=== PATIENT | male | born 1970 | race Caucasian/White ===

== ENCOUNTER → 2020-06-04 08:42 | Outpatient (BNVA) | payer OTHER, SELFPAY | PROVIDERS: PCP Internal Medicine; Referring Provider Internal Medicine; Visit Provider Physician Assistant | DX: Z98.84 Bariatric surgery status (principal); F10.20 Alcohol dependence, uncomplicated | CPT/HCPCS: 99214 ==

== ENCOUNTER → 2020-08-12 09:23 | Outpatient (BNVA) | payer OTHER, SELFPAY | PROVIDERS: PCP Internal Medicine; Visit Provider Physician Assistant | DX: E66.3 Overweight (principal); K91.2 Postsurgical malabsorption, not elsewhere classified; Z90.3 Acquired absence of stomach [part of]; Z98.84 Bariatric surgery status | CPT/HCPCS: Q3014 ==

== ENCOUNTER → 2020-08-17 08:12 | Outpatient (BNVA) | payer OTHER, SELFPAY | PROVIDERS: Visit Provider Dietitian, Registered | DX: Z76.89 Persons encountering health services in other specified circumstances (principal) ==

== ENCOUNTER 2020-11-23 06:09 | Outpatient (REF) | payer OTHER, SELFPAY ==
[2020-11-23 06:35] LABS: MANUAL DIFF FLAG NO
[2020-11-23 06:59] LABS: Basophils Percent Auto 0.3 % (0-2); Eosinophils Absolute Auto 0.2 X10*3/uL (0.0-0.4); Eosinophils Percent Auto 1.9 % (0-4); Hematocrit 46.1 % (42-52); Hemoglobin 15.3 g/dl (14.0-18.0); Imm Gran Abs Auto 0.08 X10*3/uL (0.00-0.03); Imm Gran Pct Auto 0.7 % (0.0-0.4); Lymphocytes Percent Auto 32.8 % (20-40); Mean Corpuscular HGB Conc 33.2 g/dl (31.0-36.0); Mean Corpuscular Hemoglobin 31.2 pg (27.0-33.0); Mean Corpuscular Volume 93.9 fL (80-98); Mean Platelet Volume 10.3 fL (9.4-12.4); Monocytes Absolute Auto 0.9 X10*3/uL (0.1-1.2); Monocytes Percent Auto 7.8 % (2-11); Neutrophils Absolute Auto 6.8 X10*3/uL (2.0-8.3); Neutrophils Percent Auto 56.5 % (45-73); Platelet Count 296 X10*3/uL (160-400); Red Blood Count 4.91 X10*6/uL (4.60-5.80); Red Cell Distribution Width 12.7 % (11.0-16.0); White Blood Count 12.1 X10*3/uL (4.8-10.8)
[2020-11-23 07:12] LABS: Alanine Aminotransferase 15 U/L (0-40); Albumin Level 4.2 g/dL (3.5-5.0); Alkaline Phosphatase 65 U/L (39-117); Anion Gap 13 (12-20); Aspartate Amino Transferase 16 U/L (5-37); Bilirubin Total 0.8 mg/dL (0.0-1.0); Blood Urea Nitrogen 15 mg/dL (9-16); Calcium 9.8 mg/dL (8.4-10.2); Carbon Dioxide 24 mmol/L (22-29); Chloride 107 mmol/L (96-108); Cholesterol 217 mg/dL; Estimated Glomerular Filt Rate > 60; Glucose Fasting 104 mg/dL (60-99); HDL Cholesterol 65 mg/dL; Iron 158 mcg/dL (45-160); LDL Cholesterol Calculated 129 mg/dl; Percent Iron Saturation 41 % (15-50); Potassium 4.2 mmol/L (3.3-5.1); Sodium 140 mmol/L (135-145); Total Iron Binding Capacity 390 mcg/dL (228-428); Total Protein 7.3 g/dL (6.5-8.0); Triglycerides 115 mg/dL; Unsaturated Iron Binding 232 ug/dL
[2020-11-23 07:15] LABS: Estimated Average Glucose 103 mg/dL; Hemoglobin A1c % 5.2 %
[2020-11-23 07:33] LABS: Ferritin 284 ng/mL (20-250); TSH reflex Free T4 0.95 uIU/mL (0.32-4.0); Vitamin D 25-OH Total 24.4 ng/mL (>30)
[2020-11-23 09:24] LABS: Folate > 20.0 ng/mL (> or = 4.0); Vitamin B12 496 pg/mL (200-900)
[2020-11-24 04:41] LABS: Insulin Level Total 4.3 uIU/mL
[2020-11-24 17:52] LABS: Calcium (PTHI) 9.8 mg/dL (8.6-10.3); PTHI 17 pg/mL (14-64)
[2020-11-26 01:52] LABS: Zinc 80 mcg/dL (60-130)
[2020-11-27 12:42] LABS: Vitamin B1 28 nmol/L (8-30)
[2020-11-27 15:26] LABS: Vitamin A 79 mcg/dL (38-98)
[2020-11-27 17:02] LABS: Parathyroid Hormone Related Pr 12 pg/mL (14-27)
== END 2020-11-23 06:10 | disposition home or self-care (01) ==
LOC: HO.LAB 06:09
PROVIDERS: Absent Provider Physician Assistant; PCP Nurse Practitioner Family; Visit Provider Physician Assistant
DX: K91.2 Postsurgical malabsorption, not elsewhere classified (principal); E66.01 Morbid (severe) obesity due to excess calories; F10.20 Alcohol dependence, uncomplicated; Z98.84 Bariatric surgery status; Z90.3 Acquired absence of stomach [part of]
CPT/HCPCS: 36415; 80053; 80061; 82306; 82607; 82728; 82746; 83036; 83519; 83525; 83540; 83970; 84425; 84443; 84590; 84630; 85025; 86140

== ENCOUNTER → 2020-12-15 08:22 | Outpatient (BNVA) | payer OTHER, SELFPAY | PROVIDERS: PCP Nurse Practitioner Family; Visit Provider Physician Assistant | DX: F10.20 Alcohol dependence, uncomplicated (principal); F19.20 Other psychoactive substance dependence, uncomplicated; F31.9 Bipolar disorder, unspecified; Z98.84 Bariatric surgery status | CPT/HCPCS: 99212 ==

== ENCOUNTER → 2021-01-25 13:50 | Outpatient (BNVA) | payer OTHER, SELFPAY | PROVIDERS: PCP Nurse Practitioner Family; Visit Provider Internal Medicine | DX: F10.20 Alcohol dependence, uncomplicated (principal) | CPT/HCPCS: 96372; 99212; J2315 ==

== ENCOUNTER → 2021-02-22 09:42 | Outpatient (BNVA) | payer OTHER, SELFPAY | PROVIDERS: PCP Nurse Practitioner Family; Visit Provider Internal Medicine | DX: F10.20 Alcohol dependence, uncomplicated (principal) | CPT/HCPCS: 80305; 96372; 99212; J2315 ==

== ENCOUNTER → 2021-04-01 13:59 | Outpatient (BNVA) | payer OTHER, SELFPAY | PROVIDERS: PCP Nurse Practitioner Family; Referring Provider Nurse Practitioner Family; Visit Provider Physician Assistant | DX: F10.20 Alcohol dependence, uncomplicated (principal); E66.3 Overweight; Z98.84 Bariatric surgery status; Z68.29 Body mass index [BMI] 29.0-29.9, adult | CPT/HCPCS: 99212 ==

== ENCOUNTER 2021-05-12 08:38 | Emergency (ER) | payer OTHER, SELFPAY ==
--- NOTE | ~2021-05-12 | XR_ITS ---
EXAMINATION: XR CHEST CLINICAL INFORMATION: Chest pain COMPARISON: Chest radiographs 11/15/2018, 07/25/2018 TECHNIQUE: Portable upright AP view of the chest was obtained. FINDINGS: There is no pneumothorax or pleural reaction. No airspace consolidation or definite groundglass opacity. Costophrenic sulci are clear. Fine linear density left base likely bronchovascular markings rather than disc atelectasis. The heart is normal in size. The hilar and mediastinal contours and visualized bony structures are unremarkable. XR/XR chest 1V IMPRESSION: Unremarkable examination.
--- NOTE | 2021-05-12 08:46 | ECG_ITS ---
Test Reason : CHEST PAIN Blood Pressure : / mmHG Vent. Rate : 094 BPM Atrial Rate : 094 BPM P-R Int : 160 ms QRS Dur : 094 ms QT Int : 368 ms P-R-T Axes : 069 030 031 degrees QTc Int : 460 ms Normal sinus rhythm Normal ECG When compared with ECG of 15-AUG-2016 14:55, T wave inversion no longer evident in Inferior leads Referred By: Generic ED Physician Electronically Signed By:MARCOS ASHER
--- NOTE | 2021-05-12 08:47 | ED.CHESTPAIN ---
HPI - Chest Pain General Chief Complaint: Chest Pain Stated Complaint: chest pain Time Seen by Provider: 05/12/21 08:46 Source: patient Mode of arrival: ambulatory Limitations: no limitations History of Present Illness MD complaint: chest pain Onset (ago): week(s) (1) Timing of current episode: constant Prior episodes: No Onset: associated with drug use (smoking crack) Pain location: left chest Pain radiation: none Severity: mild Quality: dull Relieving factors: nothing Exacerbating factors: nothing Treatment prior to arrival: none Related Data Home Medications Medication Instructions Recorded Confirmed bupropion HCl 200 mg tablet,12 hr 200 mg PO DAILY 06/04/20 02/23/21 sustained-release iron,carbonyl 65 mg-vitamin C 125 1 tab PO DAILY 06/04/20 02/23/21 mg tablet,delayed release (Vitron-C) topiramate 100 mg tablet 100 mg PO BID 06/04/20 02/23/21 ziprasidone HCl 60 mg capsule 60 mg PO BID 06/04/20 02/23/21 (Geodon) zolpidem 10 mg tablet 10 mg PO BEDTIME PRN 12/14/20 02/23/21 gabapentin 300 mg capsule 300 mg PO BID 04/01/21 Previous Rx's Medication Instructions Recorded calcium citrate 250 mg 2 tab PO BID #120 tab 08/17/20 calcium-vitamin D3 5 mcg (200 unit) tablet mecobalamin (vitamin B12) 1,000 1,000 mcg PO DAILY #30 tab 11/30/20 mcg chewable tablet docusate sodium 100 mg capsule 100 mg PO BID 30 Days #60 cap 01/23/21 (Stool Softener) nicotine (polacrilex) 4 mg gum 4 mg BUCCAL Q2H 30 Days #100 ea 01/23/21 naltrexone microspheres 380 mg 380 mg IM Q4W #1 ea 01/25/21 intramuscular suspension,extended release (Vivitrol) buspirone 7.5 mg tablet 7.5 mg PO BID #60 tab 03/13/21 multivitamin (Daily-Nella) 1 tab PO DAILY #30 tab 04/01/21 Allergies Allergy/AdvReac Type Severity Reaction Status Date / Time dextromethorphan Allergy Severe Anaphylaxis Verified 04/01/21 14:16 [From [facility] Cold [facility]] guaifenesin Allergy Severe Anaphylaxis Verified 04/01/21 14:16 [From [facility] Cold Relief] lisinopril Allergy Severe Anaphylaxis Verified 04/01/21 14:16 pseudoephedrine Allergy Severe Anaphylaxis Verified 04/01/21 14:16 [From [facility]] clindamycin Allergy Mild Itching Verified 04/01/21 14:16 doxycycline Allergy Mild Shortness Verified 04/01/21 14:16 of Breath Review of Systems Review of Systems: Constitutional : No Weight loss, No Fever, No Chills ENT/Mouth : No sore throat, No Rhinorrhea Eyes: No Eye Pain, No Swelling Cardiovascular : pos Chest Pain, no SOB, no Dyspnea on Exertion, No Orthopnea, No Edema, No Palpitations Respiratory : No Cough, No Sputum Gastrointestinal : no Nausea, No Vomiting, No Diarrhea, No abdominal Pain, No Hematochezia, No Melena Genitourinary : No Dysuria, No Urinary Frequency Musculoskeletal : No joint pain, No Myalgias, No Joint Swelling Skin : No Skin Lesions, No rash Neuro : No Weakness, No Numbness, No Dizziness, No Headache Psych : No Anxiety/Panic, No Depression Heme/Lymph: No Bruising, No Lymphadenopathy Endocrine : No Polyuria, No Polydipsia All other systems reviewed and are negative [facility] Past Medical History Attestation statement: The following information was validated with the patient. Medical History Alcohol dependence Alcohol dependence Bipolar 1 disorder Diabetes Gout Heroin abuse Hyperlipidemia Hypertension Intestinal malabsorption following gastrectomy Kidney disease Obstructive sleep apnea Overweight (BMI 25.0-29.9) Varicose veins of left lower extremity Surgical History S/P laparoscopic sleeve gastrectomy Family History Family History Father No problems noted. Mother No problems noted. Brother No problems noted. Sister No problems noted. Social History Social History (Updated 05/12/21 @ 09:06 by Shanthi Underwood DO) Alcohol intake: current Alcohol intake frequency: a few times a month Patient Tobacco Use Status: Current everyday Tobacco user Tobacco use type: Cigarette Cigarettes Per Day: 20 Years Smoked: 30 Substance Use Type: Crack/Cocaine Advance Directives: No Physical Exam Vital Signs: Vital Signs: Last Vital Signs Pulse 94 05/12/21 09:01 Resp 19 09/16/21 09:01 BP 148/81 H 05/12/21 09:01 Pulse Ox 95 05/12/21 09:01 Body Mass Index 30.1 Appearance: Alert. Oriented X3. No acute distress. Eyes: Pupils equal, round and reactive to light. ENT: Pharynx normal. Neck: Normal inspection. Neck supple. CVS: Normal heart rate and rhythm. Pulses normal. Respiratory: No respiratory distress. Breath sounds normal. Abdomen: Soft and non-tender. Skin: Skin warm and dry. Normal skin color. Normal skin turgor. Extremities: No lower extremity edema. No calf ttp Neuro: Oriented X 3. No motor deficit. No sensory deficit. Course Course Course Narrative: negative workup stable for DC, recovery coaches offered now refusing to wait for recovery coaches MDM - Chest Pain MDM Narrative Medical decision making narrative: 50 yo male with bipolar, DM, HTN, HLD here with 1 week of dull ache in chest no associated symptoms with it started after he was using crack/cocaine. He denies IVDA. He thought it would get better. At this time he is not tachycardic the pain is not pleuritic no cough no fevers no IVDA - at this time will need CXR, EKG, troponin. Atypical for ACS, doubt PE. wants to talk to recovery coaches once medically cleared Lab Data Result diagrams: 05/12/21 09:13 05/12/21 09:13 Labs: Lab Results 05/12/21 05/12/21 05/12/21 Range/Units 09:13 09:13 09:13 WBC 9.8 (4.8-10.8) X10*3/uL RBC 4.88 (4.60-5.80) X10*6/uL Hgb 15.1 (14.0-18.0) g/dl Hct 44.6 (42-52) % MCV 91.4 (80-98) fL MCH 30.9 (27.0-33.0) pg MCHC 33.9 (31.0-36.0) g/dl RDW 14.6 (11.0-16.0) % Plt Count 228 (160-400) X10*3/uL MPV 10.5 (9.4-12.4) fL Immature Gran % (Auto) 0.3 (0.0-0.4) % Neut % (Auto) 59.6 (45-73) % Lymph % (Auto) 27.3 (20-40) % [place] % (Auto) 10.0 (2-11) % Eos % (Auto) 2.3 (0-4) % Baso % (Auto) 0.5 (0-2) % Lymph # (Auto) 2.7 (1.2-4.9) X10*3/uL [place] # (Auto) 1.0 (0.1-1.2) X10*3/uL Eos # (Auto) 0.2 (0.0-0.4) X10*3/uL Baso # (Auto) 0.1 (0.0-0.2) X10*3/uL Abs Immat Gran (auto) 0.03 (0.00-0.03) X10*3/uL Absolute Neuts (auto) 5.8 (2.0-8.3) X10*3/uL Absolute Nucleated RBC 0.000 (0.0-0.012) X10*3/uL Nucleated RBC % (auto) 0.0 (0.0-0.2) /100WBC PT (9.9-13.0) SEC INR (0.9-1.1) APTT (24.1-38.0) SEC Sodium 140 (135-145) mmol/L Potassium 3.9 (3.3-5.1) mmol/L Chloride 108 (96-108) mmol/L Carbon Dioxide 23 (22-29) mmol/L Anion Gap 13 (12-20) BUN 12 (9-16) mg/dL Creatinine 0.83 (0.5-1.4) mg/dL Estim Creat Clear Calc 113.3 Estimated GFR > 60 Random Glucose 125 H (60-115) mg/dL Calcium 9.1 D (8.4-10.2) mg/dL Magnesium (1.6-2.6) mg/dL Total Bilirubin (0.0-1.0) mg/dL Direct Bilirubin (0.0-0.5) mg/dL AST (5-37) U/L ALT (0-40) U/L Alkaline Phosphatase (39-117) U/L Troponin I High Sens (<3.5-35.0) ng/L B-Natriuretic Peptide 15 (<100) pg/mL Total Protein (6.5-8.0) g/dL Albumin (3.5-5.0) g/dL Lipase (8-78) U/L COVID-19 (FAREED) (Negative) COVID-19 Clin Com 05/12/21 05/12/21 05/12/21 Range/Units 09:13 09:13 09:13 WBC (4.8-10.8) X10*3/uL RBC (4.60-5.80) X10*6/uL Hgb (14.0-18.0) g/dl Hct (42-52) % MCV (80-98) fL MCH (27.0-33.0) pg MCHC (31.0-36.0) g/dl RDW (11.0-16.0) % Plt Count (160-400) X10*3/uL MPV (9.4-12.4) fL Immature Gran % (Auto) (0.0-0.4) % Neut % (Auto) (45-73) % Lymph % (Auto) (20-40) % [place] % (Auto) (2-11) % Eos % (Auto) (0-4) % Baso % (Auto) (0-2) % Lymph # (Auto) (1.2-4.9) X10*3/uL [place] # (Auto) (0.1-1.2) X10*3/uL Eos # (Auto) (0.0-0.4) X10*3/uL Baso # (Auto) (0.0-0.2) X10*3/uL Abs Immat Gran (auto) (0.00-0.03) X10*3/uL Absolute Neuts (auto) (2.0-8.3) X10*3/uL Absolute Nucleated RBC (0.0-0.012) X10*3/uL Nucleated RBC % (auto) (0.0-0.2) /100WBC PT 11.1 (9.9-13.0) SEC INR 1.0 (0.9-1.1) APTT 33.4 (24.1-38.0) SEC Sodium (135-145) mmol/L Potassium (3.3-5.1) mmol/L Chloride (96-108) mmol/L Carbon Dioxide (22-29) mmol/L Anion Gap (12-20) BUN (9-16) mg/dL Creatinine (0.5-1.4) mg/dL Estim Creat Clear Calc Estimated GFR Random Glucose (60-115) mg/dL Calcium (8.4-10.2) mg/dL Magnesium 1.9 (1.6-2.6) mg/dL Total Bilirubin 0.5 (0.0-1.0) mg/dL Direct Bilirubin < 0.2 (0.0-0.5) mg/dL AST 14 (5-37) U/L ALT 14 (0-40) U/L Alkaline Phosphatase 59 (39-117) U/L Troponin I High Sens (<3.5-35.0) ng/L B-Natriuretic Peptide (<100) pg/mL Total Protein 6.9 (6.5-8.0) g/dL Albumin 4.1 (3.5-5.0) g/dL Lipase 10 (8-78) U/L COVID-19 (FAREED) Negative (Negative) COVID-19 Clin Com See Note 05/12/21 Range/Units 09:13 WBC (4.8-10.8) X10*3/uL RBC (4.60-5.80) X10*6/uL Hgb (14.0-18.0) g/dl Hct (42-52) % MCV (80-98) fL MCH (27.0-33.0) pg MCHC (31.0-36.0) g/dl RDW (11.0-16.0) % Plt Count (160-400) X10*3/uL MPV (9.4-12.4) fL Immature Gran % (Auto) (0.0-0.4) % Neut % (Auto) (45-73) % Lymph % (Auto) (20-40) % [place] % (Auto) (2-11) % Eos % (Auto) (0-4) % Baso % (Auto) (0-2) % Lymph # (Auto) (1.2-4.9) X10*3/uL [place] # (Auto) (0.1-1.2) X10*3/uL Eos # (Auto) (0.0-0.4) X10*3/uL Baso # (Auto) (0.0-0.2) X10*3/uL Abs Immat Gran (auto) (0.00-0.03) X10*3/uL Absolute Neuts (auto) (2.0-8.3) X10*3/uL Absolute Nucleated RBC (0.0-0.012) X10*3/uL Nucleated RBC % (auto) (0.0-0.2) /100WBC PT (9.9-13.0) SEC INR (0.9-1.1) APTT (24.1-38.0) SEC Sodium (135-145) mmol/L Potassium (3.3-5.1) mmol/L Chloride (96-108) mmol/L Carbon Dioxide (22-29) mmol/L Anion Gap (12-20) BUN (9-16) mg/dL Creatinine (0.5-1.4) mg/dL Estim Creat Clear Calc Estimated GFR Random Glucose (60-115) mg/dL Calcium (8.4-10.2) mg/dL Magnesium (1.6-2.6) mg/dL Total Bilirubin (0.0-1.0) mg/dL Direct Bilirubin (0.0-0.5) mg/dL AST (5-37) U/L ALT (0-40) U/L Alkaline Phosphatase (39-117) U/L Troponin I High Sens 4.3 (<3.5-35.0) ng/L B-Natriuretic Peptide (<100) pg/mL Total Protein (6.5-8.0) g/dL Albumin (3.5-5.0) g/dL Lipase (8-78) U/L COVID-19 (FAREED) (Negative) COVID-19 Clin Com ECG Data ECG #1: Attestation: I personally reviewed and interpreted this ECG as follows: ECG interpretation date: 05/12/21 ECG interpretation time: 09:04 Interpretation: Rate: 94 Rhythm: NSR [place]: normal Normal P waves. Normal [place]. Normal QRS complex. ST T wave : normal no DEMETRICE qTC: normal prior studies: no acute ischemia The study has been interpreted contemporaneously by me. . Discharge Plan Discharge Clinical Impression: Atypical chest pain, Crack cocaine use Patient Disposition: Home, Self-Care Instructions: Chest Pain (ED), Cocaine Abuse (ED) Additional Instructions: return to ED for any worsening symptoms or concerns Prescriptions: No Action mecobalamin (vitamin B12) 1,000 mcg tablet,chewable 1,000 mcg PO DAILY Qty: 30 RF: 5 nicotine (polacrilex) 4 mg gum 4 mg buccal Q2H 30 Days Qty: 100 RF: 0 docusate sodium [Stool Softener] 100 mg capsule 100 mg PO BID 30 Days Qty: 60 RF: 2 buspirone 7.5 mg tablet 7.5 mg PO BID Qty: 60 RF: 5 zolpidem 10 mg tablet 10 mg PO BEDTIME PRNRF: 0 topiramate 100 mg tablet 100 mg PO BID RF: 0 ziprasidone HCl [Geodon] 60 mg capsule 60 mg PO BID RF: 0 bupropion HCl 200 mg tablet sustained-release 12 hr 200 mg PO DAILY RF: 0 Vitron-C 65 mg iron- 125 mg tablet,delayed release (DR/EC) 1 tab PO DAILY RF: 0 calcium citrate-vitamin D3 250 mg-5 mcg (200 unit) tablet 2 tab PO BID Qty: 120 RF: 11 Vivitrol 380 mg suspension,extended rel recon 380 mg IM Q4W Qty: 1 RF: 5 gabapentin 300 mg capsule 300 mg PO BID RF: 0 multivitamin [Daily-Nella] Tablet 1 tab PO DAILY Qty: 30 RF: 11 Referrals: Elio Tolentino, [facility] ESTIMATOR-[facility] [Primary Care Provider] - 2 days (if not better)
[2021-05-12 09:01] VITALS: BP 148/81; PULSE 94; RESP 19; O2SAT 95; BMI 30.1
--- NOTE | 2021-05-12 09:13 | PC.NURSE ---
Pt alert and oriented, vss. Pt reports he has been having chest pain for about one week but he thought it would go away. Pt reports the pain has not gone away therefore he came to the ed to be evaluated out of concern that it might be something serious. He denies sob/headache/dizziness. No apparent distress noted.
[2021-05-12 09:19] LABS: MANUAL DIFF FLAG NO
[2021-05-12 09:22] LABS: Basophils Absolute Auto 0.1 X10*3/uL (0.0-0.2); Basophils Percent Auto 0.5 % (0-2); Eosinophils Absolute Auto 0.2 X10*3/uL (0.0-0.4); Eosinophils Percent Auto 2.3 % (0-4); Hematocrit 44.6 % (42-52); Hemoglobin 15.1 g/dl (14.0-18.0); Imm Gran Abs Auto 0.03 X10*3/uL (0.00-0.03); Imm Gran Pct Auto 0.3 % (0.0-0.4); Lymphocytes Absolute Auto 2.7 X10*3/uL (1.2-4.9); Lymphocytes Percent Auto 27.3 % (20-40); Mean Corpuscular HGB Conc 33.9 g/dl (31.0-36.0); Mean Corpuscular Hemoglobin 30.9 pg (27.0-33.0); Mean Corpuscular Volume 91.4 fL (80-98); Mean Platelet Volume 10.5 fL (9.4-12.4); Neutrophils Absolute Auto 5.8 X10*3/uL (2.0-8.3); Neutrophils Percent Auto 59.6 % (45-73); Platelet Count 228 X10*3/uL (160-400); Red Blood Count 4.88 X10*6/uL (4.60-5.80); Red Cell Distribution Width 14.6 % (11.0-16.0); White Blood Count 9.8 X10*3/uL (4.8-10.8)
[2021-05-12 09:29] LABS: Prothrombin Time 11.1 SEC (9.9-13.0)
[2021-05-12 09:32] LABS: Partial Thromboplastin Time 33.4 SEC (24.1-38.0)
[2021-05-12 09:39] LABS: Anion Gap 13 (12-20); Blood Urea Nitrogen 12 mg/dL (9-16); Calcium 9.1 mg/dL (8.4-10.2); Chloride 108 mmol/L (96-108); Creatinine Clr Calc Pharmacy 113.3; Estimated Glomerular Filt Rate > 60; Glucose Random 125 mg/dL (60-115); Potassium 3.9 mmol/L (3.3-5.1); Sodium 140 mmol/L (135-145)
[2021-05-12 09:40] LABS: Alanine Aminotransferase 14 U/L (0-40); Albumin Level 4.1 g/dL (3.5-5.0); Alkaline Phosphatase 59 U/L (39-117); Aspartate Amino Transferase 14 U/L (5-37); Bilirubin Direct < 0.2 mg/dL (0.0-0.5); Bilirubin Total 0.5 mg/dL (0.0-1.0); Lipase 10 U/L (8-78); Magnesium 1.9 mg/dL (1.6-2.6); Total Protein 6.9 g/dL (6.5-8.0)
[2021-05-12 09:44] LABS: Carbon Dioxide 23 mmol/L (22-29); Troponin-I High Sensitivity 4.3 ng/L (<3.5-35.0)
[2021-05-12 09:45] LABS: B Type Natriuretic Peptide 15 pg/mL (<100)
[2021-05-12 09:47] LABS: COVID-19 Test Negative (Negative); IDNOW Serial# 08D9AD1C
--- NOTE | 2021-05-12 10:09 | MHC.RECOVSUP ---
? Reason for consult:Continuity of care o Current location: Bed 12 o Identified substance use concern:Crack/ETOH - Withdrawal - Seeking ATS (detox) - Support ? Intervention: o ATS bed search started/completed/in process o MAT started or to be started o Community resources provided o Harm reduction discussion ? Plan: o Referral to [facility] o Patient to follow up with [facility] after discharge ? Additional information: Pt. seeking detox, but wants to go home first. Gave patient community resources and my card. Patient on MAT for ETOH at the [facility]. Referred him back there.
== END 2021-05-12 10:45 | disposition home or self-care (01) ==
PROVIDERS: Emergency Provider Emergency Medicine; PCP Nurse Practitioner Family
DX: R07.9 Chest pain, unspecified (principal); F14.10 Cocaine abuse, uncomplicated; R06.02 Shortness of breath; Z20.822 Contact with and (suspected) exposure to COVID-19; F17.210 Nicotine dependence, cigarettes, uncomplicated; Z71.6 Tobacco abuse counseling; Z79.899 Other long term (current) drug therapy
CPT/HCPCS: 36415; 71045; 80048; 80076; 83690; 83735; 83880; 84484; 85025; 85610; 85730; 87635; 93005; 99283

== ENCOUNTER 2021-07-25 06:42 | Outpatient (REF) | payer OTHER, SELFPAY ==
[2021-07-25 07:37] LABS: Alanine Aminotransferase 15 U/L (0-40); Albumin Level 4.2 g/dL (3.5-5.0); Alkaline Phosphatase 55 U/L (39-117); Anion Gap 12 (12-20); Aspartate Amino Transferase 15 U/L (5-37); Bilirubin Total 0.6 mg/dL (0.0-1.0); Blood Urea Nitrogen 13 mg/dL (9-16); Calcium 9.7 mg/dL (8.4-10.2); Carbon Dioxide 28 mmol/L (22-29); Chloride 105 mmol/L (96-108); Cholesterol 248 mg/dL; Estimated Glomerular Filt Rate > 60; Glucose Fasting 97 mg/dL (60-99); HDL Cholesterol 53 mg/dL; LDL Cholesterol Calculated 153 mg/dl; Potassium 4.5 mmol/L (3.3-5.1); Sodium 140 mmol/L (135-145); Total Protein 7.2 g/dL (6.5-8.0); Triglycerides 213 mg/dL
[2021-07-25 07:58] LABS: TSH reflex Free T4 0.79 uIU/mL (0.32-4.0)
[2021-07-25 08:04] LABS: Estimated Average Glucose 117 mg/dL; Hemoglobin A1c % 5.7 %
== END 2021-07-25 06:43 | disposition home or self-care (01) ==
LOC: HO.LAB 06:42
PROVIDERS: PCP Nurse Practitioner Family; Visit Provider Nurse Practitioner Family
DX: E11.9 Type 2 diabetes mellitus without complications (principal)
CPT/HCPCS: 36415; 80053; 80061; 83036; 84443

== ENCOUNTER 2021-07-31 11:41 | Emergency (ER) | payer OTHER, SELFPAY ==
--- NOTE | 2021-07-31 | ECG_ITS ---
Test Reason : MEDICAL CLEARANCE Blood Pressure : / mmHG Vent. Rate : 101 BPM Atrial Rate : 101 BPM P-R Int : 126 ms QRS Dur : 086 ms QT Int : 354 ms P-R-T Axes : 017 021 019 degrees QTc Int : 459 ms Sinus tachycardia Otherwise normal ECG When compared with ECG of 12-MAY-2021 08:47, No significant change was found Referred By: Generic ED Physician Electronically Signed By:Bahman Madison
[2021-07-31 11:47] VITALS: BP 123/96; PULSE 100; RESP 18; TEMP 36.8; O2SAT 95
[2021-07-31 12:20] LABS: MANUAL DIFF FLAG NO
[2021-07-31 12:21] LABS: Basophils Percent Auto 0.4 % (0-2); Eosinophils Absolute Auto 0.1 X10*3/uL (0.0-0.4); Eosinophils Percent Auto 1.1 % (0-4); Hematocrit 45.3 % (42.0-52.0); Hemoglobin 15.4 g/dl (14.0-18.0); Imm Gran Abs Auto 0.05 X10*3/uL (0.00-0.03); Imm Gran Pct Auto 0.5 % (0.0-0.4); Lymphocytes Absolute Auto 3.2 X10*3/uL (1.2-4.9); Lymphocytes Percent Auto 28.9 % (20-40); Mean Corpuscular Volume 91.3 fL (80.0-98.0); Mean Platelet Volume 10.5 fL (9.4-12.4); Monocytes Absolute Auto 0.9 X10*3/uL (0.1-1.2); Monocytes Percent Auto 7.9 % (2-11); Neutrophils Absolute Auto 6.8 x10*3/uL (2.0-8.3); Neutrophils Percent Auto 61.2 % (45-73); Platelet Count 230 X10*3/uL (160-400); Red Blood Count 4.96 X10*6/uL (4.60-5.80); Red Cell Distribution Width 12.9 % (11.0-16.0); White Blood Count 11.1 X10*3/uL (4.8-10.8)
[2021-07-31 12:43] LABS: Alanine Aminotransferase 15 U/L (0-40); Albumin Level 4.1 g/dL (3.5-5.0); Alkaline Phosphatase 58 U/L (39-117); Anion Gap 13 (12-20); Aspartate Amino Transferase 15 U/L (5-37); Bilirubin Total 0.6 mg/dL (0.0-1.0); Blood Urea Nitrogen 17 mg/dL (9-16); Calcium 9.4 mg/dL (8.4-10.2); Carbon Dioxide 23 mmol/L (22-29); Chloride 107 mmol/L (96-108); Creatinine Clr Calc Pharmacy 130.4; Estimated Glomerular Filt Rate > 60; Glucose Random 108 mg/dL (60-115); Potassium 3.8 mmol/L (3.3-5.1); Sodium 139 mmol/L (135-145); Total Protein 7.2 g/dL (6.5-8.0)
[2021-07-31 13:00] LABS: Influenza A PCR NEGATIVE (Negative); Influenza B PCR NEGATIVE (Negative); Resp Syncy Virus RNA Qual PCR NEGATIVE (Negative); SARS COV2 PCR INHOUSE NEGATIVE (Negative)
--- NOTE | 2021-07-31 13:42 | ED_ITS ---
HPI - Medical Clearance General Chief complaint: Medical Clearance Stated complaint: tests? Time Seen by Provider: 07/31/21 12:24 Source: patient and family Mode of arrival: ambulatory Limitations: no limitations History of Present Illness MD complaint: medical clearance requested Onset (ago): day(s) ( Today) Reason for Medical Clearance: other ( for [facility] for detox) Alleged Intoxication: No Compliant with Home Medications: Yes Traumatic Symptoms: denies traumatic injury Associated Symptoms: denies other symptoms Treatments Prior to Arrival: none Related Information Home Medications Medication Instructions Recorded Confirmed bupropion HCl 200 mg tablet,12 hr 200 mg PO DAILY 06/04/20 02/23/21 sustained-release iron,carbonyl 65 mg-vitamin C 125 1 tab PO DAILY 06/04/20 02/23/21 mg tablet,delayed release (Vitron-C) topiramate 100 mg tablet 100 mg PO DAILY 06/04/20 02/23/21 ziprasidone HCl 60 mg capsule 120 mg PO BEDTIME 06/04/20 02/23/21 (Geodon) gabapentin 300 mg capsule 300 mg PO TID 04/01/21 hydroxyzine HCl 25 mg tablet 1 - 2 tab PO BID PRN 05/12/21 topiramate 100 mg tablet 200 mg PO BEDTIME 05/12/21 Previous Rx's Medication Instructions Recorded calcium citrate 250 mg 2 tab PO BID #120 tab 08/17/20 calcium-vitamin D3 5 mcg (200 unit) tablet mecobalamin (vitamin B12) 1,000 1,000 mcg PO DAILY #30 tab 11/30/20 mcg chewable tablet docusate sodium 100 mg capsule 100 mg PO BID 30 Days #60 cap 01/23/21 (Stool Softener) nicotine (polacrilex) 4 mg gum 4 mg BUCCAL Q2H 30 Days #100 ea 01/23/21 naltrexone microspheres 380 mg 380 mg IM Q4W #1 ea 01/25/21 intramuscular suspension,extended release (Vivitrol) multivitamin (Daily-Nella) 1 tab PO DAILY #30 tab 04/01/21 atorvastatin 20 mg tablet 20 mg PO BEDTIME 90 Days #90 tab 07/25/21 Allergies Allergy/AdvReac Type Severity Reaction Status Date / Time dextromethorphan Allergy Severe Anaphylaxis Verified 04/01/21 14:16 [From [facility]] guaifenesin Allergy Severe Anaphylaxis Verified 04/01/21 14:16 [From [facility] Relief] lisinopril Allergy Severe Anaphylaxis Verified 04/01/21 14:16 pseudoephedrine Allergy Severe Anaphylaxis Verified 04/01/21 14:16 [From [facility] Cold Relief] clindamycin Allergy Mild Itching Verified 04/01/21 14:16 doxycycline Allergy Mild Shortness Verified 04/01/21 14:16 of Breath Review of Systems Review of Systems: Constitutional : No Fever, No Chills ENT/Mouth : No Ear Pain, No Nasal Congestion, No sore throat Eyes: No Eye Pain, No Swelling, No Redness Cardiovascular : No Chest Pain, No SOB Respiratory : No Cough, No Sputum, No Dyspnea Gastrointestinal : No ingestions, No Nausea, No Vomiting, No Diarrhea, No Hematochezia, No Melena Genitourinary : No Dysuria, No Urinary Frequency, No Hematuria Musculoskeletal : No Myalgias Skin : No Skin Lesions, No rash Neuro : No Weakness, No Numbness, No Paresthesias, No Dizziness, No Headache Psych : No Anxiety, No Depression, No SI/HI, No AVH, No thoughts of self injury Heme/Lymph: No Lymphadenopathy Endocrine : No Polyuria, No Polydipsia Yes all other systems are reviewed and are negative [facility] Past Medical History Attestation statement: The following information was validated with the patient. Medical History Alcohol dependence Alcohol dependence Bipolar 1 disorder Diabetes Gout Heroin abuse Hyperlipidemia Hypertension Intestinal malabsorption following gastrectomy Kidney disease Obstructive sleep apnea Overweight (BMI 25.0-29.9) Varicose veins of left lower extremity Surgical History S/P laparoscopic sleeve gastrectomy Family History Family History Father No problems noted. Mother No problems noted. Brother No problems noted. Sister No problems noted. Social History Social History Alcohol intake: current Alcohol intake frequency: a few times a month Patient Tobacco Use Status: Current everyday Tobacco user Tobacco use type: Cigarette Cigarettes Per Day: 20 Years Smoked: 30 Substance Use Type: Crack/Cocaine Advance Directives: No Advance Directives Information Provided: Yes Physical Exam Vital Signs: Vital Signs: Last Vital Signs Temp 98.3 F 07/31/21 11:47 Pulse 100 07/31/21 11:47 Resp 18 07/31/21 11:47 BP 123/96 H 07/31/21 11:47 Pulse Ox 95 07/31/21 11:47 BMI result Body Mass Index 0.3 vital signs have been reviewed as normal and appeared to be correct. Blood pressure normal. Heart rate normal. Respiration rate normal. Temperature normal. Oxygen saturation normal. Appearance: Alert. Oriented X3. No acute distress. Head: Normal external exam. Normocephalic. Atraumatic. No Theodore signs noted. No raccoon eyes noted Eyes: PERRLA. EOMI. Conjunctiva and sclera normal. Eyelids normal. ENT: EAC normal. TM's Normal. Pharynx normal. Uvula midline. Moist mucous membranes. No trismus noted. No drooling noted. No muffled voice noted. Neck: Normal inspection. Neck supple. FROM. No adenopathy. Thyroid Normal. No meningeal signs. No neck mass noted. CVS: Normal heart rate and rhythm. Heart sound normal. Pulses normal throughout. No murmurs/rales/gallops. Respiratory: No respiratory distress. Painless inspiration. Breath sounds normal. No wheezes/rales/rhonchi noted. Chest nontender. No accessory muscle usage noted or decreased air movement noted. Abdomen: Soft and nontender. Bowel sounds normal in all 4 quadrants. No distention noted. No organomegaly noted. No visible injury noted. Back: No CVA tenderness. Full range of motion noted. No rashes/lesion/indur ation/fluctuance or signs of infection noted. Skin: Skin warm and dry. Normal skin color. Normal skin turgor. No rashes/lesions/lacerations noted. Extremities: No lower extremity edema. Extremities exhibit normal range of motion. Extremities nontender. Neuro: Oriented X 3. No motor deficit. No sensory deficit. Reflexes normal. Normal steady gait. No focal neuro deficits noted. Vascular: + radial pulses/+ 2 distal pedal pulses/+2 dorsalis pedis b/l. Normal cap refill. No cyanosis noted to upper extremity nails and lower extremity toes nails. Course Course Course Narrative: 50-year-old male presenting to the ED with request for medical clearance to [facility] for [facility]. He denies any symptoms at this time. Labs are reviewed and patient with an elevated white blood cell count [id number]. Otherwise all other labs are within normal limits. Patient negative for COVID/RSV/ flu. Therefore at this time patient medically cleared we will fax the information over to [facility] at [phone]. Patient will go directly there at this time. He is instructed to return if any new or worsening symptoms and to follow up with primary care provider as well. Patient understands agrees with this plan. MDM - Medical Clearance Medical Records Attestation: I reviewed the patient's medical records. Lab Data Attestation: I reviewed the patient's lab results. Result diagrams: 07/31/21 12:15 07/31/21 12:15 Labs: Lab Results 07/31/21 07/31/21 07/31/21 Range/Units 12:15 12:15 12:15 WBC 11.1 H (4.8-10.8) X10*3/uL RBC 4.96 (4.60-5.80) X10*6/uL Hgb 15.4 (14.0-18.0) g/dl Hct 45.3 (42.0-52.0) % MCV 91.3 (80.0-98.0) fL MCH 31.0 (27.0-33.0) pg MCHC 34.0 (31.0-36.0) g/dl RDW 12.9 (11.0-16.0) % Plt Count 230 (160-400) X10*3/uL MPV 10.5 (9.4-12.4) fL Immature Gran % (Auto) 0.5 H (0.0-0.4) % Neut % (Auto) 61.2 (45-73) % Lymph % (Auto) 28.9 (20-40) % [place] % (Auto) 7.9 (2-11) % Eos % (Auto) 1.1 (0-4) % Baso % (Auto) 0.4 (0-2) % Lymph # (Auto) 3.2 (1.2-4.9) X10*3/uL [place] # (Auto) 0.9 (0.1-1.2) X10*3/uL Eos # (Auto) 0.1 (0.0-0.4) X10*3/uL Baso # (Auto) 0.0 (0.0-0.2) X10*3/uL Abs Immat Gran (auto) 0.05 H (0.00-0.03) X10*3/uL Absolute Neuts (auto) 6.8 (2.0-8.3) x10*3/uL Absolute Nucleated RBC 0.000 (0.0-0.012) X10*3/uL Nucleated RBC % (auto) 0.0 (0.0-0.2) /100WBC Sodium 139 (135-145) mmol/L Potassium 3.8 (3.3-5.1) mmol/L Chloride 107 (96-108) mmol/L Carbon Dioxide 23 (22-29) mmol/L Anion Gap 13 (12-20) BUN 17 H (9-16) mg/dL Creatinine 0.85 (0.5-1.4) mg/dL Estim Creat Clear Calc 130.4 Estimated GFR > 60 Random Glucose 108 (60-115) mg/dL Calcium 9.4 (8.4-10.2) mg/dL Total Bilirubin 0.6 (0.0-1.0) mg/dL AST 15 (5-37) U/L ALT 15 (0-40) U/L Alkaline Phosphatase 58 (39-117) U/L Total Protein 7.2 (6.5-8.0) g/dL Albumin 4.1 (3.5-5.0) g/dL Influenza Type A (PCR) NEGATIVE (Negative) Influenza Type B (PCR) NEGATIVE (Negative) RSV RNA Qual (PCR) NEGATIVE (Negative) SARS-CoV-2 RNA (RT-PCR) NEGATIVE (Negative) ECG Data Attestation: I personally reviewed and interpreted this ECG as follows: ECG interpretation date: 07/31/21 ECG interpretation time: 12:05 Interpretation: Sinus Tachycardia with ventricular rate of 1 along with a normal NE interval normal QRS duration with QT/QTC interval. No acute ischemic change are noted. Similar compared to prior EKG 05/12/2021. Discharge Plan Discharge Clinical Impression: Admitted to substance misuse detoxification center Patient Disposition: Home, Self-Care Instructions: Medical Clearance for Substance Abuse Treatment (ED) Prescriptions: No Action mecobalamin (vitamin B12) 1,000 mcg tablet,chewable 1,000 mcg PO DAILY Qty: 30 RF: 5 nicotine (polacrilex) 4 mg gum 4 mg buccal Q2H 30 Days Qty: 100 RF: 0 docusate sodium [Stool Softener] 100 mg capsule 100 mg PO BID 30 Days Qty: 60 RF: 2 atorvastatin 20 mg tablet 20 mg PO BEDTIME 90 Days Qty: 90 RF: 0 hydroxyzine HCl 25 mg tablet 1 - 2 tab PO BID PRN (Reason: anxiety) RF: 0 topiramate 100 mg tablet 200 mg PO BEDTIME RF: 0 topiramate 100 mg tablet 100 mg PO DAILY RF: 0 ziprasidone HCl [Geodon] 60 mg capsule 120 mg PO BEDTIME RF: 0 bupropion HCl 200 mg tablet sustained-release 12 hr 200 mg PO DAILY RF: 0 Vitron-C 65 mg iron- 125 mg tablet,delayed release (DR/EC) 1 tab PO DAILY RF: 0 calcium citrate-vitamin D3 250 mg-5 mcg (200 unit) tablet 2 tab PO BID Qty: 120 RF: 11 Vivitrol 380 mg suspension,extended rel recon 380 mg IM Q4W Qty: 1 RF: 5 gabapentin 300 mg capsule 300 mg PO TID RF: 0 multivitamin [Daily-Nella] Tablet 1 tab PO DAILY Qty: 30 RF: 11 Referrals: Elio Tolentino, [employer] [Primary Care Provider] - 2 days Print Language: Kyrgyz
--- NOTE | 2021-07-31 13:50 | MHC.RECOVSUP ---
Recovery Support note: Patient is a 50 year old Mohawk speaking male who presented to [facility] ED for medical clearance. This senior mortgage underwriter faxed patient information to [facility] and spoke with Mai. Mai reports patient is approved for admission. This senior mortgage underwriter met with patient to inform him that he has been approved. Patient expressed frustration that he had to come to [facility] and wait to get medical clearance. Reassured patient that he has the bed and that he will be discharging shortly. Discussed case with scrap charger.
== END 2021-07-31 13:55 | disposition home or self-care (01) ==
PROVIDERS: Emergency Provider Emergency Medicine; PCP Nurse Practitioner Family
DX: Z02.2 Encounter for examination for admission to residential institution (principal); F10.20 Alcohol dependence, uncomplicated; F11.10 Opioid abuse, uncomplicated; E11.9 Type 2 diabetes mellitus without complications; I10 Essential (primary) hypertension; Z20.822 Contact with and (suspected) exposure to COVID-19
CPT/HCPCS: 0241U; 36415; 80053; 85025; 93005; 99283; 99284

== ENCOUNTER 2021-08-24 11:39 | Emergency (ER) | payer OTHER, SELFPAY | END 2021-08-24 19:01 | disposition left against medical advice (07) | PROVIDERS: Emergency Provider Emergency Medicine; PCP Nurse Practitioner Family | DX: Z02.2 Encounter for examination for admission to residential institution (principal); Z20.822 Contact with and (suspected) exposure to COVID-19 ==

== ENCOUNTER 2021-08-25 08:04 | Emergency (ER) | payer OTHER, SELFPAY ==
--- NOTE | 2021-08-25 08:16 | ECG_ITS ---
Test Reason : med clear Blood Pressure : / mmHG Vent. Rate : 090 BPM Atrial Rate : 090 BPM P-R Int : 136 ms QRS Dur : 096 ms QT Int : 360 ms P-R-T Axes : 054 020 030 degrees QTc Int : 440 ms Normal sinus rhythm Normal ECG When compared with ECG of 31-JUL-2021 12:05, No significant change was found Referred By: Shanthi Underwood Electronically Signed By:Bahman Madison
--- NOTE | 2021-08-25 08:16 | ED.ALCOHOL ---
HPI - Alcohol General Chief Complaint: ETOH/Substance Use Stated Complaint: detox Time Seen by Provider: 08/25/21 08:16 Source: patient Mode of arrival: ambulatory Limitations: no limitations History of Present Illness HPI narrative: has bed at local detox needs clearance MD complaint: alcohol dependence and desires rehab Last drink: Days (ago) (1) Chronic alcohol use: Yes Previous visits for alcohol intoxication: Yes Recent trauma: No Associated symptoms: denies other symptoms Treatments prior to arrival: none Related Data Home Medications Medication Instructions Recorded Confirmed bupropion HCl 200 mg tablet,12 hr 200 mg PO DAILY 06/04/20 02/23/21 sustained-release iron,carbonyl 65 mg-vitamin C 125 1 tab PO DAILY 06/04/20 02/23/21 mg tablet,delayed release (Vitron-C) topiramate 100 mg tablet 100 mg PO DAILY 06/04/20 02/23/21 ziprasidone HCl 60 mg capsule 120 mg PO BEDTIME 06/04/20 02/23/21 (Geodon) gabapentin 300 mg capsule 300 mg PO TID 04/01/21 hydroxyzine HCl 25 mg tablet 1 - 2 tab PO BID PRN 05/12/21 topiramate 100 mg tablet 200 mg PO BEDTIME 05/12/21 Previous Rx's Medication Instructions Recorded calcium citrate 250 mg 2 tab PO BID #120 tab 08/17/20 calcium-vitamin D3 5 mcg (200 unit) tablet mecobalamin (vitamin B12) 1,000 1,000 mcg PO DAILY #30 tab 11/30/20 mcg chewable tablet docusate sodium 100 mg capsule 100 mg PO BID 30 Days #60 cap 01/23/21 (Stool Softener) nicotine (polacrilex) 4 mg gum 4 mg BUCCAL Q2H 30 Days #100 ea 01/23/21 naltrexone microspheres 380 mg 380 mg IM Q4W #1 ea 01/25/21 intramuscular suspension,extended release (Vivitrol) multivitamin (Daily-Nella) 1 tab PO DAILY #30 tab 04/01/21 atorvastatin 20 mg tablet 20 mg PO BEDTIME 90 Days #90 tab 07/25/21 Allergies Allergy/AdvReac Type Severity Reaction Status Date / Time dextromethorphan Allergy Severe Anaphylaxis Verified 04/01/21 14:16 [facility] guaifenesin Allergy Severe Anaphylaxis Verified 04/01/21 14:16 [From [facility]] lisinopril Allergy Severe Anaphylaxis Verified 04/01/21 14:16 pseudoephedrine Allergy Severe Anaphylaxis Verified 04/01/21 14:16 [From [facility]] clindamycin Allergy Mild Itching Verified 04/01/21 14:16 doxycycline Allergy Mild Shortness Verified 04/01/21 14:16 of Breath Review of Systems Review of Systems: Constitutional : No Fever, No Chills ENT/Mouth : No Ear Pain, No Nasal Congestion, No sore throat Eyes: No Eye Pain, No Swelling, No Redness Cardiovascular : No Chest Pain, No SOB Respiratory : No Cough, No Sputum, No Dyspnea Gastrointestinal : No Nausea, No Vomiting, No Diarrhea, No Hematochezia, No Melena Genitourinary : No Dysuria, No Urinary Frequency, No Hematuria Musculoskeletal : No Myalgias Skin : No Skin Lesions, No rash Neuro : No Weakness, No Numbness, No Paresthesias, No Dizziness, No Headache Psych : positive Anxiety, positive Depression, no SI/HI Heme/Lymph: No Lymphadenopathy Endocrine : No Polyuria, No Polydipsia All other systems reviewed and are negative [facility] Past Medical History Medical History Alcohol dependence Alcohol dependence Bipolar 1 disorder Diabetes Gout Heroin abuse Hyperlipidemia Hypertension Intestinal malabsorption following gastrectomy Kidney disease Obstructive sleep apnea Overweight (BMI 25.0-29.9) Varicose veins of left lower extremity Surgical History S/P laparoscopic sleeve gastrectomy Family History Family History Father No problems noted. Mother No problems noted. Brother No problems noted. Sister No problems noted. Social History Social History Alcohol intake: current Alcohol intake frequency: 3 or more drinks per day Alcohol type: beer Patient Tobacco Use Status: Current everyday Tobacco user Tobacco use type: Cigarette Cigarettes Per Day: 20 Years Smoked: 30 Use of substances other than those prescribed or required for medical reasons: Yes Substance Use Type: Crack/Cocaine Advance Directives: No Advance Directives Information Provided: Yes Physical Exam Vital Signs: Vital Signs: Last Vital Signs Temp 97.9 F 08/25/21 08:18 Pulse 85 08/25/21 09:19 Resp 16 08/25/21 09:19 BP 134/86 08/25/21 09:19 Pulse Ox 95 08/25/21 09:19 BMI result Body Mass Index 31.9 Appearance: Alert. Oriented X3. No acute distress. Eyes: Pupils equal, round and reactive to light. ENT: Pharynx normal. Neck: Normal inspection. Neck supple. CVS: Normal heart rate and rhythm. Pulses normal. Respiratory: No respiratory distress. Breath sounds normal. Abdomen: Soft and non-tender. Skin: Skin warm and dry. Normal skin color. Normal skin turgor. Extremities: No lower extremity edema. No calf ttp Neuro: Oriented X 3. No motor deficit. No sensory deficit. MDM - Alcohol MDM Narrative Medical decision making narrative: 50 yo male with alcoholism and HLD here with med clearance for detox requesting labs and EKG/COVID swab, no signs of active withdrawal at this time. Labs and EKG ordered. Plan is place from outpatient Lab Data Result diagrams: 08/25/21 08:52 08/25/21 08:52 Labs: Lab Results 08/25/21 08/25/21 08/25/21 Range/Units 08:52 08:52 08:52 WBC 9.8 (4.8-10.8) X10*3/uL RBC 4.86 (4.60-5.80) X10*6/uL Hgb 14.8 (14.0-18.0) g/dl Hct 44.5 (42.0-52.0) % MCV 91.6 (80.0-98.0) fL MCH 30.5 (27.0-33.0) pg MCHC 33.3 (31.0-36.0) g/dl RDW 13.2 (11.0-16.0) % Plt Count 218 (160-400) X10*3/uL MPV 10.1 (9.4-12.4) fL Immature Gran % (Auto) 0.3 (0.0-0.4) % Neut % (Auto) 56.7 (45-73) % Lymph % (Auto) 29.6 (20-40) % Metcalfe % (Auto) 10.8 (2-11) % Eos % (Auto) 2.3 (0-4) % Baso % (Auto) 0.3 (0-2) % Lymph # (Auto) 2.9 (1.2-4.9) X10*3/uL Metcalfe # (Auto) 1.1 (0.1-1.2) X10*3/uL Eos # (Auto) 0.2 (0.0-0.4) X10*3/uL Baso # (Auto) 0.0 (0.0-0.2) X10*3/uL Abs Immat Gran (auto) 0.03 (0.00-0.03) X10*3/uL Absolute Neuts (auto) 5.5 (2.0-8.3) x10*3/uL Absolute Nucleated RBC 0.000 (0.0-0.012) X10*3/uL Nucleated RBC % (auto) 0.0 (0.0-0.2) /100WBC Sodium 138 (135-145) mmol/L Potassium 3.9 (3.3-5.1) mmol/L Chloride 109 H (96-108) mmol/L Carbon Dioxide 25 (22-29) mmol/L Anion Gap 8 L (12-20) BUN 13 (9-16) mg/dL Creatinine 0.79 (0.5-1.4) mg/dL Estim Creat Clear Calc 122.4 Estimated GFR > 60 Random Glucose 115 (60-115) mg/dL Calcium 8.9 (8.4-10.2) mg/dL Magnesium 1.9 (1.6-2.6) mg/dL Total Bilirubin 0.6 (0.0-1.0) mg/dL Direct Bilirubin 0.2 (0.0-0.5) mg/dL AST 15 (5-37) U/L ALT 17 (0-40) U/L Alkaline Phosphatase 59 (39-117) U/L Total Protein 7.0 (6.5-8.0) g/dL Albumin 4.0 (3.5-5.0) g/dL COVID-19 (FAREED) Negative (Negative) COVID-19 Clin Com See Note ECG Data ECG #1: Attestation: I personally reviewed and interpreted this ECG as follows: ECG interpretation date: 08/25/21 ECG interpretation time: 08:28 Interpretation: Rate: 90 Rhythm: NSR [place]: normal Normal P waves. Normal ROSE. Normal QRS complex. ST T wave : normal no DEMETRICE qTC: normal prior studies: no acute ischemia The study has been interpreted contemporaneously by me. . Discharge Plan Discharge Clinical Impression: Alcohol dependence Patient Disposition: Home, Self-Care Instructions: Alcohol Dependence (ED) Additional Instructions: return to ED for any worsening symptoms or concerns MEDICALLY CLEARED FOR DETOX, COVID NEGATIVE Prescriptions: No Action mecobalamin (vitamin B12) 1,000 mcg tablet,chewable 1,000 mcg PO DAILY Qty: 30 RF: 5 nicotine (polacrilex) 4 mg gum 4 mg buccal Q2H 30 Days Qty: 100 RF: 0 docusate sodium [Stool Softener] 100 mg capsule 100 mg PO BID 30 Days Qty: 60 RF: 2 atorvastatin 20 mg tablet 20 mg PO BEDTIME 90 Days Qty: 90 RF: 0 hydroxyzine HCl 25 mg tablet 1 - 2 tab PO BID PRN (Reason: anxiety) RF: 0 topiramate 100 mg tablet 200 mg PO BEDTIME RF: 0 topiramate 100 mg tablet 100 mg PO DAILY RF: 0 ziprasidone HCl [Geodon] 60 mg capsule 120 mg PO BEDTIME RF: 0 bupropion HCl 200 mg tablet sustained-release 12 hr 200 mg PO DAILY RF: 0 Vitron-C 65 mg iron- 125 mg tablet,delayed release (DR/EC) 1 tab PO DAILY RF: 0 calcium citrate-vitamin D3 250 mg-5 mcg (200 unit) tablet 2 tab PO BID Qty: 120 RF: 11 Vivitrol 380 mg suspension,extended rel recon 380 mg IM Q4W Qty: 1 RF: 5 gabapentin 300 mg capsule 300 mg PO TID RF: 0 multivitamin [Daily-Nella] Tablet 1 tab PO DAILY Qty: 30 RF: 11
[2021-08-25 08:18] VITALS: BP 161/86; PULSE 96; RESP 20; TEMP 36.6; O2SAT 96; BMI 31.9
[2021-08-25 09:02] LABS: MANUAL DIFF FLAG NO
[2021-08-25 09:03] LABS: Basophils Percent Auto 0.3 % (0-2); Eosinophils Absolute Auto 0.2 X10*3/uL (0.0-0.4); Eosinophils Percent Auto 2.3 % (0-4); Hematocrit 44.5 % (42.0-52.0); Hemoglobin 14.8 g/dl (14.0-18.0); Imm Gran Abs Auto 0.03 X10*3/uL (0.00-0.03); Imm Gran Pct Auto 0.3 % (0.0-0.4); Lymphocytes Absolute Auto 2.9 X10*3/uL (1.2-4.9); Lymphocytes Percent Auto 29.6 % (20-40); Mean Corpuscular HGB Conc 33.3 g/dl (31.0-36.0); Mean Corpuscular Hemoglobin 30.5 pg (27.0-33.0); Mean Corpuscular Volume 91.6 fL (80.0-98.0); Mean Platelet Volume 10.1 fL (9.4-12.4); Monocytes Absolute Auto 1.1 X10*3/uL (0.1-1.2); Monocytes Percent Auto 10.8 % (2-11); Neutrophils Absolute Auto 5.5 x10*3/uL (2.0-8.3); Neutrophils Percent Auto 56.7 % (45-73); Platelet Count 218 X10*3/uL (160-400); Red Blood Count 4.86 X10*6/uL (4.60-5.80); Red Cell Distribution Width 13.2 % (11.0-16.0); White Blood Count 9.8 X10*3/uL (4.8-10.8)
[2021-08-25 09:16] LABS: COVID-19 Test Negative (Negative)
[2021-08-25 09:19] VITALS: BP 134/86; PULSE 85; RESP 16; O2SAT 95
[2021-08-25 09:27] LABS: Alanine Aminotransferase 17 U/L (0-40); Alkaline Phosphatase 59 U/L (39-117); Anion Gap 8 (12-20); Aspartate Amino Transferase 15 U/L (5-37); Bilirubin Direct 0.2 mg/dL (0.0-0.5); Bilirubin Total 0.6 mg/dL (0.0-1.0); Blood Urea Nitrogen 13 mg/dL (9-16); Calcium 8.9 mg/dL (8.4-10.2); Carbon Dioxide 25 mmol/L (22-29); Chloride 109 mmol/L (96-108); Creatinine Clr Calc Pharmacy 122.4; Estimated Glomerular Filt Rate > 60; Glucose Random 115 mg/dL (60-115); Magnesium 1.9 mg/dL (1.6-2.6); Potassium 3.9 mmol/L (3.3-5.1); Sodium 138 mmol/L (135-145)
== END 2021-08-25 09:48 | disposition home or self-care (01) ==
PROVIDERS: Emergency Provider Emergency Medicine; PCP Nurse Practitioner Family
DX: F10.20 Alcohol dependence, uncomplicated (principal); F17.210 Nicotine dependence, cigarettes, uncomplicated; Z71.6 Tobacco abuse counseling; F14.10 Cocaine abuse, uncomplicated; Z79.899 Other long term (current) drug therapy; Z20.822 Contact with and (suspected) exposure to COVID-19
CPT/HCPCS: 36415; 80048; 80076; 83735; 85025; 87635; 93005; 99283; 99285

== ENCOUNTER 2021-09-09 14:45 | Outpatient (REF) | payer OTHER, SELFPAY ==
--- NOTE | ~2021-09-09 | XR_ITS ---
EXAMINATION: XR SHOULDER, RIGHT CLINICAL INFORMATION: Right shoulder pain. COMPARISON: None TECHNIQUE: 3 views of the right shoulder. FINDINGS: The bones and soft tissues are normal. No fracture. Glenohumeral and acromioclavicular alignment is anatomic with normal joint space. No abnormal soft tissue calcifications. XR/XR shoulder RT min 2V IMPRESSION: Unremarkable right shoulder.
== END 2021-09-09 14:46 | disposition home or self-care (01) ==
LOC: HO.HMGCX 14:45
PROVIDERS: PCP Nurse Practitioner Family; Visit Provider Nurse Practitioner Family
DX: S46.911A Strain of unspecified muscle, fascia and tendon at shoulder and upper arm level, right arm, initial encounter (principal); M25.511 Pain in right shoulder
CPT/HCPCS: 73030

== ENCOUNTER 2021-09-15 06:04 | Outpatient (REF) | payer OTHER, SELFPAY ==
[2021-09-15 07:36] LABS: Cholesterol 150 mg/dL; Cholesterol 151 mg/dL; HDL Cholesterol 40 mg/dL; HDL Cholesterol 41 mg/dL; LDL Cholesterol Calculated 78 mg/dl; Triglycerides 161 mg/dL; Triglycerides 163 mg/dL
[2021-09-15 07:54] LABS: Estimated Average Glucose 108 mg/dL; Hemoglobin A1c % 5.4 %
[2021-09-15 07:57] LABS: TSH reflex Free T4 1.19 uIU/mL (0.32-4.0); Vitamin D 25-OH Total 24.9 ng/mL (>30)
[2021-09-15 08:05] LABS: Folate > 20.0 ng/mL (> or = 4.0); Vitamin B12 1750 pg/mL (200-900)
[2021-09-16 13:06] LABS: Calcium (PTHI) 9.8 mg/dL (8.6-10.3); PTHI 20 pg/mL (14-64)
[2021-09-20 03:36] LABS: Zinc 75 mcg/dL (60-130)
[2021-09-21 02:01] LABS: Vitamin A 84 mcg/dL (38-98)
[2021-09-21 17:42] LABS: Vitamin B1 32 nmol/L (8-30)
== END 2021-09-15 06:05 | disposition home or self-care (01) ==
LOC: HO.LAB 06:04
PROVIDERS: Absent Provider Nurse Practitioner Family; PCP Nurse Practitioner Family; Visit Provider Physician Assistant
DX: E78.5 Hyperlipidemia, unspecified (principal); F10.20 Alcohol dependence, uncomplicated; Z98.84 Bariatric surgery status
CPT/HCPCS: 36415; 80061; 82306; 82607; 82746; 83036; 83970; 84425; 84443; 84590; 84630

== ENCOUNTER 2021-09-22 07:44 | Outpatient (REF) | payer OTHER, SELFPAY ==
[2021-09-22 12:09] LABS: Creatinine Urine 103.28 mg/dL; Microalbum/Creatinine Ratio Ur 11.6 ug/mg cr
== END 2021-09-22 07:45 | disposition home or self-care (01) ==
LOC: HO.HMGCLDS 07:44
PROVIDERS: Visit Provider Nurse Practitioner Family
DX: E11.9 Type 2 diabetes mellitus without complications (principal)
CPT/HCPCS: 82043

== ENCOUNTER 2021-09-28 02:15 | Emergency (ER) | payer OTHER, SELFPAY ==
[2021-09-28 02:20] VITALS: BP 115/76; PULSE 87; RESP 16; TEMP 36.3; O2SAT 96; BMI 30.4
--- NOTE | 2021-09-28 02:35 | ED_ITS ---
HPI - Skin/Abscess/Foreign Bdy General Chief complaint: Skin/Abscess/Foreign Body Stated complaint: ?Cyst Time Seen by Provider: 09/28/21 02:18 Source: patient Mode of arrival: ambulatory Limitations: no limitations History of Present Illness HPI narrative: Patient comes to emergency room complaining right axillary cysts. Patient states that he has had multiple abscesses in the same area in the past which required draining. Patient denies fever chills. Patient states the cysts are very painful, red, hot. Related Data Home Medications Medication Instructions Recorded Confirmed bupropion HCl 200 mg tablet,12 hr 200 mg PO DAILY 06/04/20 09/22/21 sustained-release topiramate 100 mg tablet 100 mg PO DAILY 06/04/20 09/22/21 ziprasidone HCl 60 mg capsule 120 mg PO BEDTIME 06/04/20 09/22/21 (Geodon) topiramate 100 mg tablet 200 mg PO BEDTIME 05/12/21 09/22/21 gabapentin 100 mg capsule 200 mg PO TID cap 09/22/21 09/22/21 Previous Rx's Medication Instructions Recorded calcium citrate 250 mg 2 tab PO BID #120 tab 08/17/20 calcium-vitamin D3 5 mcg (200 unit) tablet mecobalamin (vitamin B12) 1,000 1,000 mcg PO DAILY #30 tab 11/30/20 mcg chewable tablet docusate sodium 100 mg capsule 100 mg PO BID 30 Days #60 cap 01/23/21 (Stool Softener) multivitamin (Daily-Nella) 1 tab PO DAILY #30 tab 04/01/21 atorvastatin 20 mg tablet 20 mg PO BEDTIME 90 Days #90 tab 09/22/21 cholecalciferol (vitamin D3) 25 25 mcg PO DAILY #30 cap 09/22/21 mcg (1,000 unit) capsule ibuprofen 800 mg tablet 800 mg PO Q8H #30 tab 09/22/21 ibuprofen 600 mg tablet 600 mg PO TID PRN #20 tab 09/28/21 oxycodone 5 mg tablet 5 mg PO BID PRN #10 tab 09/28/21 sulfamethoxazole 800 1 tab PO BID #19 tab 09/28/21 mg-trimethoprim 160 mg tablet (Bactrim DS) Allergies Allergy/AdvReac Type Severity Reaction Status Date / Time lisinopril Allergy Severe Anaphylaxis Verified 09/28/21 02:20 clindamycin Allergy Mild Itching Verified 09/28/21 02:20 doxycycline Allergy Mild Shortness Verified 09/28/21 02:20 of Breath Review of Systems Verdana 4l Review of Systems: Verdana 4d Verdana 4d Constitutional : No Weight loss, No Fever, No Chills, No Night Sweats, No Fatigue, No Malaise ENT/Mouth : No Hearing loss, No Ear Pain, No Nasal Congestion, No Sinus Pain, No Hoarseness, No sore throat, No Rhinorrhea, No Swallowing DifficultyDifficulty Eyes: No Eye Pain, No Swelling, No Redness, No Foreign Body, No Discharge, No Vision Changes Cardiovascular : No Chest Pain, No SOB, No Dyspnea on Exertion, No Orthopnea, No Edema, No Palpitations Respiratory : No Cough, No Sputum, No Wheezing, No Smoke Exposure, No Dyspnea Gastrointestinal : No Nausea, No Vomiting, No Diarrhea, No Constipation, No abdominal Pain, No Hematochezia, No Melena Genitourinary : no irregular bleeding, No Dysuria, No Urinary Frequency, No Hematuria, No Urinary Incontinence, No Urgency, No Flank Pain, No Urinary Flow Changes, No Hesitancy Musculoskeletal : No joint pain, No Myalgias, No Joint Swelling Skin : Complaining of abscesses in the right axilla Neuro : No Weakness, No Numbness, No Paresthesias, No Loss of Consciousness, No Dizziness, No Headache Psych : No Anxiety/Panic, No Depression, No SI/HI/AH/VH, No Social Issues, Heme/Lymph: No Bruising, No Bleeding,No Lymphadenopathy Endocrine : No Polyuria, No Polydipsia, No Temperature Intolerance [facility] Past Medical History Medical History Alcohol dependence Alcohol dependence Bipolar 1 disorder Diabetes Gout Heroin abuse Hyperlipidemia Hypertension Intestinal malabsorption following gastrectomy Kidney disease Obstructive sleep apnea Overweight (BMI 25.0-29.9) Varicose veins of left lower extremity Surgical History S/P laparoscopic sleeve gastrectomy Family History Family History Father No problems noted. Mother No problems noted. Brother No problems noted. Sister No problems noted. Social History Social History Housing: Apartment Alcohol intake: current Alcohol intake frequency: 3 or more drinks per day Alcohol type: beer Patient Tobacco Use Status: Current everyday Tobacco user Tobacco use type: Cigarette Cigarettes Per Day: 20 Years Smoked: 30 e-Cigarette/Vaping Use: Never Used Substance Use Type: Crack/Cocaine Advance Directives: No Current occupational status: disabled Cognitive needs: No Hearing needs: No Vision needs: No Physical Exam Verdana 4l Vital Signs: Verdana 4d Verdana 4d Vital Signs: Verdana 4d Verdana 4Bd Last Vital Signs Verdana 4d Illusionist New 4d Illusionist New 4d Temp 97.4 F 09/28/21 02:20 Illusionist New 4d Pulse 87 09/28/21 02:20 Illusionist New 4d Resp 16 09/28/21 02:20 BP 115/76 09/28/21 02:20 Pulse Ox 96 09/28/21 02:20 BMI result Body Mass Index 30.4 Const: Other: Appearance: Alert. Oriented X3. No acute distress. Eyes: Pupils equal, round and reactive to light. ENT: Pharynx normal. Neck: Normal inspection. Neck supple. No lymph nodes noted. No crepitus CVS: Normal heart rate and rhythm. Pulses normal. Normal S1 and S2 Respiratory: No respiratory distress. Breath sounds normal. No Wheezing. No rales Abdomen: Soft and nontender. No rigidity. No distention. good BS x4 Skin: Skin warm and dry. Bedside ultrasound shows 2 cysts in the right axilla, skin erythematous, warm, very tender to touch Extremities: No lower extremity edema. No lower extremity edema. No Lacerations. No Rash Neuro: Oriented X 3. No motor deficit. No sensory deficit. Moving all extermities. No slurred speech. Course Course Course Narrative: The 2 abscesses were actually communicated, once the larger abscess was drained, the 2nd smaller 1 started draining the 1st incision as well. A large amount of pus obtained. Patient given the 1st dose of antibiotic, Bactrim. Procedures Abscess I/D Site: upper extremity (Right axilla) Side (if applicable): right Local Anesthetic: lidocaine 2% Amount of anesthesia used (mL): 15 Technique: incised with blade and ultrasound guided Amount of fluid expressed (mL): 30 Sent for culture/gram staining?: No Irrigation: No Packing used?: iodoform Discharge Plan Discharge Clinical Impression: Abscess Patient Disposition: Home, Self-Care Instructions: Abscess (ED) Additional Instructions: The packing needs to be removed in 24-48 hours. You can return to the emergency room or go to urgent care or your primary care physician. Please follow-up with your primary care physician tomorrow. If you have any worsening or new symptoms, please return to the emergency room or call 911 Prescriptions: New sulfamethoxazole-trimethoprim [Bactrim DS] 800-160 mg tablet 1 tab PO BID Qty: 19 0RF oxycodone 5 mg tablet 5 mg PO BID PRN (Reason: pain) Qty: 10 0RF ibuprofen 600 mg tablet 600 mg PO TID PRN (Reason: pain) Qty: 20 0RF No Action mecobalamin (vitamin B12) 1,000 mcg tablet,chewable 1,000 mcg PO DAILY Qty: 30 5RF docusate sodium [Stool Softener] 100 mg capsule 100 mg PO BID 30 Days Qty: 60 2RF cholecalciferol (vitamin D3) 25 mcg (1,000 unit) capsule 25 mcg PO DAILY Qty: 30 11RF topiramate 100 mg tablet 200 mg PO BEDTIME 0RF gabapentin 100 mg capsule 200 mg PO TID 0RF atorvastatin 20 mg tablet 20 mg PO BEDTIME 90 Days Qty: 90 0RF ibuprofen 800 mg tablet 800 mg PO Q8H Qty: 30 0RF ketorolac 60 mg/2 mL solution 60 mg IM ONCE Qty: 2 0RF topiramate 100 mg tablet 100 mg PO DAILY 0RF ziprasidone HCl [Geodon] 60 mg capsule 120 mg PO BEDTIME 0RF Rx Instructions: give with food (meal/snack) bupropion HCl 200 mg tablet sustained-release 12 hr 200 mg PO DAILY 0RF calcium citrate-vitamin D3 250 mg-5 mcg (200 unit) tablet 2 tab PO BID Qty: 120 11RF multivitamin [Daily-Nella] Tablet 1 tab PO DAILY Qty: 30 11RF
[2021-09-28] MEDS: oxyCODONE HCl Immed Release 5 MG TABLET PO ×2 (02:42→03:32)
[2021-09-28] MEDS: Lidocaine HCl 2 % MPF 5 ML VIAL 20 ML INFILTRATI (03:10)
[2021-09-28] MEDS: Sulfamethox/Trimeth 800/160 TABLET 1 TAB PO (03:32)
== END 2021-09-28 03:38 | disposition home or self-care (01) ==
LOC: HO.ED 03:29
PROVIDERS: Emergency Provider Emergency Medicine; PCP Nurse Practitioner Family
DX: L02.411 Cutaneous abscess of right axilla (principal); F17.210 Nicotine dependence, cigarettes, uncomplicated; Z71.6 Tobacco abuse counseling; Z79.899 Other long term (current) drug therapy
CPT/HCPCS: 10060; 99283; 99284

== ENCOUNTER → 2021-10-03 13:19 | Outpatient (BNVA) | payer OTHER, SELFPAY | PROVIDERS: PCP Nurse Practitioner Family; Referring Provider Nurse Practitioner Family; Visit Provider Physician Assistant | DX: E66.9 Obesity, unspecified (principal); F10.20 Alcohol dependence, uncomplicated; Z98.84 Bariatric surgery status; Z68.30 Body mass index [BMI] 30.0-30.9, adult | CPT/HCPCS: 99212 ==

== ENCOUNTER 2021-11-11 06:02 | Outpatient (REF) | payer OTHER, SELFPAY ==
[2021-11-11 07:16] LABS: Appearance Urine CLEAR; Color Urine YELLOW; Glucose Urine UA NEG (NEG); Leukocyte Esterase Urine NEG (NEG); Nitrite Urine NEG (NEG); Specific Gravity - Urine 1.015 (1.005-1.025); Urine Blood NEG (NEG); Urine Ketones NEG (NEG); Urine Protein NEG (NEG-TRACE)
[2021-11-11 07:41] LABS: Alanine Aminotransferase 21 U/L (0-40); Albumin Level 4.2 g/dL (3.5-5.0); Alkaline Phosphatase 52 U/L (39-117); Anion Gap 13 (12-20); Aspartate Amino Transferase 15 U/L (5-37); Bilirubin Total 0.5 mg/dL (0.0-1.0); Blood Urea Nitrogen 16 mg/dL (9-16); Calcium 9.3 mg/dL (8.4-10.2); Carbon Dioxide 25 mmol/L (22-29); Chloride 103 mmol/L (96-108); Cholesterol 173 mg/dL; Estimated Glomerular Filt Rate > 60; Glucose Fasting 88 mg/dL (60-99); HDL Cholesterol 35 mg/dL; LDL Cholesterol Calculated 106 mg/dl; Potassium 4.3 mmol/L (3.3-5.1); Sodium 137 mmol/L (135-145); Triglycerides 160 mg/dL
[2021-11-11 08:04] LABS: Prostate Specific Antigen Scr 0.58 ng/mL (<0.05-4.0); TSH reflex Free T4 1.18 uIU/mL (0.32-4.0)
== END 2021-11-11 06:03 | disposition home or self-care (01) ==
LOC: HO.LAB 06:02
PROVIDERS: PCP Nurse Practitioner Family; Visit Provider Nurse Practitioner Family
DX: Z00.00 Encounter for general adult medical examination without abnormal findings (principal); Z12.5 Encounter for screening for malignant neoplasm of prostate
CPT/HCPCS: 36415; 80053; 80061; 81003; 84153; 84443

== ENCOUNTER 2021-11-11 08:36 | Outpatient (REF) | payer OTHER, SELFPAY ==
--- NOTE | ~2021-11-11 | XR_ITS ---
EXAMINATION: XR SHOULDER, LEFT CLINICAL INFORMATION: Pain COMPARISON: None TECHNIQUE: 3 views of the left shoulder. FINDINGS: Bone alignment is normal. No fracture or dislocation is seen. There are mild degenerative changes at the glenohumeral and acromioclavicular joints. There is a small soft tissue calcification adjacent to the greater tuberosity suggestive of calcific tendinitis. XR/XR shoulder LT min 2V IMPRESSION: Degenerative changes.
== END 2021-11-11 08:37 | disposition home or self-care (01) ==
LOC: HO.HMGCX 08:36
PROVIDERS: PCP Nurse Practitioner Family; Visit Provider Physician Assistant Medical
DX: M25.512 Pain in left shoulder (principal)
CPT/HCPCS: 73030

== ENCOUNTER 2021-11-23 14:00 | Outpatient (RCR) | payer OTHER, SELFPAY ==
--- NOTE | 2021-10-19 13:56 | MHC.PT.EP ---
[facility] [place] Office [place] Office [place] Office [address] Betty Kelly [address] [phone] F: [phone] F: [phone] F: [phone] F: [phone] Physical Therapy Plan of Care Date of Evaluation: Date of Surgery: Diagnosis: This is a 50 yo male presenting to skilled PT with a script for strain of R shoulder. Assessment: This is a 50 yo male presenting to skilled PT with a script for strain of R shoulder. Patient reporting B shoulder pain after recently starting to work out at the gym (he started last week and goes every day except for the weekends, 20 min sessions). Pain increases on the R at rest but improves with putting his hand behind his head (described as constant achy). Pain increases on the L when he attempts to use the arm or when he tries to move him arm behind him (described as sharp with movements). He is RHD. He reports that he recently had a cyst removed at the R axillary region (and has had multiple ones removed in the pas). Reports that he also helped his girlfriend move after cyst was removed and feels like it is returning. Assessment reveals pain that ranges up to an 8/10. He demos B decreased shoulder ROM (worse on L), decreased B shoulder and scapular strength (worse on L again), impaired posture at rest and with movements, impaired B GHJ joint mobility as well as gross functional decline with reaching, lifting, pushing and pulling. He is a good candidate for skilled PT 2x/wk for 5wks. Frequency and Duration: The patient will be seen 2x/wk for 5wks Short Term Goals: I in HEP Demo good scap/retract/stab with HEP without need from cues from PT Patient will return to upper body I work at the gym Quality Control Assessor Goals: Demos functional ROM and strength Improve SPADI by at least 10 points Improve pain at the worst to no more than 2/10 Demo proper lifting, squatting and carrying techniques without increase in pain or radiating symptoms Treatment Plan: Modalities to reduce pain, spasms and effusion. Manual therapy to restore motion and function. Therapeutic exercise to improve strength and flexibility. Neuromuscular re-education for posture and balance. Therapeutic activities to return to functional activities of daily living. Electronically signed by: Melinda Nunez PT Please sign and return to therapist. Thank you for your referral.
--- NOTE | 2021-11-23 14:56 | MHC.PT.DC ---
[facility] [place] Office [place] Office [place] Office [address] Betty Kelly [address] [facility] [phone] F: [phone] F: [phone] F: [phone] F: [phone] Physical Therapy Discharge Report Diagnosis: This is a 50 yo male presenting to skilled PT with a script for strain of R shoulder. Date of Surgery: Date of Evaluation: 10/19/21 Date of Discharge: 11/23/21 Treatments to Date: 8 Cancellations to Date: 0 No Shows to Date: 0 Discharge Status: Achieved Goals Improved Function Independent with HEP Discharge Summary: Harlan has improved ROM, strength and pain of the R shoulder. He tolerates weighted ther-ex without more than muscle soreness or exercise induced soreness. He has a new script for his L shoulder and per insurance we are DCing and moving onto his L shoulder at this time. He has a very thorough HEP to continue on his own and at the gym for his R shoulder. DC to HEP Electronically signed by: Melinda Nunez PT Please sign and return to therapist. Thank you for your referral.
== END 2021-11-23 14:57 | disposition home or self-care (01) ==
LOC: HO.PTCHIC 14:00
PROVIDERS: PCP Nurse Practitioner Family; Visit Provider Nurse Practitioner Family
DX: S46.911A Strain of unspecified muscle, fascia and tendon at shoulder and upper arm level, right arm, initial encounter (principal)
CPT/HCPCS: 97110; 97162

== ENCOUNTER 2021-12-21 05:58 | Outpatient (REF) | payer OTHER, SELFPAY ==
[2021-12-21 06:15] LABS: MANUAL DIFF FLAG NO
[2021-12-21 07:22] LABS: Basophils Percent Auto 0.2 % (0-2); Eosinophils Absolute Auto 0.3 X10*3/uL (0.0-0.4); Eosinophils Percent Auto 2.3 % (0-4); Hematocrit 41.9 % (42.0-52.0); Hemoglobin 13.9 g/dl (14.0-18.0); Imm Gran Abs Auto 0.09 X10*3/uL (0.00-0.03); Imm Gran Pct Auto 0.7 % (0.0-0.4); Lymphocytes Absolute Auto 2.8 X10*3/uL (1.2-4.9); Lymphocytes Percent Auto 20.4 % (20-40); Mean Corpuscular HGB Conc 33.2 g/dl (31.0-36.0); Mean Corpuscular Hemoglobin 29.9 pg (27.0-33.0); Mean Corpuscular Volume 90.1 fL (80.0-98.0); Mean Platelet Volume 10.7 fL (9.4-12.4); Monocytes Absolute Auto 1.1 X10*3/uL (0.1-1.2); Neutrophils Absolute Auto 9.3 x10*3/uL (2.0-8.3); Neutrophils Percent Auto 68.4 % (45-73); Platelet Count 305 X10*3/uL (160-400); Red Blood Count 4.65 X10*6/uL (4.60-5.80); Red Cell Distribution Width 12.9 % (11.0-16.0); White Blood Count 13.6 X10*3/uL (4.8-10.8)
[2021-12-21 07:46] LABS: Anion Gap 10 (12-20); Blood Urea Nitrogen 21 mg/dL (9-16); Calcium 9.4 mg/dL (8.4-10.2); Carbon Dioxide 24 mmol/L (22-29); Chloride 108 mmol/L (96-108); Estimated Glomerular Filt Rate > 60; Iron 37 mcg/dL (45-160); Percent Iron Saturation 12 % (15-50); Potassium 4.4 mmol/L (3.3-5.1); Sodium 138 mmol/L (135-145); Total Iron Binding Capacity 304 mcg/dL (228-428); Unsaturated Iron Binding 267 ug/dL
[2021-12-21 08:22] LABS: Estimated Average Glucose 108 mg/dL; Hemoglobin A1c % 5.4 %
== END 2021-12-21 05:59 | disposition home or self-care (01) ==
LOC: HO.LAB 05:58
PROVIDERS: PCP Nurse Practitioner Family; Visit Provider Internal Medicine Nephrology
DX: E78.5 Hyperlipidemia, unspecified (principal); I10 Essential (primary) hypertension
CPT/HCPCS: 36415; 80051; 82310; 82565; 83036; 83540; 84520; 85025

== ENCOUNTER 2021-12-28 14:00 | Outpatient (RCR) | payer OTHER, SELFPAY ==
--- NOTE | 2021-12-05 15:06 | MHC.PT.EP ---
[facility] [place] Office [place] Office [place] Office [address] Betty Kelly [address] [phone] F: [phone] F: [phone] F: [phone] F: [phone] Physical Therapy Plan of Care Date of Evaluation: Date of Surgery: Diagnosis: This is a 50 yo male presenting to skilled PT with a script for pain in the L shoulder Assessment: This is a 50 yo male presenting to skilled PT with a script for pain in the L shoulder. Patient has been here in the past for his R shoulder pain and did well, improving pain and ROM. His L shoulder started to bother him shortly after his L did. This occurred insidiously about 4 months ago. Overall, pain improved on the R with therapy and now he is ready to work on his L (due to insurance, we were obligated to work on shoulders separately). Pain is located deep inside , pain is described as sharp. He has no pain at rest. Pain increases with laying on the L side, reaching forward, out to the side and behind him. Pain also increases with pushing and pulling as well. Pain improves with rest. He returns to his PCP on 12/12. Assessment reveals pain that ranges up to a 6/10. He demos decreased cervical, thoracic and B shoulder ROM, decreased B shoulder and scapular strength, impaired resting posture with elevated L shoulder, forward head and compensatory movements, impaired shoulder and thoracic joint mobility as well as gross functional decline with ADLs, lifting, pushing and pulling. He is a good candidate for skilled PT 2x/wk for 5wks. Frequency and Duration: The patient will be seen 2x/wk for 5wks Short Term Goals: I in HEP Demo proper cervical and equal shoulder alignment and posture with ther-ex, no PT cuing Kitchen Utility Associate Goals: Demo functional AROM without pain Improve pain to no more than 2/10 at the worst Improve SPADI by 10 points Tolerate sleeping through the night without waking from pain, tolerate laying on the L side Demo at least 4+/5 scapular and shoulder strength Treatment Plan: Modalities to reduce pain, spasms and effusion. Manual therapy to restore motion and function. Therapeutic exercise to improve strength and flexibility. Neuromuscular re-education for posture and balance. Therapeutic activities to return to functional activities of daily living. Electronically signed by: Melinda Nunez PT Please sign and return to therapist. Thank you for your referral.
--- NOTE | 2022-01-02 14:47 | MHC.PT.PR ---
[facility] [place] [facility] [place] [facility] [place] Office [address] Betty Kelly [address] [phone] F: [phone] F: [phone] F: [phone] F: [phone] Physical Therapy Progress Note Diagnosis: This is a 50 yo male presenting to skilled PT with a script for pain in the L shoulder Date of Surgery: Date of Evaluation: 12/05/21 Treatments to Date: 6 Cancellations to Date: 0 No Shows to Date: 0 Subjective: Patient comes in reporting pain has not relieved at all. Pain Score and Location: 8 L shoulder Objective Measures: Patient has been coming for shoulder pain. He was originally here for the R shoulder which improved but the L is not improving. He demos 8/10 pain with all movements whether functional or not. We have trialed STM, ionto, stim, mobs and PROM (which made pain worse), postural ed and exercise. He may benefit from further imaging of MRI and/or referral to ortho for cortisone injection? We are holding PT at this time due to lack of improvements with our care. He is actively going to the gym and modifying activities to tolerance. Educated on use, safety and avoiding frozen shoulder. Assessment: 12/28: Performed light massage and ther-ex due to soreness from last session. Demos good flexion tolerance today, utilized stim for pain. Enjoyed soft tissue. No adverse reactions noted 12/26: Held ionto today and focused more on mobs and PROM. Pain is appearing to stay consistent. Usually occurs with movement. Ended with ice for pain management. 12/21: Shoulder soreness is about the same as eval. I did ionto #4 but will probably hold this next session due to limited change in pain. Trial stim instead. Educated on the need to slow movements and demo proper posture. States that he does 25# bicep curls, I educated him that he needs to work post delt and prevent anterior translation of HH with this exercise 12/19: Shoulder is still sore, he saw his PCP who prescribed meloxicam which has not been helping yet. Continues to demo LUT elevation with ther-ex and posture. Cues used throughout the session verbally and tactile. Performed stat patch #3. Continued modalities for pain management. States that he has not really been doing anything due to no feeling well and has not been to the gym. 12/07: Harlan was gaurded with passive movements but with tendon massage he loosed but and relaxed. Exercised to tolerance. He demos very little ability to scap retract in prone. Needs cues in standing for posture and avoiding UT compensation. Updated HEP. Educated him to avoid bench press at gym. Performed stat patch ionto #2 with ed on care for home. This is a 50 yo male presenting to skilled PT with a script for pain in the L shoulder. Patient has been here in the past for his R shoulder pain and did well, improving pain and ROM. His L shoulder started to bother him shortly after his L did. This occurred insidiously about 4 months ago. Overall, pain improved on the R with therapy and now he is ready to work on his L (due to insurance, we were obligated to work on shoulders separately). Pain is located deep inside , pain is described as sharp. He has no pain at rest. Pain increases with laying on the L side, reaching forward, out to the side and behind him. Pain also increases with pushing and pulling as well. Pain improves with rest. He returns to his PCP on 12/12. Assessment reveals pain that ranges up to a 6/10. He demos decreased cervical, thoracic and B shoulder ROM, decreased B shoulder and scapular strength, impaired resting posture with elevated L shoulder, forward head and compensatory movements, impaired shoulder and thoracic joint mobility as well as gross functional decline with ADLs, lifting, pushing and pulling. He is a good candidate for skilled PT 2x/wk for 5wks. PT Plan: Hold PT Frequency and Duration: The patient will be seen 2x/wk for 5wks Treatment Plan: Therapeutic Exercise Dynamic Therapeutic Activities Neuromuscular Re-ed Manual Therapies Joint Mobilization Taping Home Exercise Program Patient Education Electrical Stimulation Iontophoresis Hot or Cold Pack KT (denies to allergies tape or adhesives) Reviewed/ Agreed with Student Documentation: Therapist: Thank you once again for your referral.
--- NOTE | 2022-01-27 12:55 | MHC.PT.DC ---
[facility] [place] Office [place] Office [place] Office [address] Betty Kelly [address] [phone] F: [phone] F: [phone] F: [phone] F: [phone] Physical Therapy Discharge Report Diagnosis: This is a 50 yo male presenting to skilled PT with a script for pain in the L shoulder Date of Surgery: Date of Evaluation: 12/05/21 Date of Discharge: 01/27/22 Treatments to Date: 6 Cancellations to Date: 0 No Shows to Date: 0 Discharge Status: Patient Elected to Stop Recommend MD Follow-up Discharge Summary: Patient was not improving with pain/symptoms and elected to hold PT and follow up with PCP. He has an HEP to continue on his own in the mean time. His chart was kept open for 30 days prior to DC in case patient wanted or was instructed to return. DC to HEP at this time. Electronically signed by: Melinda Nunez PT Please sign and return to therapist. Thank you for your referral.
== END 2022-01-27 12:56 | disposition home or self-care (01) ==
LOC: HO.PTCHIC 14:00
PROVIDERS: PCP Nurse Practitioner Family; Visit Provider Physician Assistant Medical
DX: M25.512 Pain in left shoulder (principal)
CPT/HCPCS: 97014; 97033; 97110; 97140; 97162

== ENCOUNTER 2022-01-10 07:16 | Outpatient (REF) | payer OTHER, SELFPAY ==
--- NOTE | ~2022-01-10 | MR_ITS ---
EXAMINATION: MRI LEFT SHOULDER WITHOUT CONTRAST CLINICAL INFORMATION: Left shoulder pain. COMPARISON: Radiographs 11/11/2021. TECHNIQUE: MRI of the shoulder without contrast is performed on a 1.5 Danita high-field scanner. FINDINGS: ROTATOR CUFF: Subscapularis tendinopathy/tendinitis with mild ill-defined undersurface partial tearing. The rotator cuff is otherwise intact. Subtle focus of calcific tendinitis of the distal supraspinatus tendon demonstrated on the radiographs as well. No muscle atrophy or fatty infiltration. BICEPS: Normal. CORACOACROMIAL ARCH: The undersurface of the acromion is flat with no subacromial spur. Mild acromioclavicular osteoarthritis. LABRUM/CAPSULE: No definite labral tear. There are areas of intermediate signal and edema along the joint capsule, particularly in the rotator cuff interval, which may represent adhesive capsulitis. GLENOHUMERAL JOINT/MARROW: No joint effusion. Minimal degenerative spurring of the greater and lesser tuberosities and glenoid rim. ADDITIONAL FINDINGS: None. MR/MR shoulder LT wo con IMPRESSION: Subscapularis tendinosis with mild undersurface fraying. Minimal supraspinatus calcific tendinitis. Mild acromioclavicular and glenohumeral osteoarthritis. Possible adhesive capsulitis.
== END 2022-01-10 07:17 | disposition home or self-care (01) ==
LOC: HO.MRI 07:16
PROVIDERS: Visit Provider Nurse Practitioner Family
DX: M25.512 Pain in left shoulder (principal)
CPT/HCPCS: 73221

== ENCOUNTER → 2022-01-17 07:50 | Outpatient (BNVA) | payer OTHER, SELFPAY | PROVIDERS: PCP Nurse Practitioner Family; Referring Provider Nurse Practitioner Family; Visit Provider Nurse Practitioner Family | DX: Z12.11 Encounter for screening for malignant neoplasm of colon (principal); K59.01 Slow transit constipation | CPT/HCPCS: 99202 ==

== ENCOUNTER → 2022-01-19 08:37 | Outpatient (BNVA) | payer OTHER, SELFPAY | PROVIDERS: PCP Nurse Practitioner Family; Visit Provider Orthopaedic Surgery | DX: M75.42 Impingement syndrome of left shoulder (principal); E11.9 Type 2 diabetes mellitus without complications | CPT/HCPCS: 20610; 99202; J1100 ==

== ENCOUNTER → 2022-04-06 14:52 | Outpatient (BNVA) | payer OTHER, SELFPAY | PROVIDERS: PCP Nurse Practitioner Family; Visit Provider Physician Assistant | DX: E66.3 Overweight (principal); E11.9 Type 2 diabetes mellitus without complications; F10.20 Alcohol dependence, uncomplicated; Z98.84 Bariatric surgery status; Z71.3 Dietary counseling and surveillance | CPT/HCPCS: 99212 ==

== ENCOUNTER 2022-04-27 10:15 | Day surgery (SDC) | payer OTHER, SELFPAY ==
[2022-04-21 13:19] VITALS: BMI 29.5
[2022-04-27] MEDS: Lactated Ringers 1,000 ML 100 ML IVCONT (10:43)
--- NOTE | 2022-04-27 10:48 | MHC.SHP ---
Pre-Procedural Eval Section A Date of Service: 04/27/22 Section B Chief Complaint: screening Relevant Family History (Specify if Yes): No Relevant Social History: Tobacco Use (ex alcoholic, ex cocaine user ) Present Medications: see Short Stay Collaborative assessment Medical History: Significant History (Alcohol dependence Alcohol dependence Bipolar 1 disorder Diabetes Gout Heroin abuse Hyperlipidemia Hypertension Intestinal malabsorption following gastrectomy Kidney disease Obstructive sleep apnea Overweight (BMI 25.0-29.9) Varicose veins of left lower extremity) History of Previous Operations: Relevant previous surgery/procedure and date(s) (sleeve gastrectomy ) Allergies: Allergies Allergy/AdvReac Type Severity Reaction Status Date / Time lisinopril Allergy Severe Anaphylaxis Verified 04/27/22 10:38 clindamycin Allergy Mild Itching Verified 04/27/22 10:38 doxycycline Allergy Mild Shortness Verified 04/27/22 10:38 of Breath Review of Systems Sugical H&P ROS: Negative: Constitution, Cardiovascular, Respiratory, Neurological, Psychiatric, Hem-Onc, Allergic/Immunologic, Gastrointestinal, Genitourinary, Musculoskeletal, Integumentary, Endocrine and Eyes/Ears/Nose/Throat Exam Surgical H&P Exam: Normal: HEENT, Normal: Heart, Normal: Lungs, Normal: Extremities, Normal: Abdomen, Normal: Skin and Normal: Neurological Plan Diagnosis/Plan: Unchanged I have reviewed the history and physical and performed a pertinent physical examination on my patient. No changes have occurred unless specified.
[2022-04-27 10:50] VITALS: BP 113/73; PULSE 81; RESP 18; TEMP 36.4; O2SAT 96
--- NOTE | 2022-04-27 10:50 | W.PM.OPN ---
Operative Note Operative Note Date of Service: 04/27/22 Narrative: Operative Information Procedure Description: Colonoscopy Indication: screening Anesthesia: MAC COLONOSCOPY Instrument: Olympus variable stiffness pediatric scope 190L Colonoscopy Monitoring: Vital signs and clinical assessment, continuous EKG monitoring, Pulse oximetry, Carbon Dioxide monitoring and blood pressure monitoring were done throughout the procedure. Colon withdrawal time was 16 minutes. Procedure: The patient was placed in the left lateral decubitis position and pre-procedure medications were administered. After a digital rectal examination of the ano-rectum, the video colonoscope was inserted into the rectum and advanced through the colon to the cecum/TI. The colonoscope was slowly withdrawn in a retrograde panoramic fashion and the colon mucosa was carefully examined including a retroflexed view of the rectum. Findings and interventions are described below. Procedure Difficulty: easy Findings: Terminal Ileum-normal Cecum:normal Ascending Colon: normal Transverse Colon -normal Descending Colon:normal Sigmoid Colon: normal Rectum: Retroflexion with moderate sized internal hemorrhoids, grade I x 2 sessile polyps noted 10-12 mm removed with cold snare with one clip applied to one area for hemostasis, x3 sessile polyps 5-7 mm removed with cold forceps Anorectum - normal Colon preparation: [place] Bowel Preparation Scale Right colon; 1-2 Transverse colon: 2 Left colon; 2 (0 = Unprepared colon segment with mucosa not seen due to solid stool that cannot be cleared. 1 = Portion of mucosa of the colon segment seen, but other areas of the colon segment not well seen due to staining, residual stool and/or opaque liquid. 2 = Minor amount of residual staining, small fragments of stool and/or opaque liquid, but mucosa of colon segment seen well. 3 = Entire mucosa of colon segment seen well with no residual staining, small fragments of stool or opaque liquid) Impression and Post Procedure Diagnosis: polyps internal hemorrhoids Plan: High fiber diet leaflet Avoid straining at stool, epsom salts and sitz bath, anusol supps or cream Repeat Colonoscopy in 3-5 years if adenomatous polyps. If hyperplastic would still do repeat colonoscopy in 5 yrs due to fair prep on the right side Above findings were reviewed with the patient and relevant handouts were provided if indicated.
--- NOTE | 2022-04-27 12:29 | ECG_ITS ---
Test Reason : PREOP Blood Pressure : / mmHG Vent. Rate : 065 BPM Atrial Rate : 065 BPM P-R Int : 170 ms QRS Dur : 094 ms QT Int : 376 ms P-R-T Axes : 054 003 049 degrees QTc Int : 391 ms Normal sinus rhythm Normal ECG When compared with ECG of 25-AUG-2021 08:18, No significant change was found Referred By: Tyler Calhoun Electronically Signed By:MARCOS ASHER
--- NOTE | 2022-04-27 12:51 | PC.NURSE ---
dr. marie and dr. buckley continually updated that pt unable to urinate for urine toxicology screen since arrival. dr. marie stated to started second bag of LR. pt still unable to urinate after a total of 1200 IV LR with many attempts. pt stated this is what happens to me when i need to give a urine sample. . dr. marie updated dr. quijano and dr. quijano stated that pt can have stat EKG and stat troponin at this time to be reviewed by anesthesia. both completed at this time.
--- NOTE | 2022-04-27 12:56 | PC.NURSE ---
pt no longer takes any medications for DM since having his gastric sleeve surgery. pt does not monitor BS at home.
[2022-04-27 13:12] LABS: Troponin-I High Sensitivity 4.2 ng/L (<3.5-35.0)
--- NOTE | 2022-04-27 13:16 | HO.ANESPROP2 ---
HPI - Anesthesia Eval Consult details Narrative: 51 M for colonoscopy [facility] Active Problems Active Problems: All Active Problems (Updated 04/21/22 @ 13:19 by Maggy Shell RN) Alcohol dependence (Acute) Hidradenitis axillaris (Acute) Abscess (Acute) Vitamin D deficiency (Acute) Drug abuse and dependence (Acute) Dyslipidemia (Acute) Right shoulder strain (Acute) Physical exam (Acute) Screening PSA (prostate specific antigen) (Acute) Screening for colon cancer (Acute) Mildly obese (Acute) Upper respiratory tract infection (Acute) Sebaceous cyst of scrotum (Acute) Smoker (Acute) Left shoulder pain (Acute) Impingement syndrome, shoulder, left (Acute) Hordeolum externum of upper eyelid (Acute) Alcohol dependence (Acute) S/P laparoscopic sleeve gastrectomy (Acute) Diabetes (Acute) Overweight (BMI 25.0-29.9) (Acute) Intestinal malabsorption following gastrectomy (Acute) Kidney disease (Acute) Bipolar 1 disorder (Acute) Past Medical History Medical History (Updated 04/21/22 @ 13:19 by Maggy Shell RN) Alcohol dependence Bipolar 1 disorder Diabetes Gout Heroin abuse Hyperlipidemia Hypertension Intestinal malabsorption following gastrectomy Kidney disease Obstructive sleep apnea Overweight (BMI 25.0-29.9) Varicose veins of left lower extremity Functional capacity: independent ambulation Family History Family History Father No problems noted. Mother HTN (hypertension) Brother No problems noted. Sister No problems noted. Family history of problems with anesthesia: No Surgical History Surgical History S/P laparoscopic sleeve gastrectomy History of Problems with Anesthesia: No Social History Social History Housing: Apartment Alcohol intake: former Patient Tobacco Use Status: Current everyday Tobacco user Tobacco use type: Cigarette Cigarettes Per Day: 25 Years Smoked: 38 e-Cigarette/Vaping Use: Never Used Substance Use Type: Crack/Cocaine Substance Use Type Other:: clean for 8 months as of 04/21/22 Are you DNR?: No Advance Directives: Yes Advance Directives Information Provided: Yes Advance Directives on File: Yes Advance Directives Date on File: 08/15/16 Recently lost weight without trying: No Eating poorly because of decreased appetite: No Nutrition Risks: No Nutritional Risk Current occupational status: disabled Cognitive needs: No Hearing needs: No Vision needs: No Meds Allergies Allergy/AdvReac Type Severity Reaction Status Date / Time lisinopril Allergy Severe Anaphylaxis Verified 04/27/22 10:38 clindamycin Allergy Mild Itching Verified 04/27/22 10:38 doxycycline Allergy Mild Shortness Verified 04/27/22 10:38 of Breath Active Medications: Current Medications Lactated Ringer's (Lr) 1,000 mls @ 100 mls/hr IVCONT .Q10H ARACELY Last Admin: 04/27/22 10:43 Dose: 100 mls/hr Ondansetron HCl (Ondansetron Hcl 4 Mg/2 Ml Vial) 4 mg IVPUSH ONCE PRN PRN Reason: Nausea and Vomiting Home Medications Medication Instructions Recorded Confirmed Last Taken Type bupropion HCl 200 mg tablet,12 hr 200 mg PO DAILY 06/04/20 04/21/22 Unknown History sustained-release topiramate 100 mg tablet 100 mg PO DAILY 12/12/21 04/21/22 Unknown History ziprasidone HCl 60 mg capsule 120 mg PO BEDTIME 12/12/21 04/21/22 Unknown History (Ashlyn) melatonin 10 mg capsule 10 mg PO BEDTIME PRN Insomnia 01/17/22 04/21/22 Unknown History Exam Exam Date and Time: April 27, 2022 1316 Height,Weight and Vital Signs: Height 5 ft 8 in Weight 87.997 kg Last Vital Signs Temp 97.6 F 04/27/22 10:50 Pulse 81 04/27/22 10:50 Resp 18 04/27/22 10:50 BP 113/73 04/27/22 10:50 Pulse Ox 96 04/27/22 10:50 O2 Del Method 04/27/22 10:50 Pertinent Lab Results Pertinent Lab Results: Laboratory Tests 04/27/22 12:44 Troponin I High Sens 4.2 Airway Mallampati Class: III TM Dist: >3cm Neck ROM: Full Loose/Missing/Broken Teeth: Yes (Chipped ) Assessment and Plan Assessment Anesthesia Assessment: Anesthesia Plan Discussed Final Anesthetic Review Family History of Problems with Anesthesia: No History of Problems with Anesthesia: No ASA Class: III and Emergency Final Preanesthetic Review: Meds/Allgs Chart Reviewed and Anes Risks/Benef Reviewed Patient Risk: Intermediate Procedure Risk: Intermediate Anesthetic Plan Anesthetic Plan: MAC: Disposition: Standard PACU
[2022-04-27] MEDS: Sodium Phosphate,Mono-Dibasic 133 ML ENEMA PR (13:26)
--- NOTE | 2022-04-27 13:42 | PC.NURSE ---
dr. buckley had ordered enemas for patient due to prema colored liquid results after drinking prep. then dr. buckley discussed with pt because patient was very upset of timeframe that he has been here. dr. buckley assessed and stated enema not needed now.
[2022-04-27 14:07] VITALS: BP 109/56; PULSE 78; RESP 16; TEMP 36.4; O2SAT 98
[2022-04-27 14:22] VITALS: BP 140/84; PULSE 69; RESP 16; TEMP 36.4; O2SAT 97
--- NOTE | 2022-04-27 15:12 | PC.NURSE ---
PATIENT GIVEN DISCHARGE INSTRUCTIONS, BUT DIDN'T WANT TO WAIT FOR HIS RIDE TO COME TO THE MAIN ENTRANCE. PT GOT UP AND LEFT ON HIS OWN.
== END 2022-04-27 15:13 | disposition home or self-care (01) ==
PROVIDERS: Anesthesiology; PCP Nurse Practitioner Family; Visit Provider Internal Medicine Gastroenterology
PROC: 0DJD8ZZ Inspection of Lower Intestinal Tract, Via Natural or Artificial Opening Endoscopic (ICD-10-PCS; CPT 45378; principal; 2022-04-27 11:50)
DX: Z12.11 Encounter for screening for malignant neoplasm of colon (principal); K62.1 Rectal polyp; K64.0 First degree hemorrhoids; G47.33 Obstructive sleep apnea (adult) (pediatric); F10.20 Alcohol dependence, uncomplicated; F11.10 Opioid abuse, uncomplicated; F14.90 Cocaine use, unspecified, uncomplicated; F31.9 Bipolar disorder, unspecified; M10.9 Gout, unspecified; I10 Essential (primary) hypertension; N28.9 Disorder of kidney and ureter, unspecified; I83.92 Asymptomatic varicose veins of left lower extremity; E78.5 Hyperlipidemia, unspecified; E11.9 Type 2 diabetes mellitus without complications; Z79.899 Other long term (current) drug therapy; Z98.84 Bariatric surgery status; F17.210 Nicotine dependence, cigarettes, uncomplicated; Z88.1 Allergy status to other antibiotic agents; Z88.8 Allergy status to other drugs, medicaments and biological substances
CPT/HCPCS: 45385; 45380; 36415; 84484; 88305; 93005

== ENCOUNTER → 2022-05-10 08:12 | Outpatient (BNVA) | payer OTHER, SELFPAY | PROVIDERS: PCP Nurse Practitioner Family; Visit Provider Nurse Practitioner Family | DX: K64.8 Other hemorrhoids (principal); K62.1 Rectal polyp; K59.04 Chronic idiopathic constipation; Z98.890 Other specified postprocedural states | CPT/HCPCS: 99212 ==

== ENCOUNTER 2022-08-12 09:34 | Outpatient (REF) | payer OTHER, SELFPAY ==
--- NOTE | ~2022-08-12 | XR_ITS ---
EXAMINATION: XR CHEST CLINICAL INFORMATION: Cough COMPARISON: None TECHNIQUE: 2 views of the chest were obtained. FINDINGS: Minor peribronchial thickening. Elevation left hemidiaphragm. Clips left upper quadrant. No significant abnormality is noted otherwise involving the heart, lungs, mediastinum, bony thorax or soft tissues. XR/XR chest 2V IMPRESSION: No focal infiltrate. Changes of mild bronchitis.
[2022-08-12 10:03] LABS: Binax Now Covid-19 Ag Negative (Negative)
[2022-08-12 10:04] LABS: Binax Internal Control QC Valid
[2022-08-12 11:42] LABS: Influenza A PCR NEGATIVE (Negative); Influenza B PCR NEGATIVE (Negative); Resp Syncy Virus RNA Qual PCR NEGATIVE (Negative); SARS COV2 PCR INHOUSE NEGATIVE (Negative)
== END 2022-08-12 09:35 | disposition home or self-care (01) ==
LOC: HO.HMGCX 09:34
PROVIDERS: PCP Nurse Practitioner Family; Visit Provider Physician Assistant Medical
DX: R05.9 Cough, unspecified (principal); Z20.822 Contact with and (suspected) exposure to COVID-19
CPT/HCPCS: 0241U; 71046; 87811; C9803

== ENCOUNTER → 2022-10-26 13:26 | Outpatient (BNVA) | payer OTHER, SELFPAY | PROVIDERS: PCP Nurse Practitioner Family; Visit Provider Physician Assistant | DX: E66.9 Obesity, unspecified (principal); F10.20 Alcohol dependence, uncomplicated; F31.9 Bipolar disorder, unspecified; Z98.84 Bariatric surgery status; Z68.30 Body mass index [BMI] 30.0-30.9, adult | CPT/HCPCS: 99212 ==

== ENCOUNTER → 2022-12-08 08:26 | Outpatient (BNVA) | payer OTHER, SELFPAY | PROVIDERS: PCP Nurse Practitioner Family; Referring Provider Nurse Practitioner Family; Visit Provider Dietitian, Registered | DX: E66.3 Overweight (principal); K90.49 Malabsorption due to intolerance, not elsewhere classified; F10.20 Alcohol dependence, uncomplicated; F11.20 Opioid dependence, uncomplicated; F17.210 Nicotine dependence, cigarettes, uncomplicated; Z68.29 Body mass index [BMI] 29.0-29.9, adult; Z90.3 Acquired absence of stomach [part of]; Z71.3 Dietary counseling and surveillance | CPT/HCPCS: 97803 ==

== ENCOUNTER 2023-06-02 07:06 | Outpatient (REF) | payer OTHER, SELFPAY | END 2023-06-02 07:07 | disposition home or self-care (01) | LOC: HO.LAB 07:06 | PROVIDERS: PCP Nurse Practitioner Family; Referring Provider Physician Assistant; Visit Provider Nurse Practitioner Family | DX: Z00.00 Encounter for general adult medical examination without abnormal findings (principal); E11.9 Type 2 diabetes mellitus without complications; E53.8 Deficiency of other specified B group vitamins; Z12.5 Encounter for screening for malignant neoplasm of prostate | CPT/HCPCS: 36415; 80053; 80061; 81001; 82043; 82570; 82607; 82746; 83036; 84153; 84443; 85025 ==

== ENCOUNTER 2023-06-04 08:34 | Outpatient (AMB) | payer OTHER, SELFPAY ==
[2023-06-04 08:57] VITALS: BP 132/70; PULSE 75; O2SAT 96; BMI 31.7
--- NOTE | 2023-06-04 08:57 | MHC.PC.OV ---
Vital Signs 06/04/23 08:57 Height 5 ft 8 in Weight 208 lb 6 oz BMI 31.7 BP 132/70 Blood Pressure Location Lt brachial Position Sitting Pulse 75 Pulse Source Pulse Oximeter Pulse Oximetry (%) 96 Oxygen Delivery Method Room Air Intake Visit Reasons: 6 Month follow up Allergies lisinopril Allergy (Severe, Verified 06/04/23 08:59) Anaphylaxis clindamycin Allergy (Mild, Verified 06/04/23 08:59) Itching doxycycline Allergy (Mild, Verified 06/04/23 08:59) Shortness of Breath Medication List - Last Reconciled 06/04/23 by JULIO Anderson bupropion HCl 200 mg PO DAILY cholecalciferol (vitamin D3) 25 mcg PO DAILY 90 days cyanocobalamin (vitamin B-12) 500 mcg PO DAILY multivitamin (Daily-Nella tablet) 1 tab PO DAILY topiramate 100 mg PO DAILY ziprasidone HCl (Geodon) 120 mg PO BEDTIME zolpidem 5 mg PO BEDTIME PRN Tobacco use date assessed: 06/04/23 Dental Screening Dental Screen Date: 06/04/23 Did you have a dental visit in the last 12 months?: Yes Did you have a dental problem in the last 6 months where you did not have access to dental care?: No Was dental information given to patient?: Patient has dentist HPI 6 Month follow up HPI Details Pt is a diabetic, last A1C was 5.5. Microalbumin is up to date. Denies polyuria, polydipsia, and neuropathy. Pt denies any signs and symptoms of hypoglycemia and does know how to correct it. Will start atorvastatin. Leukocytosis noted on recent labs. Will order chest XR and repeat CBC. Pt does smoke. Denies fever, chills, and excessive shortness of breath. Pt has a hx Of HS and has multiple cystic lesions to his bilat axillas. Will refer to general surgery. [facility] Medical History Diverticulosis Alcohol dependence Heroin abuse Overweight (BMI 25.0-29.9) Intestinal malabsorption following gastrectomy Varicose veins of left lower extremity Kidney disease Gout Obstructive sleep apnea Bipolar 1 disorder Hyperlipidemia Hypertension Diabetes Surgical History S/P laparoscopic sleeve gastrectomy Family History Father No problems noted. Mother HTN (hypertension) Brother No problems noted. Sister No problems noted. Social History Housing: Apartment Alcohol intake: former Patient Tobacco Use Status: Current everyday Tobacco user Tobacco use type: Cigarette Cigarette Packs Per Day: 1.5 Cigarettes Per Day: 25 Years Smoked: 38 e-Cigarette/Vaping Use: Never Used Second Hand Smoke Exposure: No Substance Use Type: Crack/Cocaine Advance Directives Date on File: 08/15/16 Current occupational status: disabled Cognitive needs: No Hearing needs: No Vision needs: No Questionnaire Thrive Questionnaire Date Thrive assessed: 11/30/22 FELIX-7 AMB Questionnaire FELIX-7 Date FELIX - 7 assessed: 11/30/22 Source: Developed by Drs. Herve Berg, Dina Segovia, Frederick Sandoval and colleagues, with an educational annelise from [employer] Review of Systems Const Reports as per HPI Physical exam (Primary Care) Vital Signs: Last Vital Signs Pulse 75 06/04/23 08:57 BP 132/70 06/04/23 08:57 Pulse Ox 96 06/04/23 08:57 Oxygen Delivery Method Room Air 06/04/23 08:57 BMI result Body Mass Index 31.7 Tobacco/Smoking Status: Tobacco use Status Tobacco use date assessed 06/04/23 06/04/23 09:02 Patient Tobacco Use Status Current everyday Tobacco 06/04/23 08:57 Tobacco use type Cigarette 06/04/23 08:57 e-Cigarette/Vaping Use Never Used 06/04/23 08:57 Thrive Assessment: Date of Thrive Assessment Date Thrive assessed 11/30/22 06/04/23 08:57 Const General: cooperative Nutritional Appearance: obese Orientation/consciousness: patient oriented x3 Resp Effort & Inspection: normal respiratory effort Auscultation: clear to auscultation bilaterally Cardio Rate: regular rate Rhythm: regular rhythm Heart sounds: S1 normal heart sound present and S2 normal heart sound present Skin Other: bandaids noted to bilat axillas, cystic lesions and scarring noted Neuro General: patient oriented x3 Extrem Right lower extremity: no edema Left lower extremity: no edema Psych Appearance: grossly normal Mental Status: mental status grossly normal Speech and movement: Normal speech and movement present Affect: normal affect Attitude: cooperative Thought process: Normal thought process present Thought content: Normal thought content present Insight: Good insight present (Psych) Judgement: Good judgement present (Psych) Assessment and Plan Assessment & Plan (1) Leukocytosis: Code(s): D72.829 - Elevated white blood cell count, unspecified Plan: Chest XR and CBC ordered (2) Hidradenitis suppurativa of multiple sites: Code(s): L73.2 - Hidradenitis suppurativa Plan: Referred to general surgery Plan The patient agreed to the use of a medical writer for this encounter. Scribed for JULIO Garland by Linda Orozco medical writer, on 06/04/2023 at 09:10 EST Orders: Orders XR chest 2V Today D72.829 - Elevated white blood cell count, unspecified Complete Blood Count Auto Diff Today D72.829 - Elevated white blood cell count, unspecified Referrals General Surgery Referral L73.2 - Hidradenitis suppurativa Medications: New nicotine 1 patch transdermal DAILY 28 ea 0RF 28 days amoxicillin-pot clavulanate 875-125 mg 1 tab PO BID 20 tabs 0RF 10 days atorvastatin 10 mg PO BEDTIME 90 tabs 0RF 90 days nicotine (polacrilex) cinnamon 4 mg buccal Q2H 100 ea 0RF Refilled cholecalciferol (vitamin D3) 25 mcg PO DAILY 90 caps 2RF 90 days cyanocobalamin (vitamin B-12) 500 mcg PO DAILY 30 tabs 11RF multivitamin (Daily-Nella tablet) 1 tab PO DAILY 30 tabs 11RF Coding Level of Care Code Est Pt Level 3 (25471) Diagnoses Leukocytosis D72.829 Hidradenitis suppurativa of multiple sites L73.2
== END 2023-06-04 09:24 | disposition home or self-care (01) ==
PROVIDERS: Visit Provider Nurse Practitioner Family
DX: D72.829 Elevated white blood cell count, unspecified (principal); L73.2 Hidradenitis suppurativa
CPT/HCPCS: 99213

== ENCOUNTER 2023-06-04 09:26 | Outpatient (REF) | payer OTHER, SELFPAY | END 2023-06-04 09:27 | disposition home or self-care (01) | LOC: HO.HMGCX 09:26 | PROVIDERS: PCP Nurse Practitioner Family; Visit Provider Nurse Practitioner Family | DX: D72.829 Elevated white blood cell count, unspecified (principal) | CPT/HCPCS: 36415; 71046; 85025 ==

== ENCOUNTER 2023-09-11 06:02 | Outpatient (REF) | payer MEDICARE, SELFPAY ==
[2023-09-11 06:20] LABS: MANUAL DIFF FLAG NO
[2023-09-11 07:30] LABS: Basophils Absolute Auto 0.1 X10*3/uL (0.0-0.2); Basophils Percent Auto 0.4 % (0-2); Eosinophils Absolute Auto 0.3 X10*3/uL (0.0-0.4); Eosinophils Percent Auto 2.3 % (0-4); Hematocrit 52.6 % (42.0-52.0); Hemoglobin 17.2 g/dl (14.0-18.0); Imm Gran Abs Auto 0.07 X10*3/uL (0.00-0.03); Imm Gran Pct Auto 0.6 % (0.0-0.4); Lymphocytes Absolute Auto 2.3 X10*3/uL (1.2-4.9); Lymphocytes Percent Auto 18.9 % (20-40); Mean Corpuscular HGB Conc 32.7 g/dl (31.0-36.0); Mean Corpuscular Hemoglobin 29.3 pg (27.0-33.0); Mean Corpuscular Volume 89.6 fL (80.0-98.0); Mean Platelet Volume 10.9 fL (9.4-12.4); Monocytes Absolute Auto 0.9 X10*3/uL (0.1-1.2); Monocytes Percent Auto 7.1 % (2-11); Neutrophils Absolute Auto 8.7 x10*3/uL (2.0-8.3); Neutrophils Percent Auto 70.7 % (45-73); Platelet Count 256 X10*3/uL (160-400); Red Blood Count 5.87 X10*6/uL (4.60-5.80); Red Cell Distribution Width 13.2 % (11.0-16.0); White Blood Count 12.4 X10*3/uL (4.8-10.8)
[2023-09-11 07:31] LABS: Appearance Urine Clear; Color Urine Yellow; Glucose Urine UA Negative (Negative); Leukocyte Esterase Urine Negative (Negative); Nitrite Urine Negative (Negative); Urine Blood Negative (Negative); Urine Ketones Negative (Negative); Urine Protein Negative (Neg-Trace)
[2023-09-11 08:00] LABS: Creatinine Urine 65.15 mg/dL; Microalbum/Creatinine Ratio Ur 13.8 ug/mg cr (<30)
[2023-09-11 08:09] LABS: Alanine Aminotransferase 12 U/L (0-40); Albumin Level 4.3 g/dL (3.5-5.0); Alkaline Phosphatase 52 U/L (39-117); Anion Gap 14 (12-20); Aspartate Amino Transferase 13 U/L (5-37); Bilirubin Total 0.4 mg/dL (0.0-1.0); Blood Urea Nitrogen 19 mg/dL (9-16); Calcium 9.5 mg/dL (8.4-10.2); Carbon Dioxide 27 mmol/L (22-29); Chloride 104 mmol/L (96-108); Cholesterol 162 mg/dL (<200); Estimated Glomerular Filt Rate > 60; Glucose Fasting 101 mg/dL (60-99); HDL Cholesterol 46 mg/dL (>40); LDL Cholesterol Calculated 82 mg/dL (<100); Potassium 4.1 mmol/L (3.3-5.1); Sodium 141 mmol/L (135-145); Total Protein 7.7 g/dL (6.5-8.0); Triglycerides 171 mg/dL (<150)
[2023-09-11 08:17] LABS: TSH reflex Free T4 1.77 uIU/mL (0.32-4.0)
[2023-09-11 08:33] LABS: Folate 6.9 ng/mL (> or = 4.0); Vitamin B12 731 pg/mL (200-900)
== END 2023-09-11 06:03 | disposition home or self-care (01) ==
LOC: HO.LAB 06:02
PROVIDERS: PCP Nurse Practitioner Family; Visit Provider Nurse Practitioner Family
DX: Z00.00 Encounter for general adult medical examination without abnormal findings (principal); E53.8 Deficiency of other specified B group vitamins; E78.5 Hyperlipidemia, unspecified; F17.200 Nicotine dependence, unspecified, uncomplicated; E11.9 Type 2 diabetes mellitus without complications; Z12.5 Encounter for screening for malignant neoplasm of prostate
CPT/HCPCS: 36415; 80053; 80061; 81003; 82043; 82570; 82607; 82746; 84153; 84443; 85025

== ENCOUNTER 2023-09-12 08:42 | Outpatient (AMB) | payer MEDICARE, SELFPAY ==
--- NOTE | 2023-09-12 08:45 | A.OFFPC_ITS ---
Vital Signs 09/12/23 08:49 09/12/23 09:19 Height 5 ft 8 in Weight 200 lb BMI 30.4 BP 126/90 H 112/70 Blood Pressure Location Lt brachial Lt brachial Position Sitting Sitting Pulse 88 Pulse Source Pulse Oximeter Pulse Oximetry (%) 98 Oxygen Delivery Method Room Air Intake Visit Reasons: 3 Month follow up Intake Note: Patient here for diabetes F/U. Allergies lisinopril Allergy (Severe, Verified 09/12/23 08:50) Anaphylaxis clindamycin Allergy (Mild, Verified 09/12/23 08:50) Itching doxycycline Allergy (Mild, Verified 09/12/23 08:50) Shortness of Breath Tobacco use date assessed: 09/12/23 Dental Screening Dental Screen Date: 09/12/23 Did you have a dental visit in the last 12 months?: Yes Did you have a dental problem in the last 6 months where you did not have access to dental care?: No Was dental information given to patient?: Patient has dentist HPI 3 Month follow up HPI Details Pt is a diabetic, on a statin. A1C in office today is 6.3. Microalbumin is up to date. Denies polyuria, polydipsia, and neuropathy. Pt denies any signs and symptoms of hypoglycemia and does know how to correct it. Pt has been a PPD smoker since age 13. Will refer for low-dose CTs. Pt's WBC count was elevated. He has a hx of HS and reports current lesions. Will send bactrim. Denies fevers, chills, dizziness, blurred vision. [facility] Medical History Diverticulosis Alcohol dependence Heroin abuse Overweight (BMI 25.0-29.9) Intestinal malabsorption following gastrectomy Varicose veins of left lower extremity Kidney disease Gout Obstructive sleep apnea Bipolar 1 disorder Hyperlipidemia Hypertension Diabetes Surgical History S/P laparoscopic sleeve gastrectomy Family History Father No problems noted. Mother HTN (hypertension) Brother No problems noted. Sister No problems noted. Social History Housing: Apartment Alcohol intake: former Patient Tobacco Use Status: Current everyday Tobacco user Tobacco use type: Cigarette Cigarette Packs Per Day: 1.5 Cigarettes Per Day: 25 Years Smoked: 38 e-Cigarette/Vaping Use: Never Used Second Hand Smoke Exposure: No Substance Use Type: Crack/Cocaine Advance Directives Date on File: 08/15/16 Current occupational status: disabled Cognitive needs: No Hearing needs: No Vision needs: No Questionnaire PHQ-9 Over the last 2 weeks, how often have you been bothered by any of the following problems? 35911 - PHQ-9 Billing: Patient declined-do not bill Source: Developed by Drs. Herve Berg, Dina Segovia, Frederick Sandoval and colleagues, with an educational annelise from [employer]. Thrive Questionnaire Date Thrive assessed: 09/12/23 What is your living situation today?: I choose not to answer this question Within the past 12 months, did the food you bought not last and you didn't have the money to get more?: I choose not to answer this question Within the past 12 months, did you worry whether your food would run out before you got money to buy more?: I choose not to answer this question Do you have trouble paying for medicines?: I choose not to answer this question Do you have trouble getting transportation to medical appointments?: I choose not to answer this question Do you have trouble paying your heating and electricity bill?: I choose not to answer this question Do you have trouble taking care of your child, family member or friend?: I choose not to answer this question Do you have trouble with day-to-day activities such as bathing, preparing meals, shopping, managing finances, etc.?: I choose not to answer this question Are you currently unemployed and looking for a job?: I choose not to answer this question Are you interested in more education?: I choose not to answer this question AUDIT C Alcohol Use Questionnaire (AUDIT-C) 1. How often do you have a drink containing alcohol?: Monthly or less 3. How often do you have six or more drinks on one occasion?: Never Total Score: 1 Score Reviewed/Action Taken: No FELIX-7 AMB Questionnaire FELIX-7 Date FELIX - 7 assessed: 09/12/23 Source: Developed by Drs. Herve Berg, Dina Segovia, Frederick Sandoval and colleagues, with an educational annelise from [employer]. FELIX-7 Assessment Billing FELIX-7 Assessment Tool: pt declined-do not bill Review of Systems Const Reports as per HPI Physical exam (Primary Care) Vital Signs: Last Vital Signs Pulse 88 09/12/23 08:49 BP 126/90 H 09/12/23 08:49 Pulse Ox 98 09/12/23 08:49 Oxygen Delivery Method Room Air 09/12/23 08:49 BMI result Body Mass Index 30.4 Tobacco/Smoking Status: Tobacco use Status Tobacco use date assessed 09/12/23 09/12/23 08:53 Patient Tobacco Use Status Current everyday Tobacco 09/12/23 08:45 Tobacco use type Cigarette 09/12/23 08:45 e-Cigarette/Vaping Use Never Used 09/12/23 08:45 Thrive Assessment: Date of Thrive Assessment Date Thrive assessed 09/12/23 09/12/23 09:00 Const General: cooperative Orientation/consciousness: patient oriented x3 Resp Effort & Inspection: normal respiratory effort Auscultation: clear to auscultation bilaterally Cardio Rate: regular rate Rhythm: regular rhythm Heart sounds: S1 normal heart sound present and S2 normal heart sound present Neuro General: patient oriented x3 Extrem Other: refused foot exam Psych Appearance: grossly normal Mental Status: mental status grossly normal Speech and movement: Normal speech and movement present Affect: normal affect Attitude: cooperative Thought process: Normal thought process present Thought content: Normal thought content present Insight: Good insight present (Psych) Judgement: Good judgement present (Psych) Results AMB Hemoglobin A1c AMB Hemoglobin A1c 6.3 % Last Edit by LIYAH Phillips on 09/12/23 09 :11 Results Reviewed Results Reviewed: Laboratory Last Values Hgb A1c (Clinic) 6.3 % (4.0-6.0) H 09/12/23 09:10 Assessment and Plan Assessment & Plan (1) Smoker: Code(s): F17.200 - Nicotine dependence, unspecified, uncomplicated Plan: referred to thoracics (2) Hidradenitis suppurativa of multiple sites: Code(s): L73.2 - Hidradenitis suppurativa Plan: starting bactrim, redrawing cbc (3) B12 deficiency: Code(s): E53.8 - Deficiency of other specified B group vitamins (4) Diabetes: Comment: off Rx since weight loss surgery Code(s): E11.9 - Type 2 diabetes mellitus without complications Plan The patient agreed to the use of a special forces medical sergeant for this encounter. Scribed for JULIO Garland by Linda Orozco special forces medical sergeant, on 09/12/2023 at 09:05 EST. Orders: Orders AMB Hemoglobin A1c Today E11.9 - Type 2 diabetes mellitus without complications Comprehensive Met. Panel Today L73.2 - Hidradenitis suppurativa Complete Blood Count Auto Diff Today L73.2 - Hidradenitis suppurativa Referrals Thoracic Surgery Referral F17.200 - Nicotine dependence, unspecified, uncomplicated Medications: New sulfamethoxazole-trimethoprim 800-160 mg (Bactrim DS) 1 tab PO BID 4 days 8 tabs 0RF Refilled cholecalciferol (vitamin D3) 25 mcg PO DAILY 90 days 90 caps 2RF cyanocobalamin (vitamin B-12) 500 mcg PO DAILY 90 tabs 2RF multivitamin (Daily-Nella tablet) 1 tab PO DAILY 90 tabs 2RF Coding Level of Care Code Est Pt Level 3 (69435) Diagnoses Smoker F17.200 Hidradenitis suppurativa of multiple sites L73.2 B12 deficiency E53.8 Diabetes E11.9
[2023-09-12 08:49] VITALS: BP 126/90; PULSE 88; O2SAT 98; BMI 30.4
[2023-09-12 09:19] VITALS: BP 112/70
== END 2023-09-12 09:38 | disposition home or self-care (01) ==
PROVIDERS: PCP Nurse Practitioner Family; Visit Provider Nurse Practitioner Family
DX: F17.200 Nicotine dependence, unspecified, uncomplicated (principal); L73.2 Hidradenitis suppurativa; E53.8 Deficiency of other specified B group vitamins; E11.9 Type 2 diabetes mellitus without complications
CPT/HCPCS: 83036; 99213

== ENCOUNTER 2023-11-02 08:27 | Outpatient (AMB) | payer OTHER, SELFPAY ==
--- NOTE | 2023-11-02 08:33 | A.OFFVIS_ITS ---
Intake VS Expanded 11/02/23 08:58 BP 129/82 Blood Pressure Location Rt brachial Blood Pressure Position Sitting Pulse 92 Pulse Source Pulse Oximeter Temp 96.1 F L Temperature Source Tympanic Pulse Oximetry 97 Oxygen Delivery Method Room Air Height 5 ft 8 in Weight 197 lb 12.8 oz BMI 30.1 Body Fat % 26.3 Body Fat Mass 52.0 Fat Free Mass 145.8 Visceral Fat Rating 13.0 Body Water % 52.1 Body Water Mass 103.0 Muscle Mass/Score 138.4 Basal Metabolic Rate/Score 1,930 Intake Visit Reasons: (OV) PO LSG 10/26/18 Allergies lisinopril Allergy (Severe, Verified 11/02/23 08:37) Anaphylaxis clindamycin Allergy (Mild, Verified 11/02/23 08:37) Itching doxycycline Allergy (Mild, Verified 11/02/23 08:37) Shortness of Breath Medication List - Last Reconciled 11/02/23 by Deepali Dutton PA-C atorvastatin 10 mg PO BEDTIME 90 days bupropion HCl 200 mg PO DAILY cholecalciferol (vitamin D3) 25 mcg PO DAILY 90 days clonidine HCl 0.1 mg PO TID 30 days cyanocobalamin (vitamin B-12) 500 mcg PO DAILY multivitamin (Daily-Nella tablet) 1 tab PO DAILY topiramate 100 mg PO DAILY ziprasidone HCl (Geodon) 120 mg PO BEDTIME zolpidem 5 mg PO BEDTIME PRN HPI HPI Comments History of Present Illness Details Pt is now 5+ years s/p LSG, [employer]ING [employer] weight of 307.6 lbs. Seen last year at 201.4 lbs with >1 year of sobriety from ETOH dependence. Weight is stable but still in obese category. Had relapse of ETOH and crack and now 2 months sober again. Post op labs done August 2023 except Vit D and B12 - which I have reordered today. Hgb A1C - 6.3 in August. Meal plan - needs to get 85-90 grams per day 7am - donut and coffee for breakfast 10:30 am - hot dog or sandwich with pota to chips - may have leftovers 5-7 pm - roast, potatoes and vegetable snacking on sweets during 3 AA meetings per day. Coffee - at least 10 cups per day - no sugar Smoking - 1.5 - 2 ppd. breakfast protein bar or 2 eggs Exercise - none, will start exercise at [facility] in November. Post op complications: =none KANDICE: resolved DM: resolved, but now A1C is elevated again HTN: resolved Hyperlipidemia: still on meds GERD: 0, Satisfaction with present condition - satisfied [facility] Medical History Diverticulosis Alcohol dependence Heroin abuse Overweight (BMI 25.0-29.9) Intestinal malabsorption following gastrectomy Varicose veins of left lower extremity Kidney disease Gout Obstructive sleep apnea Bipolar 1 disorder Hyperlipidemia Hypertension Diabetes Surgical History S/P laparoscopic sleeve gastrectomy Family History Father No problems noted. Mother HTN (hypertension) Brother No problems noted. Sister No problems noted. Social History Housing: Apartment Alcohol intake: former Patient Tobacco Use Status: Current everyday Tobacco user Tobacco use type: Cigarette Cigarette Packs Per Day: 1.5 Cigarettes Per Day: 25 Years Smoked: 38 e-Cigarette/Vaping Use: Never Used Second Hand Smoke Exposure: No Substance Use Type: Crack/Cocaine Advance Directives Date on File: 08/15/16 Current occupational status: disabled Cognitive needs: No Hearing needs: No Vision needs: No Physical Exam GI Inspection: Yes incision (all incisions completely healed) Palpation (GI): Soft to palpation, nontender, no guarding, no hernias and no masses Assessment & Plan Assessment & Plan (1) Mildly obese: Code(s): E66.9 - Obesity, unspecified Plan: Now 5 years post op with recent ETOH relapse and elevated A1C. Pt understands that to keep diabetes at bay he must not drink ETOH and stop donuts and sweets at AA meetings. He also knows that he needs to restart exercise and get enough protien per day. meal plan - Stop potato chips Have protein at breakfast - Premeir protein cereal - serving size and 1/2 c berries lunch - he wants a protein shake dinner - same - protien, veg, 1/2 c crabs will bring protein bars cuts into small pieces with him to AA meeting if he is tempted to eat. Exercise - MUST start walking 30 minutes per day - for mental relaxation as well as physical exercise. Will get Vit D and B12 drawn today Next appt 1 year. Patient is not considered stable at this time. I spent 30 minutes in total with patient reviewing/updating records, examining the patient and counseling the patient on weight management as detailed above. (2) S/P laparoscopic sleeve gastrectomy: Code(s): Z98.84 - Bariatric surgery status Plan: see above (3) Alcohol dependence: Comment: 04/21/22-currently going to [facility] He is getting monthly Vivitrol-has been doing well Code(s): F10.20 - Alcohol dependence, uncomplicated Qualifiers: Substance use status: uncomplicated Qualified Code(s): F10.20 - Alcohol dependence, uncomplicated (4) Nicotine dependence, cigarettes, uncomplicated: Code(s): F17.210 - Nicotine dependence, cigarettes, uncomplicated Plan: States will discuss again with PCP Plan see above Orders: Orders Vitamin D 25-OH Total Today E55.9 - Vitamin D deficiency, unspecified, Z98.84 - Bariatric surgery status Vitamin B12 and Folate Today Z98.84 - Bariatric surgery status Coding Level of Care Code Est Pt Level 4 (49907) Diagnoses Mildly obese E66.9 S/P laparoscopic sleeve gastrectomy Z98.84 Alcohol dependence F10.20 Substance use status: uncomplicated Nicotine dependence, cigarettes, uncomplicated F17.210
[2023-11-02 08:58] VITALS: BP 129/82; PULSE 92; TEMP 35.6; O2SAT 97; BMI 30.1
== END 2023-11-02 10:33 | disposition home or self-care (01) ==
PROVIDERS: Visit Provider Physician Assistant
DX: E66.9 Obesity, unspecified (principal); Z98.84 Bariatric surgery status; F10.20 Alcohol dependence, uncomplicated; F17.210 Nicotine dependence, cigarettes, uncomplicated
CPT/HCPCS: 99214

== ENCOUNTER 2023-11-02 08:27 | Outpatient (REF) | payer OTHER, SELFPAY ==
[2023-11-02 11:41] LABS: Vitamin D 25-OH Total 28.6 ng/mL (>30)
[2023-11-02 11:54] LABS: Folate 5.2 ng/mL (> or = 4.0); Vitamin B12 747 pg/mL (200-900)
== END 2023-11-02 08:28 | disposition home or self-care (01) ==
LOC: HO.LAB 08:27
PROVIDERS: PCP Nurse Practitioner Family; Visit Provider Physician Assistant
DX: E55.9 Vitamin D deficiency, unspecified (principal); E66.9 Obesity, unspecified; Z71.3 Dietary counseling and surveillance; Z98.84 Bariatric surgery status; Z79.899 Other long term (current) drug therapy
CPT/HCPCS: 36415; 82306; 82607; 82746; 99212

== ENCOUNTER 2023-12-14 09:39 | Outpatient (AMB) | payer OTHER, SELFPAY ==
--- NOTE | 2023-12-14 07:56 | A.OFFVIS_ITS ---
Intake Visit Reasons: Current Smoker Allergies lisinopril Allergy (Severe, Verified 11/02/23 08:37) Anaphylaxis clindamycin Allergy (Mild, Verified 11/02/23 08:37) Itching doxycycline Allergy (Mild, Verified 11/02/23 08:37) Shortness of Breath HPI HPI Current Smoker: Details: Initial visit for this 53yo smoker with a 40+PYH. Patient has been smoking since age 13 for 40 years at 1ppd. Max 2ppd. . Denies marijuana use. Reports social second hand smoke exposure. Denies exposure to chemicals or substances like asbestos. . Denies known family history of lung cancer. Denies personal history of cancers. Denies chest CT in last year. . Denies recent travel outside the [place]. Denies recent respiratory illness or recent hospitalization for respiratory issues. Denies testing positive for COVID. Admits receiving COVID Vaccine. x 2. . Reports chronic cough that is progressing a little. Wants to see environmental protection specialist about lung function. Denies fever, chills, new/worsening cough, hemoptysis, hoarseness or dysphagia. Denies significant chest pain, significant dyspnea or unintentional weight loss. Patient Lung Cancer Screening Questionnaire reviewed with patient by provider. . Shared Decision Making Completed. Patient meets criteria. Discussed in detail with patient, the risk vs benefit of LDCT screening. Patient consents to proceed with scan. Discussed smoking cessation. Plans to quit as will be getting new apartment. Wants to do on own. [facility] Medical History (Updated 12/11/23 @ 11:36 by Radha Vergara PA-C) Nicotine dependence, cigarettes, uncomplicated Diverticulosis Alcohol dependence Heroin abuse Overweight (BMI 25.0-29.9) Intestinal malabsorption following gastrectomy Varicose veins of left lower extremity Kidney disease Gout Obstructive sleep apnea Bipolar 1 disorder Hyperlipidemia Hypertension Diabetes Surgical History (Updated 12/11/23 @ 11:36 by Radha Vergara PA-C) History of sleeve gastrectomy History of colonoscopy Family History Father No problems noted. Mother HTN (hypertension) Brother No problems noted. Sister No problems noted. Social History Housing: Apartment Alcohol intake: former Patient Tobacco Use Status: Current everyday Tobacco user Tobacco use type: Cigarette Cigarette Packs Per Day: 1.5 Cigarettes Per Day: 25 Years Smoked: 38 e-Cigarette/Vaping Use: Never Used Second Hand Smoke Exposure: No Substance Use Type: Crack/Cocaine Advance Directives Date on File: 08/15/16 Current occupational status: disabled Cognitive needs: No Hearing needs: No Vision needs: No Assessment & Plan Assessment & Plan (1) Nicotine dependence, cigarettes, uncomplicated: Comment: (current smoker, onset 13yo, 1ppd x 40yrs, 40pyh) Code(s): F17.210 - Nicotine dependence, cigarettes, uncomplicated Category: Medical Plan: - SDM visit completed today in office. - Patient meets criteria for LDCT for lung cancer screening purposes and is asymptomatic. - Smoking cessation counseling offered. Patients can always call [phone]. - Will arrange for a LDCT scan of the chest for screening purposes at [facility]. - Risks, benefits, and alternatives were discussed in detail and the patient agrees to proceed. - Risks discussed include but are not limited to: radiation exposure, anxiety during testing and while awaiting results, false negatives, false positives and possibility of additional intervention such as further imaging or surgical procedures for benign disease. - Benefits are obviously detection of lung cancer at an early stage which can lead to improved outcomes. - Discussed the importance of screening program compliance with adherence to yearly LDCT scan as scheduled - or sooner interval scans for personalized screening regimen. - Discussed follow up plan. Our office will send a letter discussing results and if needed set up phone call and office visit based on CT findings. - Patient educated on results categorization and the management decisions for suspicious findings potentially found on the screening LDCT scan. Any patient with a Lung RADS score of 3 or 4 will be reviewed by a multidisciplinary team at [facility] to form a plan of action in regards to scan findings. - If further work up is warranted for a suspicious lung finding this will be followed by the Lung Cancer Screening program in conjunction with the Thoracic Surgery Department at [facility]. - A copy of the office note and LDCT will be sent to the patient's PCP - as well as documentation on any associated further plans of care. - Incidental findings on LDCT are the PCP's responsibility. These findings are indicated with an S finding on the LDCT Assessment. A note discussing the findings will be sent to the PCP who is then responsible for further management. - All questions answered.?
== END 2023-12-14 10:16 | disposition home or self-care (01) ==
PROVIDERS: PCP Nurse Practitioner Family; Referring Provider Nurse Practitioner Family; Visit Provider Physician Assistant Medical
DX: F17.210 Nicotine dependence, cigarettes, uncomplicated (principal)
CPT/HCPCS: G0296

== ENCOUNTER 2023-12-14 10:00 | Outpatient (REF) | payer OTHER, SELFPAY ==
--- NOTE | ~2023-12-14 | CT_ITS ---
EXAMINATION: CT CHEST SCREENING CLINICAL INFORMATION: Nicotine dependence, cigarettes, uncomplicated. The patient is a current smoker with a 38 pack-year history of smoking. COMPARISON: Chest x-ray 06/04/2023. TECHNIQUE: Multidetector volumetric CT imaging of the chest is performed on a Siemens SOMATOM Definition scanner without contrast using low dose technique. Additional 2D coronal and sagittal reformatted images and axial 3D maximum intensity projection (MIP) images are generated on the CT workstation. This CT examination was performed using dose optimization techniques as appropriate, variously including the following: *Automated exposure control *Adjustment of mA and/or kV according to patient size (this includes techniques or standardized protocols for targeted exams where dose is matched to indication/reason for exam; i.e. extremities or head) *Use of iterative reconstruction technique DLP: 60 mGy-cm FINDINGS: LUNGS: Mild emphysematous changes are seen. Bronchial wall thickening is present. There is some subpleural reticulation seen most prominent in the left upper lobe anteriorly and in both lower lobes. Some scattered tiny micronodules are seen most calcified (see andrade images). No suspicious lung mass is seen to suggest malignancy. MEDIASTINUM: 1.2 cm precarinal lymph node is seen. No gross mediastinal or hilar lymphadenopathy. Ascending aorta dilated at 4.1 cm in maximal dimension perpendicular to a center line. Heart size normal. CORONARY ARTERY CALCIFICATION: Mild. PLEURA: There is no pleural effusion. No pleural mass or thickening. AXILLA: No lymphadenopathy. UPPER ABDOMEN: Prior gastric sleeve. OSSEOUS STRUCTURES: Mild degenerative changes in the spine. No bony destructive lesions. CT/CT lung screening IMPRESSION: No concerning finding for malignancy. There is mild aneurysmal dilatation of the ascending thoracic aorta. For a patient of 53 years of age, maximal dimension should be 4.0 cm. ASSESSMENT: Lung-RADS category 1: Negative RECOMMENDATION: Routine annual low-dose CT screening in 12 months. Vascular surgery consultation for ascending aortic aneurysm. Normal aortic diameters (in millimeters) Ascending aorta: 31+0.16 x age. Descending aorta: 21+0.16 x age. Reference: [employer] Cardiovascular J 2005; 40 (3): 175-178
== END 2023-12-14 10:01 | disposition home or self-care (01) ==
LOC: HO.CT 10:00
PROVIDERS: PCP Nurse Practitioner Family; Visit Provider Nurse Practitioner Family
DX: Z12.2 Encounter for screening for malignant neoplasm of respiratory organs (principal); F17.210 Nicotine dependence, cigarettes, uncomplicated
CPT/HCPCS: 71271; G0296

== ENCOUNTER 2024-03-25 10:52 | Outpatient (AMB) | payer OTHER, SELFPAY ==
[2024-03-25 11:02] VITALS: BP 116/68; PULSE 90; BMI 31.2
--- NOTE | 2024-03-25 11:02 | MHC.OFFVIS ---
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/?Thoracic aortic ectasia Allergies lisinopril Allergy (Severe, Verified 11/02/23 08:37) Anaphylaxis clindamycin Allergy (Mild, Verified 11/02/23 08:37) Itching doxycycline Allergy (Mild, Verified 11/02/23 08:37) Shortness of Breath Medication List - Last Reconciled 03/25/24 by Isrrael Adkins MD atorvastatin 10 mg PO BEDTIME 90 days bupropion HCl SR 300 mg PO DAILY cholecalciferol (vitamin D3) 25 mcg PO DAILY 90 days clonidine HCl 0.1 mg PO TID cyanocobalamin (vitamin B-12) 500 mcg PO DAILY multivitamin (Daily-Nella tablet) 1 tab PO DAILY nicotine (polacrilex) 4 mg buccal Q2H topiramate 100 mg PO DAILY ziprasidone HCl (Geodon) 120 mg PO BEDTIME zolpidem 10 mg PO BEDTIME PRN HPI Comments Details: Harlan here for consultation regarding thoracic aortic aneurysm. Patient himself does not have any known cardiac issues like coronary disease myocardial infarction. History of alcohol as well as substance abuse. Last about 7 months ago. Also chronic smoker and smokes heavily. He states he is trying to quit. Within limits of his activity, he does not have any complaints like chest pain or shortness of breath or in fact anything cardiac sounding. [facility] Medical History (Updated 03/25/24 @ 11:19 by Isrrael Adkins MD) Retinopathy Nicotine dependence, cigarettes, uncomplicated Diverticulosis Alcohol dependence Heroin abuse Overweight (BMI 25.0-29.9) Intestinal malabsorption following gastrectomy Varicose veins of left lower extremity Kidney disease Gout Obstructive sleep apnea Bipolar 1 disorder Hyperlipidemia Hypertension Diabetes Surgical History (Updated 12/11/23 @ 11:36 by Radha Vergara PA-C) History of sleeve gastrectomy History of colonoscopy Family History Father No problems noted. Mother HTN (hypertension) Brother No problems noted. Sister No problems noted. Social History Housing: Apartment Alcohol intake: former Patient Tobacco Use Status: Current everyday Tobacco user Tobacco use type: Cigarette Cigarette Packs Per Day: 1.5 Cigarettes Per Day: 25 Years Smoked: 38 e-Cigarette/Vaping Use: Never Used Second Hand Smoke Exposure: No Substance Use Type: Crack/Cocaine Advance Directives Date on File: 08/15/16 Current occupational status: disabled Cognitive needs: No Hearing needs: No Vision needs: No Review of Systems Const Denies weakness ENT Denies dizziness Card Denies chest pain, Denies chest pain with activity, Denies syncope, Denies rapid heart rate, Denies pedal edema, Denies edema, Denies leg edema, Denies lightheadedness, Denies palpitations, Denies dyspnea, Denies dyspnea on exertion and Denies orthopnea Resp Denies cough, Denies dyspnea and Denies dyspnea on exertion GI Denies hematochezia and Denies change in stool character Musc Denies abnormal gait, Denies muscle cramps, Denies muscle weakness, Denies numbness, Denies radiating pain into limb and Denies tingling Neuro Denies abnormal gait, Denies dizziness, Denies syncope, Denies numbness, Denies tingling and Denies weakness Endo Denies palpitations Physical Exam Vital Signs: Last Vital Signs Pulse 90 03/25/24 11:02 BP 116/68 03/25/24 11:02 BMI result Body Mass Index 31.2 Const General: comfortable and no acute distress Orientation/consciousness: patient oriented x3 HEENT Other: Unremarkable Head: Yes normal to inspection Neck Neck: Yes normal visual inspection Chest Chest palpation & inspection: normal inspection of the chest Resp Auscultation: clear to auscultation bilaterally Cardio Palpation: normal PMI Heart sounds: S1 normal heart sound present, S2 normal heart sound present, no gallops, no murmurs and no rubs GI Palpation (GI): Soft to palpation Back/Spine/Pelvis Other: unremarkable Skin General skin exam: no rashes or lesions noted Neuro General: patient oriented x3 Extrem General: Yes normal to inspection Psych Mental Status: mental status grossly normal Office Procedures EKG Details: EKG with sinus rhythm at 90/Min; no significant ST-T changes and otherwise unremarkable. [place] [id number], Complete Assessment & Plan Assessment & Plan (1) Ascending aorta dilatation: Code(s): I77.810 - Thoracic aortic ectasia Category: Medical Plan: In the lung CT scan, ascending aortic size 4.1 cm. Findings discussed with patient. Probably related to his history of smoking. Will need to be followed periodically. Recheck echocardiogram in 6 months. Main recommendation will be to still stop smoking and keep blood pressure optimal. (2) Atherosclerotic cardiovascular disease: Code(s): I25.10 - Atherosclerotic heart disease of [place] coronary artery without angina pectoris Category: Medical Plan: CT scan also describes mild coronary calcification. Clinically, he has got absolutely no angina. He is already on some statins. Again main recommendation would be to stop smoking. (3) Nicotine dependence, cigarettes, uncomplicated: Comment: (current smoker, onset 13yo, 1ppd x 40yrs, 40pyh) Code(s): F17.210 - Nicotine dependence, cigarettes, uncomplicated Category: Medical Plan: Per patient, he is trying to quit. We discussed about benefits from quitting as well as risks from continued smoking. He states he is trying. Plan Discussed with significant other. Orders: Orders CA echo transthoracic complete 6 Months I77.810 - Thoracic aortic ectasia Coding Level of Care Code Est Pt Level 4 (14714) Diagnoses Ascending aorta dilatation I77.810 Atherosclerotic cardiovascular disease I25.10 Nicotine dependence, cigarettes, uncomplicated F17.210 CPT Codes EKG - CPT: 25225-[id number], Complete ([id number])
== END 2024-03-25 11:23 | disposition home or self-care (01) ==
PROVIDERS: PCP Nurse Practitioner Family; Visit Provider Internal Medicine
DX: I77.810 Thoracic aortic ectasia (principal); I25.10 Atherosclerotic heart disease of native coronary artery without angina pectoris; F17.210 Nicotine dependence, cigarettes, uncomplicated
CPT/HCPCS: 93010; 99214

== ENCOUNTER → 2024-03-25 10:52 | Outpatient (BNVA) | payer OTHER, SELFPAY | PROVIDERS: PCP Nurse Practitioner Family; Visit Provider Internal Medicine | DX: I77.810 Thoracic aortic ectasia (principal); I25.10 Atherosclerotic heart disease of native coronary artery without angina pectoris; F17.210 Nicotine dependence, cigarettes, uncomplicated | CPT/HCPCS: 93005; 99212 ==

== ENCOUNTER 2024-04-01 08:02 | Outpatient (AMB) | payer OTHER, SELFPAY ==
--- NOTE | 2024-04-01 08:03 | MHC.OFFWIV ---
Intake Vital Signs 04/01/24 08:04 Height 5 ft 8 in Weight 208 lb BMI 31.6 BP 108/80 Blood Pressure Location Rt brachial Position Sitting Pulse 99 Pulse Source Pulse Oximeter Temp 97.5 F Temp Source Temporal Artery Scan Pulse Oximetry (%) 97 Oxygen Delivery Method Room Air Intake Visit Reasons: EP Back Intake Note: pt c/o back pain. Ongoing Patient Tobacco Use Status: Current everyday Tobacco user Allergies lisinopril Allergy (Severe, Verified 04/01/24 08:03) Anaphylaxis clindamycin Allergy (Mild, Verified 04/01/24 08:03) Itching doxycycline Allergy (Mild, Verified 04/01/24 08:03) Shortness of Breath Do you need a note to return to daycare/school/sports/work: No HPI HPI Comments History of Present Illness Details 53 y/o male patient who presents to the walk in clinic with c/o low back pain for 1 week. Reports that pain is located midline, and no radiation. Denies urinary and bowel symptoms. 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 Denies injury or trauma to the back. [facility] Medical History (Updated 03/25/24 @ 11:19 by Isrrael Adkins MD) Retinopathy Nicotine dependence, cigarettes, uncomplicated Diverticulosis Alcohol dependence Heroin abuse Overweight (BMI 25.0-29.9) Intestinal malabsorption following gastrectomy Varicose veins of left lower extremity Kidney disease Gout Obstructive sleep apnea Bipolar 1 disorder Hyperlipidemia Hypertension Diabetes Surgical History (Updated 12/11/23 @ 11:36 by Radha Vergara PA-C) History of sleeve gastrectomy History of colonoscopy Family History Father No problems noted. Mother HTN (hypertension) Brother No problems noted. Sister No problems noted. Social History Housing: Apartment Alcohol intake: former Patient Tobacco Use Status: Current everyday Tobacco user Tobacco use type: Cigarette Cigarette Packs Per Day: 1.5 Cigarettes Per Day: 25 Years Smoked: 38 e-Cigarette/Vaping Use: Never Used Second Hand Smoke Exposure: No Substance Use Type: Crack/Cocaine Advance Directives Date on File: 08/15/16 Current occupational status: disabled Cognitive needs: No Hearing needs: No Vision needs: No Review of Systems Const All systems reviewed & are unremarkable except as noted in HPI and below Physical Exam Vital Signs: Last Vital Signs Temp 97.5 F 04/01/24 08:04 Pulse 99 04/01/24 08:04 BP 108/80 04/01/24 08:04 Pulse Ox 97 04/01/24 08:04 Oxygen Delivery Method Room Air 04/01/24 08:04 BMI result Body Mass Index 31.6 Const General: comfortable and no acute distress Nutritional Appearance: overweight Orientation/consciousness: patient oriented x3 General: Yes no CVA tenderness Back/Spine/Pelvis Back: no CVA tenderness and back tenderness Thoracic/Lumbar Spine: thoraco-lumbar ROM normal, thoraco-lumbar spasm, thoracic spinal tenderness and lumbar spinal tenderness Skin General skin exam: no rashes or lesions noted Neuro General: patient oriented x3, gait normal and moves all extremities Psych Speech and movement: Normal speech and movement present Assessment & Plan Assessment & Plan (1) Lumbago without sciatica: Code(s): M54.50 - Low back pain, unspecified Qualifiers: Back pain laterality: midline Chronicity: acute Qualified Code(s): M54.50 - Low back pain, unspecified Plan: Rest Acetaminophen and Ibuprofen for pain relief IceHot If pain worse RTC Medications: New prednisone 20 mg PO DAILY 7 tabs 0RF M54.50 - Low back pain, unspecified acetaminophen 1,000 mg (2 x 500 mg) PO Q6H PRN 30 caps 0RF pain M54.50 - Low back pain, unspecified ibuprofen 800 mg PO Q8H 30 tabs 0RF M54.50 - Low back pain, unspecified cyclobenzaprine 10 mg PO BEDTIME 10 tabs 0RF M54.50 - Low back pain, unspecified lidocaine 5% leave on most painful area for up to 12 hrs 1 patch topical DAILY 15 ea 0RF M54.50 - Low back pain, unspecified Coding Level of Care Code Est Pt Level 3 (17924) Diagnoses Acute midline low back pain without sciatica M54.50 Back pain laterality: midline Chronicity: acute Time Spent (min) 15
[2024-04-01 08:04] VITALS: BP 108/80; PULSE 99; TEMP 36.4; O2SAT 97; BMI 31.6
== END 2024-04-01 08:52 | disposition home or self-care (01) ==
PROVIDERS: PCP Nurse Practitioner Family; Visit Provider Nurse Practitioner Family
DX: M54.50 Low back pain, unspecified (principal)
CPT/HCPCS: 99213

== ENCOUNTER 2024-06-25 07:59 | Outpatient (AMB) | payer OTHER, SELFPAY ==
[2024-06-25 08:14] VITALS: BP 122/80; PULSE 88; TEMP 36.6; O2SAT 94; BMI 31.6
--- NOTE | 2024-06-25 08:14 | AM.OFFWIN_ITS ---
Intake Vital Signs 06/25/24 08:14 Height 5 ft 8 in Weight 208 lb BMI 31.6 BP 122/80 Blood Pressure Location Rt brachial Position Sitting Pulse 88 Pulse Source Pulse Oximeter Temp 97.8 F Temp Source Oral Pulse Oximetry (%) 94 Intake Visit Reasons: EP-lt underarm cyst Intake Note: pt is here for left underarm cyst, may need to be drained and treated per patient Patient Tobacco Use Status: Current everyday Tobacco user Allergies lisinopril Allergy (Severe, Verified 06/25/24 08:15) Anaphylaxis clindamycin Allergy (Mild, Verified 06/25/24 08:15) Itching doxycycline Allergy (Mild, Verified 06/25/24 08:15) Shortness of Breath Do you need a note to return to daycare/school/sports/work: No HPI HPI Comments History of Present Illness Details Patient is a 53-year-old male with a past medical history of hidradenitis suppurativa complaining of a cyst under his left armpit that has been there for the last 4-5 days. He states it is getting more and more painful and he believes it needs to be drained. He denies a history of MRSA [facility] Medical History (Updated 06/25/24 @ 08:52 by Calista Mcdowell PA-C) Retinopathy Nicotine dependence, cigarettes, uncomplicated Diverticulosis Alcohol dependence Heroin abuse Overweight (BMI 25.0-29.9) Intestinal malabsorption following gastrectomy Varicose veins of left lower extremity Kidney disease Gout Obstructive sleep apnea Bipolar 1 disorder Hyperlipidemia Hypertension Diabetes Surgical History (Updated 12/11/23 @ 11:36 by Radha Vergara PA-C) History of sleeve gastrectomy History of colonoscopy Family History Father No problems noted. Mother HTN (hypertension) Brother No problems noted. Sister No problems noted. Social History Housing: Apartment Alcohol intake: former Patient Tobacco Use Status: Current everyday Tobacco user Tobacco use type: Cigarette Cigarette Packs Per Day: 1.5 Cigarettes Per Day: 25 Years Smoked: 38 e-Cigarette/Vaping Use: Never Used Second Hand Smoke Exposure: No Substance Use Type: Crack/Cocaine Advance Directives Date on File: 08/15/16 Current occupational status: disabled Cognitive needs: No Hearing needs: No Vision needs: No Review of Systems Const All systems reviewed & are unremarkable except as noted in HPI and below Physical Exam Vital Signs: Last Vital Signs Temp 97.8 F 06/25/24 08:14 Pulse 88 06/25/24 08:14 BP 122/80 06/25/24 08:14 Pulse Ox 94 06/25/24 08:14 BMI result Body Mass Index 31.6 Const General: cooperative, healthy appearing, comfortable, no acute distress and well developed Orientation/consciousness: patient oriented x3 Limitations: no limitations HEENT Head: Yes normal to inspection Ears: hearing grossly normal bilaterally General nose exam: Normal external nose present Face and sinus: Yes normal facial exam Eyes General: appearance normal, both eyes and all related structures Neck Neck: Yes normal visual inspection and Yes full ROM Resp Effort & Inspection: normal respiratory effort and able to speak in complete sentences Skin General skin exam: no rashes or lesions noted Neuro General: patient oriented x3 Extrem Other: Left axilla has a 3 cm by 1.5 cm tender, erythematous abscess with induration and tunneling surrounding it. General: Yes normal to inspection Office Procedures Incision and Drainage Details: injected 3mL 1% lidocaine to numb, then made small incision with #11 blade, copious amounts of purulent fluid expressed, explored with Q-tip, expressed more purulent fluid, and blood. Fact with a small amount of iodoform and covered with gauze and Tegaderm Incision and drainage performed by: Calista Mcdowell Informed consent given: Yes Consent signed: No Time out staff in room: No Time out verified: No Location: left axilla Anesthesia: local Incision with: #11 blade Drainage quality: purulent and bloody Probed cavity: Yes Culture taken: Yes Lesion: erythema, drainage, fluctuance and induration Hemostasis: pressure Cavity management: irrigated Dressing: tegaderm Patient tolerated procedure: well Complications: No Assessment & Plan Assessment & Plan (1) Abscess: Code(s): L02.91 - Cutaneous abscess, unspecified Plan: Incision and drainage performed, we will send antibiotics as some of it was indurated and patient has a history of HS. Wound culture has been sent. Plan See above Orders: Orders Routine Culture w Gram Stain Today L02.91 - Cutaneous abscess, unspecified, L73.2 - Hidradenitis suppurativa Medications: New cephalexin 500 mg PO Q6H 14 caps 0RF Coding Level of Care Code Est Pt Level 4 (30284) Diagnoses Abscess L02.91
== END 2024-06-25 08:59 | disposition home or self-care (01) ==
PROVIDERS: PCP Nurse Practitioner Family; Visit Provider Physician Assistant
DX: L02.91 Cutaneous abscess, unspecified (principal)

== ENCOUNTER 2024-06-25 07:59 | Outpatient (REF) | payer OTHER, SELFPAY | END 2024-06-25 08:00 | disposition home or self-care (01) | LOC: HO.LAB 07:59 | PROVIDERS: PCP Nurse Practitioner Family; Visit Provider Physician Assistant | DX: L73.2 Hidradenitis suppurativa (principal); L02.91 Cutaneous abscess, unspecified | CPT/HCPCS: 10060; 87070; 87205; 99212 ==

== ENCOUNTER 2024-07-21 06:09 | Outpatient (REF) | payer OTHER, SELFPAY ==
[2024-07-21 06:22] LABS: MANUAL DIFF FLAG NO
[2024-07-21 07:22] LABS: Basophils Absolute Auto 0.1 X10*3/uL (0.0-0.2); Basophils Percent Auto 0.6 % (0-2); Eosinophils Absolute Auto 0.7 X10*3/uL (0.0-0.4); Eosinophils Percent Auto 5.3 % (0-4); Hematocrit 47.8 % (42.0-52.0); Hemoglobin 15.5 g/dl (14.0-18.0); Imm Gran Abs Auto 0.04 X10*3/uL (0.00-0.03); Imm Gran Pct Auto 0.3 % (0.0-0.4); Lymphocytes Absolute Auto 3.6 X10*3/uL (1.2-4.9); Lymphocytes Percent Auto 28.3 % (20-40); Mean Corpuscular HGB Conc 32.4 g/dl (31.0-36.0); Mean Corpuscular Hemoglobin 29.4 pg (27.0-33.0); Mean Corpuscular Volume 90.5 fL (80.0-98.0); Mean Platelet Volume 10.7 fL (9.4-12.4); Monocytes Percent Auto 8.2 % (2-11); Neutrophils Absolute Auto 7.3 x10*3/uL (2.0-8.3); Neutrophils Percent Auto 57.3 % (45-73); Platelet Count 288 X10*3/uL (160-400); Red Blood Count 5.28 X10*6/uL (4.60-5.80); White Blood Count 12.7 X10*3/uL (4.8-10.8)
[2024-07-21 07:28] LABS: Estimated Average Glucose 128 mg/dL; Hemoglobin A1C 172.4723 umol/L; Hemoglobin A1c % 6.1 % (<6.0); Total Hemoglobin (HGBA1C) 3986.6906 umol/L
[2024-07-21 08:07] LABS: Alanine Aminotransferase 25 U/L (0-40); Albumin Level 3.9 g/dL (3.5-5.0); Alkaline Phosphatase 56 U/L (39-117); Anion Gap 14 (12-20); Aspartate Amino Transferase 21 U/L (5-37); Bilirubin Total 0.2 mg/dL (0.0-1.0); Blood Urea Nitrogen 19 mg/dL (9-16); Calcium 9.4 mg/dL (8.4-10.2); Carbon Dioxide 24 mmol/L (22-29); Chloride 106 mmol/L (96-108); Cholesterol 171 mg/dL (<200); Estimated Glomerular Filt Rate > 60; Glucose Random 114 mg/dL (60-115); HDL Cholesterol 41 mg/dL (>40); LDL Cholesterol Calculated 95 mg/dL (<100); Potassium 4.1 mmol/L (3.3-5.1); Sodium 140 mmol/L (135-145); Total Protein 7.2 g/dL (6.5-8.0); Triglycerides 178 mg/dL (<150)
== END 2024-07-21 06:10 | disposition home or self-care (01) ==
LOC: HO.LAB 06:09
PROVIDERS: PCP Nurse Practitioner Family; Visit Provider Nurse Practitioner Psychiatric/Mental Health
DX: F31.32 Bipolar disorder, current episode depressed, moderate (principal); Z13.1 Encounter for screening for diabetes mellitus
CPT/HCPCS: 36415; 80053; 80061; 83036; 84443; 85025

== ENCOUNTER 2024-07-23 10:15 | Outpatient (REF) | payer OTHER, SELFPAY ==
--- NOTE | ~2024-07-23 | XR_ITS ---
EXAMINATION: XR LUMBOSACRAL SPINE CLINICAL INFORMATION: Low back pain, unspecified M54.50. COMPARISON: None available TECHNIQUE: Three views of the lumbosacral spine. FINDINGS: Mild right convex lumbar scoliosis. Grade 1 anterolisthesis of L4 on L5. Slight retrolisthesis of L1 on L2. No fractures. Vertebral body heights are normal. Moderate to severe degenerative disc disease at L1-L2 and more mild multifocal degenerative disc disease at the other levels characterized by loss of intervertebral disc height and endplate osteophytes. Severe facet arthropathy at L4-L5 and L5-S1. Chain reginaldo in the left upper quadrant. Atherosclerotic calcifications in the abdominal aorta and iliac arteries. No acute soft tissue findings. XR/XR lumbar spine 2-3V IMPRESSION: 1. Moderate to severe degenerative disc disease at L1-L2 and more mild degenerative disc disease at the other levels. 2. Severe facet arthropathy at L4-L5 and L5-S1 with grade 1 anterolisthesis of L4 on L5. Electronically signed by: Wei Dumont MD 08/16/2024 10:46 PM GIUSEPPE DO
== END 2024-07-23 10:16 | disposition home or self-care (01) ==
LOC: HO.HMGCX 10:15
PROVIDERS: PCP Nurse Practitioner Family; Visit Provider Nurse Practitioner Family
DX: M54.50 Low back pain, unspecified (principal); L73.2 Hidradenitis suppurativa; E11.9 Type 2 diabetes mellitus without complications; I77.819 Aortic ectasia, unspecified site; Z23 Encounter for immunization
CPT/HCPCS: 72100; 90471; 90677; 90715; 96127; 99212

== ENCOUNTER 2024-07-23 10:15 | Outpatient (AMB) | payer OTHER, SELFPAY ==
[2024-07-23 10:17] VITALS: BP 130/86; PULSE 86; O2SAT 98; BMI 32.4
--- NOTE | 2024-07-23 10:17 | A.OFFPC_ITS ---
Vital Signs 07/23/24 10:17 Height 5 ft 8 in Weight 213 lb 4 oz BMI 32.4 BP 130/86 Blood Pressure Location Lt brachial Position Sitting Pulse 86 Pulse Source Pulse Oximeter Pulse Oximetry (%) 98 Oxygen Delivery Method Room Air Intake Visit Reasons: diabetes f/u Allergies lisinopril Allergy (Severe, Verified 07/23/24 10:20) Anaphylaxis clindamycin Allergy (Mild, Verified 07/23/24 10:20) Itching doxycycline Allergy (Mild, Verified 07/23/24 10:20) Shortness of Breath Tobacco use date assessed: 07/23/24 Dental Screening Dental Screen Date: 07/23/24 Did you have a dental visit in the last 12 months?: Yes Did you have a dental problem in the last 6 months where you did not have access to dental care?: No Was dental information given to patient?: Patient has dentist HPI diabetes f/u HPI Details History of Present Illness The patient is a 53-year-old male presenting with lower back pain. The pain began approximately two weeks ago following an event where the patient was carrying heavy items at a [employer]. Since onset, the pain has been intermittent, with some days being more painful than others. The pain is not accompanied by bowel or bladder incontinence. The patient denies having any shooting pains down the lower extremities. He notes a sensation in his vertebrae. Past medical history includes a noted aortic dilatation, which is being monitored by another healthcare provider. He has an upcoming appointment in August to assess this condition further. Hx of HS, active drainage. c hronic leukocytosis related to this, derm referral recommended. Social History - Engages in physical activities that in volve lifting heavy objects. - History of cigarette smoking but repor ts not having smoked in a week. Review of Systems - Musculoskeletal: Reports intermittent lower back pain. - Neurological: Denies shooting pains in right lower extremity. - Genitourinary: Denies bowel or bladder incontinence. Physical Exam - Neurological- Gait assessment conducte d; specifics not noted. lower transverse back pain increased with RLE straight leg raises without radicular symptoms. s1 s2 lungs fairly clear bilat +sensation with monofilament to bilat fe et, intact A+0 scarring (extensive), pocketing to bilat axillas, groin (HS). draining foul smelling drainage to left axilla currently, Results labs in chart. chronic leukocytosis most likely related to HS (chronic) Plan - Lower back pain: Continue current sarabjit toring. Evaluate worsening symptoms or changes in symptomatology. XR ordered, tylenol prn - Aortic dilatation: Monitor with follow -up appointment set for August. - History of nicotine use: Continue cess ation support to prevent pulmonary complications. -referring to derm for HS, antibiotic se nt Patient was informed and verbally consented to the use of an ambient scribe for clinic note documentation during this visit. Discussion Notes During our discussion, the patient relayed the nature and onset of his back pain and resulting functional limitations. We reviewed his history of aortic dilatation, which is under current surveillance. I emphasized the importance of attending the scheduled follow-up to reassess the dilatation. We discussed the benefits of ongoing smoking cessation, particularly its impact on cardiovascular and pulmonary health. I encouraged the patient to maintain cessation and discussed potential risks and symptoms associated with worsening of both back pain and aortic dilatation. The patient was advised to return should symptoms of back pain worsen or become more consistent. Patient Instructions - Continue to monitor back pain symptoms ; avoid activities that exacerbate the condition. - Attend the follow-up appointment regar ding the aortic dilatation in August. - Maintain smoking cessation efforts; se ek support if needed. - Report any significant changes or new symptoms to the clinic immediately. [facility] Medical History Retinopathy Nicotine dependence, cigarettes, uncomplicated Diverticulosis Alcohol dependence Heroin abuse Overweight (BMI 25.0-29.9) Intestinal malabsorption following gastrectomy Varicose veins of left lower extremity Kidney disease Gout Obstructive sleep apnea Bipolar 1 disorder Hyperlipidemia Hypertension Diabetes Surgical History History of sleeve gastrectomy History of colonoscopy Family History Father No problems noted. Mother HTN (hypertension) Brother No problems noted. Sister No problems noted. Social History Housing: Apartment Alcohol intake: former Patient Tobacco Use Status: Current everyday Tobacco user Tobacco use type: Cigarette Cigarette Packs Per Day: 1.5 Cigarettes Per Day: 25 Years Smoked: 38 e-Cigarette/Vaping Use: Never Used Second Hand Smoke Exposure: No Substance Use Type: Crack/Cocaine Advance Directives Date on File: 08/15/16 Current occupational status: disabled Cognitive needs: No Hearing needs: No Vision needs: No Questionnaire PHQ-9 Over the last 2 weeks, how often have you been bothered by any of the following problems? 1. Little interest or pleasure in doing things: nearly every day 2. Feeling down, depressed, or hopeless: not at all 3. Trouble falling or staying asleep, or sleeping too much: more than half the days 4. Feeling tired or having little energy: more than half the days 5. Poor appetite or overeating: not at all 6. Feeling bad about yourself - or that you are a failure or have let yourself or your family down: not at all 7. Trouble concentrating on things, such as reading the newspaper or watching television: not at all 8. Moving or speaking so slowly that other people could have noticed. Or the opposite - being so fidgety or restless that you have been moving around a lot more than usual: not at all 9. Thoughts that you would be better off or of hurting yourself in some way: not at all Total score: 7 Depression Screening Interpretation: Negative Depression Screening Done: Yes 07407 - PHQ-9 Billing: Yes Source: Developed by Drs. Herve Berg, Dina Segovia, Frederick Sandoval and colleagues, with an educational annelise from [employer]. Thrive Questionnaire Date Thrive assessed: 07/23/24 I am a: Patient What is your living situation today?: I have a steady place to live Within the past 12 months, did the food you bought not last and you didn't have the money to get more?: Never true Within the past 12 months, did you worry whether your food would run out before you got money to buy more?: Never true Do you have trouble paying for medicines?: No Do you have trouble getting transportation to medical appointments?: No Do you have trouble paying your heating and electricity bill?: No Do you have trouble taking care of your child, family member or friend?: No Do you have trouble with day-to-day activities such as bathing, preparing meals, shopping, managing finances, etc.?: No Are you currently unemployed and looking for a job?: No Are you interested in more education?: No Please select the resources that you would like help with: None Currently or been in a relationship where the following occur: No concerns reported THRIVE Score: 0 AUDIT C Alcohol Use Questionnaire (AUDIT-C) 1. How often do you have a drink containing alcohol?: Never 3. How often do you have six or more drinks on one occasion?: Never Total Score: 0 FELIX-7 AMB Questionnaire FELIX-7 Date FELIX - 7 assessed: 07/23/24 Feeling nervous, anxious, or on edge: 0 = Not at all Not being able to stop or control worryin = Not at all Worrying too much about different things: 0 = Not at all Trouble relaxin = Not at all Being so restless that it is hard to sit still: 0 = Not at all Becoming easily annoyed or irritable: 0 = Not at all Feeling afraid as if something awful might happen: 0 = Not at all Total FELIX-7 score (0-4 normal; 5-9 mild; 10-14 moderate; 15-21 severe): 0 Source: Developed by Drs. Herve Berg, Dina Segovia, Frederick Sandoval and colleagues, with an educational annelise from [employer]. FELIX-7 Assessment Billing FELIX-7 Assessment Tool: FELIX-7 Assessment 99564 Physical exam (Primary Care) Vital Signs: Last Vital Signs Pulse 86 07/23/24 10:17 BP 130/86 07/23/24 10:17 Pulse Ox 98 07/23/24 10:17 Oxygen Delivery Method Room Air 07/23/24 10:17 BMI result Body Mass Index 32.4 Tobacco/Smoking Status: Tobacco use Status Tobacco use date assessed 07/23/24 07/23/24 10:22 Patient Tobacco Use Status Current everyday Tobacco 07/23/24 10:22 Tobacco use type Cigarette 07/23/24 10:22 e-Cigarette/Vaping Use Never Used 07/23/24 10:22 PHQ-9: PHQ-9 Score PHQ-9: Total score 7 07/23/24 10:41 Depression Screening Interpretation: Negative Thrive Assessment: Date of Thrive Assessment Date Thrive assessed 07/23/24 07/23/24 10:22 Currently or been in a relationship where the following occur: No concerns reported Immunizations pneumoc 20-norma conj-dip cr(PF) 0.5 mL IM syringe Performing Provider: JULIO Anderson Performing Location: [facility] Administered by: Stephanie Campoverde CMA on 07/23/24 11:01 Dose Route Admin Location Dispensed Lot Number Expiration Date NDC Residential Door Unit Installer 0.5 mL IM Left Tricep 0.5 mL [id number] 12/24/25 2789-2292-05 WYETH/PFIZER VIS Given Date VIS Provided VIS Publication Date 07/23/24 Single Vaccine 21 Eligibility Eligibility Date Funding Source Not VFC Eligible 07/23/24 Private Boostrix Tdap 2.5 Lf unit-8 mcg-5 Lf/0.5 mL intramuscular syringe Performing Provider: JULIO Anderson Performing Location: [facility] Administered by: Stephanie Campoverde CMA on 07/23/24 11:01 Dose Route Admin Location Dispensed Lot Number Expiration Date NDC Residential Door Unit Installer 0.5 mL IM Right Tricep 0.5 mL [id number] 05/24/25 54170-557-84 GLAXOSMITHKLINE 2 VIS Given Date VIS Provided VIS Publication Date 07/23/24 Single Vaccine 21 Eligibility Eligibility Date Funding Source Not VFC Eligible 07/23/24 Private Coding Level of Care Code Est Pt Level 3 (23042) Diagnoses Hidradenitis suppurativa L73.2 Lower back pain M54.50 Diabetes E11.9 Additional Codes FELIX-7 Assessment Billing - FELIX-7 Assessment Tool: FELIX-7 Assessment 60855 ([id number]) PHQ-9 - 91092 - PHQ-9 Billing: Yes ([id number]) Assessment & Plan Assessment & Plan (1) Hidradenitis suppurativa: Code(s): L73.2 - Hidradenitis suppurativa Category: Medical (2) Lower back pain: Code(s): M54.50 - Low back pain, unspecified Category: Medical (3) Diabetes: Comment: off Rx since weight loss surgery Code(s): E11.9 - Type 2 diabetes mellitus without complications Category: Medical Plan . Orders: Orders Complete Blood Count Auto Diff Today L73.2 - Hidradenitis suppurativa TDaP Immunization Today Z23 - Encounter for immunization Pneumococcal 20 Immunization Today Z23 - Encounter for immunization Comprehensive Met. Panel Today L73.2 - Hidradenitis suppurativa XR lumbar spine 2-3V Today M54.50 - Low back pain, unspecified Referrals Dermatology Referral L73.2 - Hidradenitis suppurativa Medications: New cephalexin 500 mg PO Q12H 7 days 14 caps 0RF pneumoc 20-norma conj-dip cr(PF) 0.5 mL IM ONCE 0.5 mL 0RF Z23 - Encounter for immunization Boostrix Tdap (diphth,pertus(acell),tetanus) 0.5 mL IM ONCE 0.5 mL 0RF NS Z23 - Encounter for immunization
== END 2024-07-23 11:07 | disposition home or self-care (01) ==
PROVIDERS: PCP Nurse Practitioner Family; Visit Provider Nurse Practitioner Family
DX: L73.2 Hidradenitis suppurativa (principal); M54.50 Low back pain, unspecified; E11.9 Type 2 diabetes mellitus without complications; Z23 Encounter for immunization

== ENCOUNTER → 2024-09-15 08:59 | Outpatient (REF) | payer OTHER, SELFPAY ==
--- NOTE | 2024-09-15 09:02 | CA_ITS ---
Transthoracic Echocardiogram Patient (Last, First, Middle): Harlan Barnett T Gender: Male Date of : 1970 Age: 53 Procedure Date: 09/15/2024 Procedure Type: Transthoracic Echocardiogram Location: OP Height: 172.72 cm Weight: 96.62 kg BSA: 2.10 m2 Heart Rate: 85 bpm BP: 100 / 65 mmHg Botany Professor: FLORI Referring MD: Isrrael Adkins MD Pre Assembly Wirer: Parker Baker MD Symptoms: I77.810 - Thoracic aortic ectasia Study Quality: Adequate ECG Rhythm: Sinus Conclusions: - 1. Low normal LV ejection fraction 50-55% with grade 1 diastolic dysfunction with regional wall motion abnormality 2. Calcified aortic valve changes noted with trivial aortic regurgitation 3. Mildly dilated ascending aorta at 4 cm 4. No gross pericardial effusion Findings Left Ventricle Normal left ventricular cavity size. There is mildly increased left ventricular wall thickness. The left ventricular systolic function is low normal. The visually estimated ejection fraction is between 50-55%. Spectral Doppler is indicative of an impaired relaxation filling pattern. E/E prime ratio is <8, consistent with normal filling pressures. Wall Motion Rest Echo Findings The basal inferolateral segment is hypokinetic. The basal inferior segment is akinetic. All other scored wall segments showed normal motion. Right Ventricle Normal right ventricular cavity size and systolic function. Atria The left atrium is normal in size. There is lipomatous hypertrophy of the interatrial septum. There is no evidence of interatrial shunt. The right atrium is normal in size. Aortic Valve There is mild calcification of the aortic valve. There is mild thickening of the aortic valve. There is no aortic valve stenosis. There is trace (trivial) aortic valve regurgitation. Mitral Valve There is mild anterior and posterior mitral leaflet thickening. There is trace mitral valve regurgitation. There is no mitral valve stenosis. Pulmonic Valve The pulmonic valve is likely normal. Tricuspid Valve Likely normal tricuspid valve structure and function. Tricuspid regurgitation envelope is inadequate for calculation of right ventricular systolic pressure. Normal right atrial pressure. There is no evidence of pulmonary hypertension. Great Vessels The aorta was not well visualized. The pulmonary artery was not well visualized. There is mild dilatation of the ascending aorta measuring 4.00 cm. Small plaque is seen in the sino tubular ridge. Venous The inferior vena cava is normal in size and collapses greater than 50% with inspiration. Pericardium/Pleural There is no evidence of pericardial effusion. Prior Study Comparison Changes noted compared to prior study dated: 10/11/2016. LV ejection fraction in his lower. Regional wall motion abnormalities noted. Ascending aorta is mildly dilated Measurements 2D Linear Measurements IVSd: 1.30 0.6-0.9/0.6-1.0 cm LVIDd: 4.68 3.9-5.3/4.2-5.9 cm LVIDd Index: 2.23 2.4-3.2/2.2-3.1 cm/m2 LVIDs: 3.38 2.0-3.6 cm LVPWd: 1.13 0.7-1.1 cm LA Diam: 3.00 2.7-3.8/3.0-4.0 cm LAIDs Index: 1.43 1.5-2.3 cm/m2 LV Mass: 267.20 67-162/88-224 g LV Mass Index: 127.24 43-95/49-115 g/m2 LVOT Diam: 2.30 3.0+(-)1.3 cm 2D Systolic Function EF 4C: 50.40 >55% EF 2C: 55.10 >55% EF BiP: 51.80 >55% Mitral Valve MV Pk E: 0.68 MV PK A: 0.92 MV Decel Time: 205.00 E/A: 0.70 E'Lateral: 9.90 E'Medial: 5.11 E/E' Med: 13.20 E/E' Lat: 6.80 PHT: 60.00 MVA PHT: 3.67 Decel [place]: 3.31 Aortic Valve AoV Pk [place]: 1.30 AoV Mn [place]: 0.93 AoV VTI: 0.24 AoV Pk Grad: 7.00 Aov Mn Grad: 4.00 WILLIAMS Cont.VTI: 3.02 LVOT LVOT Pk [place]: 0.78 LVOT Mn [place]: 0.55 LVOT VTI: 0.18 LVOT Pk Grad: 2.00 LVOT Mn Grad: 1.00 LVOT Diam: 2.30 LVOT Area: 4.15 Diastolic Function MV Pk E: 0.68 MV Pk A: 0.92 E/A: 0.70 E'Medial: 5.11 E/E' Med: 13.20 E' Laterial: 9.90 E/E' Lat: 6.80 Right Ventricle TAPSE (mm): 19.90 TVS' [place]: 10.20 Tricuspid Valve RA Press: 3.00 Great Vessels Aorta Sinus of Valsalva: 4.10 2.0-3.5 cm Ao Asc: 4.00 2.1-3.4 cm Pulmonary Valve PV Pk [place]: 0.60 Peak PV Grad: 1.00 Updated in Other Vendor System with Status of Final Parker Baker MD electronically signed on 09/16/2024 4:54:00 PM with status of Final
== END ==
LOC: HO.CARD 08:59
PROVIDERS: PCP Nurse Practitioner Family; Visit Provider Internal Medicine
DX: I77.810 Thoracic aortic ectasia (principal)
CPT/HCPCS: 93306

== ENCOUNTER → 2024-09-15 09:02 | Outpatient (BNV) | payer OTHER, SELFPAY | PROVIDERS: PCP Nurse Practitioner Family; Visit Provider Internal Medicine Cardiovascular Disease | DX: I51.89 Other ill-defined heart diseases (principal); I35.1 Nonrheumatic aortic (valve) insufficiency; I35.8 Other nonrheumatic aortic valve disorders | CPT/HCPCS: 93306 ==

== ENCOUNTER 2024-09-18 11:11 | Outpatient (AMB) | payer OTHER, SELFPAY ==
[2024-09-18 11:16] VITALS: BP 90/60; PULSE 90; BMI 32.2
--- NOTE | 2024-09-18 11:16 | MHC.OFFVIS ---
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 Mechanic Required: No Accompanied by: Spouse Allergies lisinopril Allergy (Severe, Verified 07/23/24 10:20) Anaphylaxis clindamycin Allergy (Mild, Verified 07/23/24 10:20) Itching doxycycline Allergy (Mild, Verified 07/23/24 10:20) Shortness of Breath Medication List - Last Reconciled 09/18/24 by Isrrael Adkins MD acetaminophen 1,000 mg (2 x 500 mg) PO Q6H PRN atorvastatin 10 mg PO BEDTIME 90 days bupropion HCl XL 300 mg PO QAM cholecalciferol (vitamin D3) 25 mcg PO DAILY 90 days clonidine HCl 0.1 mg PO TID cyanocobalamin (vitamin B-12) 500 mcg PO DAILY ibuprofen 800 mg PO Q8H multivitamin 1 tab PO DAILY topiramate 100 mg PO DAILY ziprasidone HCl (Geodon) 120 mg PO BEDTIME zolpidem 10 mg PO BEDTIME HPI Comments Details: Harlan returns for follow-up. Recently seen in consultation regarding thoracic aortic aneurysm. Patient himself does not have any known cardiac issues including coronary disease or myocardial infarction. History of alcohol as well as substance abuse. He has used cocaine within the last few months. Chronic smoker. Denies any cardiac symptoms like chest pain or shortness of breath. Recently completed an echocardiogram. [facility] Medical History Retinopathy Nicotine dependence, cigarettes, uncomplicated Diverticulosis Alcohol dependence Heroin abuse Overweight (BMI 25.0-29.9) Intestinal malabsorption following gastrectomy Varicose veins of left lower extremity Kidney disease Gout Obstructive sleep apnea Bipolar 1 disorder Hyperlipidemia Hypertension Diabetes Surgical History History of sleeve gastrectomy History of colonoscopy Family History Father No problems noted. Mother HTN (hypertension) Brother No problems noted. Sister No problems noted. Social History Housing: Apartment Alcohol intake: former Patient Tobacco Use Status: Current everyday Tobacco user Tobacco use type: Cigarette Cigarette Packs Per Day: 1.5 Cigarettes Per Day: 25 Years Smoked: 38 e-Cigarette/Vaping Use: Never Used Second Hand Smoke Exposure: No Substance Use Type: Crack/Cocaine Advance Directives Date on File: 08/15/16 Current occupational status: disabled Cognitive needs: No Hearing needs: No Vision needs: No Review of Systems Const Denies chills, Denies fatigue, Denies fever(s), Denies weight gain and Denies weight loss ENT Denies dizziness Card Denies chest pain, Denies leg edema, Denies lightheadedness, Denies palpitations, Denies dyspnea on exertion, Denies orthopnea and Denies other Resp Denies cough and Denies dyspnea on exertion GI Denies hematochezia and Denies change in stool character Musc Denies abnormal gait, Denies muscle weakness, Denies numbness, Denies radiating pain into limb and Denies tingling Neuro Denies abnormal gait, Denies dizziness, Denies numbness and Denies tingling Endo Denies fatigue and Denies palpitations Physical Exam Vital Signs: Last Vital Signs Pulse 90 09/18/24 11:16 BP 90/60 09/18/24 11:16 BMI result Body Mass Index 32.2 Const General: comfortable and no acute distress Orientation/consciousness: patient oriented x3 HEENT Other: Unremarkable Head: Yes normal to inspection Neck Neck: Yes normal visual inspection Chest Chest palpation & inspection: normal inspection of the chest Resp Auscultation: clear to auscultation bilaterally Cardio Palpation: normal PMI Heart sounds: S1 normal heart sound present, S2 normal heart sound present, no gallops, no murmurs and no rubs GI Palpation (GI): Soft to palpation Back/Spine/Pelvis Other: unremarkable Skin General skin exam: no rashes or lesions noted Neuro General: patient oriented x3 Extrem General: Yes normal to inspection Psych Mental Status: mental status grossly normal Assessment & Plan Assessment & Plan (1) Ascending aorta dilatation: Code(s): I77.810 - Thoracic aortic ectasia Category: Medical Plan: In the lung CT scan, ascending aortic size 4.1 cm. Probably related to his history of smoking. Will need to be followed periodically. Main recommendation will be to still stop smoking and keep blood pressure optimal. (2) Atherosclerotic cardiovascular disease: Code(s): I25.10 - Atherosclerotic heart disease of [place] coronary artery without angina pectoris Category: Medical Plan: CT scan also describes mild coronary calcification. In the echocardiogram, there is basal inferior akinesis and basal inferolateral hypokinesis. Images also reviewed. Low normal LVEF. 50-55%. Findings discussed with patient. Not clear if he had a prior infarct related to cocaine or if it is atherosclerotic disease. Start low-dose aspirin. Obtain coronary CTA. (3) Nicotine dependence, cigarettes, uncomplicated: Comment: (current smoker, onset 13yo, 1ppd x 40yrs, 40pyh) Code(s): F17.210 - Nicotine dependence, cigarettes, uncomplicated Category: Medical Plan: Must quit. (4) Substance abuse: Code(s): F19.10 - Other psychoactive substance abuse, uncomplicated Category: Medical Plan: History of cocaine use including recently. Advised to not do this anymore. Plan Discussed with significant other. Orders: Orders CT Cardiac Coronary Angio Today I25.10 - Atherosclerotic heart disease of [place] coronary artery without angina pectoris Basic Metabolic Panel Today I25.10 - Atherosclerotic heart disease of [place] coronary artery without angina pectoris Coding Level of Care Code Est Pt Level 4 (72364) Diagnoses Ascending aorta dilatation I77.810 Atherosclerotic cardiovascular disease I25.10 Nicotine dependence, cigarettes, uncomplicated F17.210 Substance abuse F19.10
== END 2024-09-18 11:40 | disposition home or self-care (01) ==
PROVIDERS: PCP Nurse Practitioner Family; Visit Provider Internal Medicine
DX: I77.810 Thoracic aortic ectasia (principal); I25.10 Atherosclerotic heart disease of native coronary artery without angina pectoris; F17.210 Nicotine dependence, cigarettes, uncomplicated; F19.10 Other psychoactive substance abuse, uncomplicated
CPT/HCPCS: 99214

== ENCOUNTER → 2024-09-18 11:11 | Outpatient (BNVA) | payer OTHER, SELFPAY | PROVIDERS: PCP Nurse Practitioner Family; Visit Provider Internal Medicine | DX: I77.810 Thoracic aortic ectasia (principal); I25.10 Atherosclerotic heart disease of native coronary artery without angina pectoris; F17.210 Nicotine dependence, cigarettes, uncomplicated; F19.10 Other psychoactive substance abuse, uncomplicated | CPT/HCPCS: 99212 ==

== ENCOUNTER 2024-09-22 08:00 | Outpatient (RCR) | payer OTHER, SELFPAY ==
--- NOTE | 2024-09-10 09:40 | MHC.PT.EP ---
[facility] [place] [facility] [place] [facility] [place] [facility] [address] Betty Kelly [address] [phone] F: [phone] F: [phone] F: [phone] F: [phone] Physical Therapy Plan of Care Date of Evaluation: 09/10/24 Date of Surgery: n/a Diagnosis: low back pain Assessment: Patient is a 53 year old male presenting to PT with complaints of pain in low back pain. Pt reports onset of pain began 6-8 months ago due to lifting. He presents today with impairments in pain, lumbar ROM, sensitivity to palpation, hip strength. Pt's current occupation is none, with baseline physical activities including ambulating, standing, lifting, ADLs. Pt expresses emt intermediate goal of reduce pain, and is motivated to work towards this in PT. Clinical presentation today is most consistent with signs and sx associated with low back pain and pt will benefit from skilled PT 2 week x 4 weeks to address the following problems and impairments noted upon evaluation: pain, lumbar ROM, sensitivity to palpation, hip strength. These problems limit the patient with the following functional activities: ambulating, standing, lifting, ADLs. The prescribed treatment plan of care is medically necessary. Co-morbidities of bipolar, DM, HTN were identified and taken into considerations of plan of care. Pt was educated on HEP, role of PT, prognosis, POC. Frequency and Duration: The patient will be seen 2 x week x 4 weeks Short Term Goals: Pt will demonstrate improved hip strength by 1/3 grade in 2 weeks. Pt will demonstrate ability to move through available lumbar ROM with min to no pain in 2 weeks. Country Sales Manager Goals: Pt will demonstrate improved Hermann score by 10% in 4 weeks for improved functional mobility. Pt will demonstrate ability to ambulate with min to no pain in 4 weeks for improved access to the community. Pt will demonstrate ability to lift household items with min to no pain in 4 weeks for return to PLOF. Treatment Plan: Modalities to reduce pain, spasms and effusion. Manual therapy to restore motion and function. Therapeutic exercise to improve strength and flexibility. Neuromuscular re-education for posture and balance. Therapeutic activities to return to functional activities of daily living. Electronically signed by: Sherly Newman, PT, DPT, ATC Please sign and return to therapist. Thank you for your referral.
--- NOTE | 2024-10-03 07:05 | MHC.PT.DC ---
[facility] [place] Office [place] Office [place] Office [address] Betty Kelly [address] [facility] [phone] F: [phone] F: [phone] F: [phone] F: [phone] Physical Therapy Discharge Report Diagnosis: low back pain Date of Surgery: n/a Date of Evaluation: 09/10/24 Date of Discharge: 10/03/24 Treatments to Date: 3 Cancellations to Date: 6 No Shows to Date: 0 Discharge Status: Patient Elected to Stop Discharge Summary: Pt called to cancel all remaining appointments stating his pain is getting worse and wants to follow up with his doctor. Therefore pt d/c per his request. Electronically signed by: Sherly Newman, PT, DPT, ATC Please sign and return to therapist. Thank you for your referral.
== END 2024-10-03 07:05 | disposition home or self-care (01) ==
LOC: HO.PTCHIC 08:00
PROVIDERS: PCP Nurse Practitioner Family; Visit Provider Nurse Practitioner Family
DX: M54.50 Low back pain, unspecified (principal)
CPT/HCPCS: 97110; 97161

== ENCOUNTER 2024-09-28 01:28 | Emergency (ER) | payer OTHER, SELFPAY ==
[2024-09-28 01:39] VITALS: BP 130/82; PULSE 97; RESP 18; TEMP 36.2; O2SAT 94; BMI 32.1
== END 2024-09-28 06:38 | disposition left against medical advice (07) ==
LOC: HO.ED 06:36
PROVIDERS: Emergency Provider Emergency Medicine; PCP Nurse Practitioner Family
DX: M54.50 Low back pain, unspecified (principal)
CPT/HCPCS: 99281

== ENCOUNTER 2024-09-29 11:35 | Outpatient (REF) | payer OTHER, SELFPAY ==
[2024-09-29 11:57] LABS: MANUAL DIFF FLAG NO
[2024-09-29 12:24] LABS: Basophils Absolute Auto 0.1 X10*3/uL (0.0-0.2); Basophils Percent Auto 0.5 % (0-2); Eosinophils Absolute Auto 0.2 X10*3/uL (0.0-0.4); Eosinophils Percent Auto 1.6 % (0-4); Hematocrit 47.1 % (42.0-52.0); Hemoglobin 15.5 g/dl (14.0-18.0); Imm Gran Abs Auto 0.07 X10*3/uL (0.00-0.03); Imm Gran Pct Auto 0.5 % (0.0-0.4); Lymphocytes Absolute Auto 3.3 X10*3/uL (1.2-4.9); Mean Corpuscular HGB Conc 32.9 g/dl (31.0-36.0); Mean Corpuscular Hemoglobin 29.4 pg (27.0-33.0); Mean Corpuscular Volume 89.2 fL (80.0-98.0); Mean Platelet Volume 10.6 fL (9.4-12.4); Monocytes Percent Auto 6.5 % (2-11); Neutrophils Absolute Auto 10.5 x10*3/uL (2.0-8.3); Neutrophils Percent Auto 68.9 % (45-73); Platelet Count 317 X10*3/uL (160-400); Red Blood Count 5.28 X10*6/uL (4.60-5.80); Red Cell Distribution Width 13.1 % (11.0-16.0); White Blood Count 15.2 X10*3/uL (4.8-10.8)
[2024-09-29 12:58] LABS: Alanine Aminotransferase 24 U/L (0-40); Albumin Level 4.3 g/dL (3.5-5.0); Alkaline Phosphatase 60 U/L (39-117); Anion Gap 12 (12-20); Aspartate Amino Transferase 21 U/L (5-37); Bilirubin Direct 0.1 mg/dL (0.0-0.5); Bilirubin Total 0.4 mg/dL (0.0-1.0); Blood Urea Nitrogen 18 mg/dL (9-16); Calcium 9.6 mg/dL (8.4-10.2); Carbon Dioxide 27 mmol/L (22-29); Chloride 107 mmol/L (96-108); Cholesterol 172 mg/dL (<200); Estimated Glomerular Filt Rate > 60; Glucose Random 109 mg/dL (60-115); HDL Cholesterol 40 mg/dL (>40); LDL Cholesterol Calculated 104 mg/dL (<100); Potassium 4.7 mmol/L (3.3-5.1); Sodium 141 mmol/L (135-145); Total Protein 8.1 g/dL (6.5-8.0); Triglycerides 141 mg/dL (<150)
[2024-09-29 15:58] LABS: Reflex LDLD? No
[2024-09-30 08:28] LABS: HBS Num1 0.33 mIU/mL (0-7.99); HBc Num1 0.06 S/CO (0.00-0.79); HBsAGNum1 0.31 S/CO (0.00-0.99); Hepatitis B Core Antibody Nonreactive (Nonreactive); Hepatitis B Surface Antigen Negative (Negative); ~Hepatitis B Surface Antibody NONREACTIVE (Nonreactive); ~Hepatitis C Antibody Nonreactive (Nonreactive)
[2024-10-02 13:18] LABS: TS Negative Control Passed; TS Panel A 0; TS Panel B 0; TS Positive Control Passed; TSpotTB Negative (Negative)
== END 2024-09-29 11:36 | disposition home or self-care (01) ==
LOC: HO.LAB 11:35
PROVIDERS: Absent Provider Internal Medicine; PCP Nurse Practitioner Family; Visit Provider Physician Assistant
DX: L73.2 Hidradenitis suppurativa (principal)
CPT/HCPCS: 36415; 80048; 80061; 80076; 85025; 86481; 86704; 86706; 86803; 87340

== ENCOUNTER → 2024-10-25 09:05 | Outpatient (BNV) | payer OTHER, SELFPAY | PROVIDERS: PCP Nurse Practitioner Family; Visit Provider Radiology Vascular & Interventional Radiology | DX: M51.360 Other intervertebral disc degeneration, lumbar region with discogenic back pain only (principal) | CPT/HCPCS: 72148 ==

== ENCOUNTER 2024-10-25 09:15 | Outpatient (REF) | payer OTHER, SELFPAY ==
--- NOTE | ~2024-10-25 | MR_ITS ---
CLINICAL HISTORY: M54.50 - Low back pain, unspecified MR lumbar spine without gadolinium Comparison: None Findings: No fracture or acute malalignment. No suspicious marrow lesion. 4 mm of anterolisthesis of L4 with respect to L5. 3 mm of anterolisthesis of L2 with respect to L1 The conus terminates normally at L1. The cauda equina are unremarkable. Retroperitoneal and paravertebral soft tissues are unremarkable. Individual levels: L1-L2: Small posterior disc protrusion with facet hypertrophy. Mild left neural foraminal narrowing. No central canal stenosis. L2-L3: Small posterior disc protrusion with facet hypertrophy. Severe left neural foraminal narrowing. Moderate right neural foraminal narrowing. No central canal stenosis. L3-L4: Small broad-based disc protrusion. Moderately severe bilateral neural foraminal narrowing. No central canal stenosis. L4-L5: Moderately severe central canal stenosis, axial images 23 and 24 on the T2 weighted sequence. Moderately severe bilateral neural foraminal narrowing at this level as well. L5-S1: Moderate bilateral neural foraminal narrowing. No central canal stenosis. Impression: Advanced degenerative changes. This is most pronounced at L4-L5 as detailed. No acute process. This document has been electronically signed by: Mohsen Romo MD on 10/25/2024 10:29:34
== END 2024-10-25 09:16 | disposition home or self-care (01) ==
LOC: HO.MRI 09:15
PROVIDERS: PCP Nurse Practitioner Family; Visit Provider Nurse Practitioner Family
DX: M54.50 Low back pain, unspecified (principal)
CPT/HCPCS: 72148

== ENCOUNTER 2024-11-18 08:28 | Outpatient (REF) | payer OTHER, SELFPAY ==
[2024-11-18 10:37] LABS: MANUAL DIFF FLAG NO
[2024-11-18 10:48] LABS: Basophils Absolute Auto 0.1 X10*3/uL (0.0-0.2); Basophils Percent Auto 0.5 % (0-2); Eosinophils Absolute Auto 0.2 X10*3/uL (0.0-0.4); Eosinophils Percent Auto 1.9 % (0-4); Hematocrit 49.7 % (42.0-52.0); Hemoglobin 16.3 g/dl (14.0-18.0); Imm Gran Abs Auto 0.07 X10*3/uL (0.00-0.03); Imm Gran Pct Auto 0.5 % (0.0-0.4); Lymphocytes Absolute Auto 3.6 X10*3/uL (1.2-4.9); Lymphocytes Percent Auto 27.5 % (20-40); Mean Corpuscular HGB Conc 32.8 g/dl (31.0-36.0); Mean Corpuscular Hemoglobin 29.5 pg (27.0-33.0); Mean Corpuscular Volume 89.9 fL (80.0-98.0); Mean Platelet Volume 10.7 fL (9.4-12.4); Monocytes Absolute Auto 0.9 X10*3/uL (0.1-1.2); Monocytes Percent Auto 7.1 % (2-11); Neutrophils Absolute Auto 8.1 x10*3/uL (2.0-8.3); Neutrophils Percent Auto 62.5 % (45-73); Platelet Count 270 X10*3/uL (160-400); Red Blood Count 5.53 X10*6/uL (4.60-5.80); Red Cell Distribution Width 13.5 % (11.0-16.0); White Blood Count 12.9 X10*3/uL (4.8-10.8)
[2024-11-18 11:07] LABS: Alanine Aminotransferase 19 U/L (0-40); Albumin Level 4.3 g/dL (3.5-5.0); Alkaline Phosphatase 51 U/L (39-117); Anion Gap 11 (12-20); Aspartate Amino Transferase 22 U/L (5-37); Bilirubin Total 0.2 mg/dL (0.0-1.0); Blood Urea Nitrogen 13 mg/dL (9-16); Calcium 9.5 mg/dL (8.4-10.2); Carbon Dioxide 27 mmol/L (22-29); Chloride 109 mmol/L (96-108); Estimated Glomerular Filt Rate > 60; Glucose Random 126 mg/dL (60-115); Potassium 4.5 mmol/L (3.3-5.1); Sodium 142 mmol/L (135-145); Total Protein 7.3 g/dL (6.5-8.0)
[2024-11-18 11:13] LABS: Estimated Average Glucose 128 mg/dL; Hemoglobin A1c % 6.1 % (<6.0)
[2024-11-18 11:54] LABS: Folate 5.9 ng/mL (> or = 4.0); Vitamin B12 747 pg/mL (200-900)
== END 2024-11-18 08:29 | disposition home or self-care (01) ==
LOC: HO.HMGCLDS 08:28
PROVIDERS: PCP Nurse Practitioner Family; Visit Provider Nurse Practitioner Family
DX: E11.9 Type 2 diabetes mellitus without complications (principal); E53.8 Deficiency of other specified B group vitamins; L30.9 Dermatitis, unspecified
CPT/HCPCS: 36415; 80053; 82607; 82746; 83036; 85025; 96127; 99212

== ENCOUNTER 2024-11-18 08:28 | Outpatient (AMB) | payer OTHER, SELFPAY ==
[2024-11-18 08:30] VITALS: PULSE 91; TEMP 36.6; O2SAT 98; BMI 32.0
--- NOTE | 2024-11-18 08:30 | MHC.PC.OV ---
Vital Signs 11/18/24 08:30 Height 5 ft 8 in Weight 210 lb 6 oz BMI 32.0 Pulse 91 Pulse Source Pulse Oximeter Temp 97.9 F Temp Source Oral Pulse Oximetry (%) 98 Oxygen Delivery Method Room Air Intake Visit Reasons: 4m follow up Intake Note: Pt is here today for 4 month follow up. Allergies lisinopril Allergy (Severe, Verified 11/18/24 08:40) Anaphylaxis clindamycin Allergy (Mild, Verified 11/18/24 08:40) Itching doxycycline Allergy (Mild, Verified 11/18/24 08:40) Shortness of Breath Tobacco use date assessed: 11/18/24 Dental Screening Dental Screen Date: 11/18/24 Did you have a dental visit in the last 12 months?: Yes Did you have a dental problem in the last 6 months where you did not have access to dental care?: No Was dental information given to patient?: Patient has dentist HPI 4m follow up HPI Details Chief Complaint The patient reports itching and erythema in the groin region. History of Present Illness The patient is a 53-year-old male presenting with a generalized follow-up for the management of Type 2 Diabetes Mellitus and associated conditions. He underwent bariatric surgery in the past to assist with his diabetes management. The patient also has a history of Vitamin B12 deficiency, which requires ongoing monitoring. He reports new symptoms of itching and erythema in the groin region, which are consistent with his known history of Hidradenitis Suppurativa. The patient has been receiving Adalimumab (Humira) for this condition, noting the presence of such rashes even prior to starting this treatment. Additionally, the skin symptoms appear to be potentially fungal in nature. The patient denies recent neuropathy, chest pain, or dyspnea and is making efforts to quit smoking. Social History - Actively attempting to quit smoking. Health Maintenance - Monitor A1c levels regularly for diabetes management. - Monitor Vitamin B12 levels due to history of deficiency. Review of Systems - Dermatological: Reports itching and erythema in the groin region. - Cardiovascular: Denies chest pain. - Respiratory: Denies shortness of breath. - Neurological: Denies neuropathy. Physical Exam General: Cooperative, healthy appearing, comfortable, no acute distress and well developed Orientation: Patient oriented x3 Limitations: No limitations Head: Normal to inspection Ears: Hearing grossly normal bilaterally Nose: Normal external nose present Face and sinus: Normal facial exam Eyes: Appearance normal, both eyes and all related structures Neck: Normal visual inspection and Yes full ROM Respiratory: Diminished lung sounds, moving air bilaterally Cardiovascular: Regular rate and rhythm. S1 and S2 GI: Normal to inspection. Soft to palpation and nontender Skin: macular erythema throughout inguinal region and noted to glans penis Neuro: Patient oriented x3 Extremities: Normal to inspection Results - Labs: A1c check pending. - Labs: Vitamin B12 level check. Plan 1. 5 to 2 weeks. The patient is encouraged to follow up with a straight ruling machine operator if symptoms persist. I will also support his goal of quitting smoking.: Discussion Notes I discussed with the patient the importance of monitoring A1c levels and Vitamin B12 levels due to his medical history. I explained the suspected fungal nature of the erythematous rash and the recommended use of a topical cream. We discussed the significance of smoking cessation, which he is making efforts towards, and I encouraged him to continue this positive change. I also advised a follow-up with a straight ruling machine operator if the skin condition does not improve. Patient Instructions - Use the prescribed cream as directed for 1.5 to 2 weeks. - Follow up with your straight ruling machine operator if the rash does not improve. - Continue with efforts to quit smoking. - Return for A1c and B12 level checks as scheduled. [facility] Medical History Retinopathy Nicotine dependence, cigarettes, uncomplicated Diverticulosis Alcohol dependence Heroin abuse Overweight (BMI 25.0-29.9) Intestinal malabsorption following gastrectomy Varicose veins of left lower extremity Kidney disease Gout Obstructive sleep apnea Bipolar 1 disorder Hyperlipidemia Hypertension Diabetes Surgical History History of sleeve gastrectomy History of colonoscopy Family History Father No problems noted. Mother HTN (hypertension) Brother No problems noted. Sister No problems noted. Social History Housing: Apartment Alcohol intake: former Patient Tobacco Use Status: Current everyday Tobacco user Tobacco use type: Cigarette Cigarette Packs Per Day: 1.5 Cigarettes Per Day: 25 Years Smoked: 38 e-Cigarette/Vaping Use: Never Used Second Hand Smoke Exposure: No Substance Use Type: Crack/Cocaine Advance Directives Date on File: 08/15/16 Current occupational status: disabled Cognitive needs: No Hearing needs: No Vision needs: No Questionnaire PHQ-9 Over the last 2 weeks, how often have you been bothered by any of the following problems? 1. Little interest or pleasure in doing things: nearly every day 2. Feeling down, depressed, or hopeless: not at all 3. Trouble falling or staying asleep, or sleeping too much: more than half the days 4. Feeling tired or having little energy: not at all 5. Poor appetite or overeating: not at all 6. Feeling bad about yourself - or that you are a failure or have let yourself or your family down: not at all 7. Trouble concentrating on things, such as reading the newspaper or watching television: not at all 8. Moving or speaking so slowly that other people could have noticed. Or the opposite - being so fidgety or restless that you have been moving around a lot more than usual: not at all 9. Thoughts that you would be better off or of hurting yourself in some way: not at all Total score: 5 Depression Screening Interpretation: Negative Depression Screening Done: Yes [id number] - PHQ-9 Billing: Yes Source: Developed by Drs. Herve Berg, Dina Segovia, Frederick Sandoval and colleagues, with an educational annelise from [employer]. Thrive Questionnaire Date Thrive assessed: 11/18/24 I am a: Patient What is your living situation today?: I have a steady place to live Within the past 12 months, did the food you bought not last and you didn't have the money to get more?: Never true Within the past 12 months, did you worry whether your food would run out before you got money to buy more?: Never true Do you have trouble paying for medicines?: No Do you have trouble getting transportation to medical appointments?: No Do you have trouble paying your heating and electricity bill?: No Do you have trouble taking care of your child, family member or friend?: No Do you have trouble with day-to-day activities such as bathing, preparing meals, shopping, managing finances, etc.?: No Are you currently unemployed and looking for a job?: No Are you interested in more education?: No Please select the resources that you would like help with: None Currently or been in a relationship where the following occur: I choose not to answer THRIVE Score: 0 AUDIT C Alcohol Use Questionnaire (AUDIT-C) 1. How often do you have a drink containing alcohol?: Never 3. How often do you have six or more drinks on one occasion?: Never Total Score: 0 Score Reviewed/Action Taken: Yes FELIX-7 AMB Questionnaire FELIX-7 Date FELIX - 7 assessed: 11/18/24 Feeling nervous, anxious, or on edge: 0 = Not at all Not being able to stop or control worryin = Not at all Worrying too much about different things: 0 = Not at all Trouble relaxin = Not at all Being so restless that it is hard to sit still: 0 = Not at all Becoming easily annoyed or irritable: 0 = Not at all Feeling afraid as if something awful might happen: 0 = Not at all Total FELIX-7 score (0-4 normal; 5-9 mild; 10-14 moderate; 15-21 severe): 0 Source: Developed by Drs. Herve Berg, Dina Segovia, Frederick Sandoval and colleagues, with an educational annelise from [employer]. FELIX-7 Assessment Billing FELIX-7 Assessment Tool: FELIX-7 Assessment 26050 Physical exam (Primary Care) Vital Signs: Last Vital Signs Temp 97.9 F 11/18/24 08:30 Pulse 91 11/18/24 08:30 Pulse Ox 98 11/18/24 08:30 Oxygen Delivery Method Room Air 11/18/24 08:30 BMI result Body Mass Index 32.0 Tobacco/Smoking Status: Tobacco use Status Tobacco use date assessed 11/18/24 11/18/24 08:41 Patient Tobacco Use Status Current everyday Tobacco 11/18/24 08:30 Tobacco use type Cigarette 11/18/24 08:30 e-Cigarette/Vaping Use Never Used 11/18/24 08:30 PHQ-9: PHQ-9 Score PHQ-9: Total score 5 11/18/24 08:50 Depression Screening Interpretation: Negative Thrive Assessment: Date of Thrive Assessment Date Thrive assessed 11/18/24 11/18/24 08:41 Currently or been in a relationship where the following occur: I choose not to answer Coding Level of Care Code Est Pt Level 3 (89708) Diagnoses B12 deficiency E53.8 Diabetes E11.9 Dermatitis L30.9 Additional Codes FELIX-7 Assessment Billing - FELIX-7 Assessment Tool: FELIX-7 Assessment 76362 ([id number]) PHQ-9 - 35268 - PHQ-9 Billing: Yes ([id number]) Assessment & Plan Assessment & Plan (1) B12 deficiency: Code(s): E53.8 - Deficiency of other specified B group vitamins Category: Medical (2) Diabetes: Comment: off Rx since weight loss surgery Code(s): E11.9 - Type 2 diabetes mellitus without complications Category: Medical (3) Dermatitis: Code(s): L30.9 - Dermatitis, unspecified Category: Medical Plan . Orders: Orders Vitamin B12 and Folate Today E53.8 - Deficiency of other specified B group vitamins Comprehensive Met. Panel Today E53.8 - Deficiency of other specified B group vitamins Hemoglobin A1c Today E11.9 - Type 2 diabetes mellitus without complications Complete Blood Count Auto Diff Today E53.8 - Deficiency of other specified B group vitamins Medications: New clotrimazole-betamethasone 1-0.05 % 1 appl topical BID 15 grams 0RF 2 weeks
== END 2024-11-18 08:59 | disposition home or self-care (01) ==
LOC: HO.HMCC 08:28
PROVIDERS: PCP Nurse Practitioner Family; Visit Provider Nurse Practitioner Family
DX: E53.8 Deficiency of other specified B group vitamins (principal); E11.620 Type 2 diabetes mellitus with diabetic dermatitis; L30.9 Dermatitis, unspecified

== ENCOUNTER 2024-11-21 08:20 | Outpatient (AMB) | payer OTHER, SELFPAY ==
--- NOTE | 2024-11-21 08:26 | A.OFFVIS_ITS ---
VS Expanded 11/21/24 08:27 BP 121/70 Blood Pressure Location Lt brachial Blood Pressure Position Sitting Pulse 91 Height 5 ft 8 in Weight 207 lb BMI 31.5 Body Fat % 27.9 Body Fat Mass 57.8 Fat Free Mass 149.0 Visceral Fat Rating 15 Body Water % 51.4 Body Water Mass 106.2 Muscle Mass/Score 7.2 Basal Metabolic Rate/Score 1,983 Intake Visit Reasons: (OV) PO LSG 10/26/18 Intake Note: Follow-up po lsg 10/26/18 feeling good Retort Load Expediter Required: No Allergies lisinopril Allergy (Severe, Verified 11/18/24 08:40) Anaphylaxis clindamycin Allergy (Mild, Verified 11/18/24 08:40) Itching doxycycline Allergy (Mild, Verified 11/18/24 08:40) Shortness of Breath Medication List - Last Reconciled 11/21/24 by JULIANO Do acetaminophen 1,000 mg (2 x 500 mg) PO Q6H PRN adalimumab (Humira(CF) Pen Crohn's-Ulc Colitis-Hid Sup Strt) inject two - 80 mg/0.8 mL pens on Day 1; inject one - 80 mg/0.8 mL pen on Day 15 of therapy subcut atorvastatin 10 mg PO BEDTIME 90 days bupropion HCl XL 300 mg PO QAM cholecalciferol (vitamin D3) 25 mcg PO DAILY 90 days clotrimazole-betamethasone 1-0.05 % 1 appl topical BID 2 weeks cyanocobalamin (vitamin B-12) 500 mcg PO DAILY ibuprofen 800 mg PO Q8H multivitamin 1 tab PO DAILY topiramate 100 mg PO DAILY ziprasidone HCl (Geodon) 120 mg PO BEDTIME zolpidem 10 mg PO BEDTIME HPI Comments Details: 53-year-old male returns to the office today in follow-up. He is approximately 6 years post sleeve gastrectomy performed 10/26/2018. He was last seen in the office on 11/02/2023 with a weight of 197.8 lb and a BMI of 30.1. He had labs done several days ago regarding CBC and Chem 7. He was additionally seen by his primary care physician and is being followed for his chronic medical conditions. Weight today is 207 lb with a BMI of 31.4. Had relapse with etoh for 1 day on 07/29/24 and crack cocaine on 07/29/24 and had an AL. Needs to quit smoking. Still smoking 1 ppd Having trouble with L4-5 back pain and following up with [facility] in November. Has premier protein and pure protien bars meal plan: nothing formal Drinking 4-6 cans of diet Coke daily exercise plan: nothing formal Any post op complications: none KANDICE: resolved DM: cresolved HTN: continues Hyperlipidemia: continues GERD:?0-5 scale ??0 = no symptoms ??1 = symptoms noticeable but not bothersome 2 =symptoms bothersome but not daily ? 3 = symptoms bothersome and daily 4 = symptoms affect daily activities 5 = symptoms are incapacitating, unable to do daily activities ? How bad is the heartburn: 0 ? Heartburn while lying down: 0 ? Heartburn when standing up: 0 ? Heartburn after meals: 0 ? Does heartburn change your diet: 0 ? Does heartburn wake you up from sleep: 0 ? Do you have difficulty swallowin ? Do you have pain with swallowin ? If you take medicine for your reflux, does this affect your daily life: 0 Satisfaction with present condition - satisfied or not satisfied: not satisfied [facility] Medical History Retinopathy Nicotine dependence, cigarettes, uncomplicated Diverticulosis Alcohol dependence Heroin abuse Overweight (BMI 25.0-29.9) Intestinal malabsorption following gastrectomy Varicose veins of left lower extremity Kidney disease Gout Obstructive sleep apnea Bipolar 1 disorder Hyperlipidemia Hypertension Diabetes Surgical History History of sleeve gastrectomy History of colonoscopy Family History Father No problems noted. Mother HTN (hypertension) Brother No problems noted. Sister No problems noted. Social History Housing: Apartment Alcohol intake: former Patient Tobacco Use Status: Current everyday Tobacco user Tobacco use type: Cigarette Cigarette Packs Per Day: 1.5 Cigarettes Per Day: 25 Years Smoked: 38 e-Cigarette/Vaping Use: Never Used Second Hand Smoke Exposure: No Substance Use Type: Crack/Cocaine Advance Directives Date on File: 08/15/16 Current occupational status: disabled Cognitive needs: No Hearing needs: No Vision needs: No Physical Exam Vital Signs: Last Vital Signs Pulse 91 11/21/24 08:27 BP 121/70 11/21/24 08:27 BMI result Body Mass Index 31.5 Const General: cooperative and no acute distress Orientation/consciousness: patient oriented x3 Resp Effort & Inspection: normal respiratory effort Auscultation: clear to auscultation bilaterally Cardio Rate: regular rate Rhythm: regular rhythm GI Inspection: Yes normal to inspection and Yes incision (well healed) Palpation (GI): Soft to palpation and no masses Neuro General: patient oriented x3 Assessment & Plan Assessment & Plan (1) S/P laparoscopic sleeve gastrectomy: Comment: (Dr. Bro, [facility] [place] - 11/14/2018) Code(s): Z98.84 - Bariatric surgery status Category: Surgical Plan: 5-7 shake with 1 scoop in 8 oz of unsweetened almond milk 10-noon another shake 2-4 pure protein bar 530 pm meal with 7 forks protein and 7 forks vegetables Patient was encouraged to stop drinking 12 packs of diet Coke. Encouraged to quit smoking. Drink more water. Goal of 50-60 oz of water daily. He is going to go to [facility] for his back pain. He will exercise as he is able, using stationary bike at the senior center. Return to clinic 6 months. Additionally, check vitamin levels Orders: Orders IRON PROFILE Today E11.9 - Type 2 diabetes mellitus without complications, E55.9 - Vitamin D deficiency, unspecified, K91.2 - Postsurgical malabsorption, not elsewhere classified, Z90.3 - Acquired absence of stomach [part of], Z98.84 - Bariatric surgery status Zinc Today E11.9 - Type 2 diabetes mellitus without complications, E55.9 - Vitamin D deficiency, unspecified, K91.2 - Postsurgical malabsorption, not elsewhere classified, Z90.3 - Acquired absence of stomach [part of], Z98.84 - Bariatric surgery status Vitamin A Today E11.9 - Type 2 diabetes mellitus without complications, E55.9 - Vitamin D deficiency, unspecified, K91.2 - Postsurgical malabsorption, not elsewhere classified, Z90.3 - Acquired absence of stomach [part of], Z98.84 - Bariatric surgery status Vitamin D 25-OH Total Today E11.9 - Type 2 diabetes mellitus without complications, E55.9 - Vitamin D deficiency, unspecified, K91.2 - Postsurgical malabsorption, not elsewhere classified, Z90.3 - Acquired absence of stomach [part of], Z98.84 - Bariatric surgery status Vitamin B1 Today E11.9 - Type 2 diabetes mellitus without complications, E55.9 - Vitamin D deficiency, unspecified, K91.2 - Postsurgical malabsorption, not elsewhere classified, Z90.3 - Acquired absence of stomach [part of], Z98.84 - Bariatric surgery status Ferritin Today E11.9 - Type 2 diabetes mellitus without complications, E55.9 - Vitamin D deficiency, unspecified, K91.2 - Postsurgical malabsorption, not elsewhere classified, Z90.3 - Acquired absence of stomach [part of], Z98.84 - Bariatric surgery status
[2024-11-21 08:27] VITALS: BP 121/70; PULSE 91; BMI 31.5
== END 2024-11-21 09:06 | disposition home or self-care (01) ==
LOC: HO.HBS 08:20
PROVIDERS: PCP Nurse Practitioner Family; Visit Provider Physician Assistant Surgical
DX: E66.811 Obesity, class 1 (principal); Z68.31 Body mass index [BMI] 31.0-31.9, adult; Z90.3 Acquired absence of stomach [part of]; Z98.84 Bariatric surgery status
CPT/HCPCS: 99214; G2211

== ENCOUNTER → 2024-11-21 08:20 | Outpatient (BNVA) | payer OTHER, SELFPAY | PROVIDERS: PCP Nurse Practitioner Family; Visit Provider Physician Assistant Surgical | DX: Z98.84 Bariatric surgery status (principal); Z79.899 Other long term (current) drug therapy | CPT/HCPCS: 99212 ==

== ENCOUNTER 2024-12-11 07:49 | Outpatient (REF) | payer OTHER, SELFPAY ==
--- NOTE | ~2024-12-11 | CT_ITS ---
CLINICAL HISTORY: F17.210 - Nicotine dependence, cigarettes, uncomplicated CT lung cancer screening (LDCT) Comparison: CT/OR/SR - CT LUNG SCREENING - 12/14/23 10:08 EDT Technique: Axial CT images of the chest using low-dose technique. Referring provider counseled the patient on shared decision-making for LDCT screening. Additional counseling was provided on smoking cessation. Effective radiation dose total: DLP 57.4 mGycm, CTDIvol 1.8 mGy. Findings: Lung: Emphysema. Subpleural fibrotic changes most prominent in the anterior left upper lobe, similar to prior. Few punctate calcified granulomas. Coronary artery calcifications: Moderate Limited upper abdomen: Postsurgical changes in the stomach. Other: Ascending aorta measures 4.0 x 3.8 cm (coronal by sagittal). Impression: Category 1: Normal; continue annual screening Category 1: Normal; continue annual screening Category 2: Benign appearance or behavior, continue annual screening Category 3: Probably benign, [address] recommended Category 4A: Suspicious, [address] recommended; may consider PET/CT Category 4B: Suspicious, Additional diagnostics and/or tissue sampling recommended Category 4X: Suspicious, Additional diagnostics and/or tissue sampling recommended Category 0: Recalls (incomplete screen due to Incomplete coverage, Noise, Respiratory motion, Expiration, Obscured by acute abnormality) This document has been electronically signed by: Johnathan Delaney MD on 12/11/2024 20:05:40
== END 2024-12-11 07:50 | disposition home or self-care (01) ==
LOC: HO.CT 07:49
PROVIDERS: PCP Family Medicine; Visit Provider Physician Assistant Medical
DX: Z12.2 Encounter for screening for malignant neoplasm of respiratory organs (principal); F17.210 Nicotine dependence, cigarettes, uncomplicated
CPT/HCPCS: 71271

== ENCOUNTER → 2024-12-11 07:50 | Outpatient (BNV) | payer OTHER, SELFPAY | PROVIDERS: PCP Family Medicine; Visit Provider Radiology Diagnostic Radiology | DX: F17.210 Nicotine dependence, cigarettes, uncomplicated (principal) | CPT/HCPCS: 71271 ==

== ENCOUNTER 2025-03-23 10:36 | Outpatient (AMB) | payer OTHER, SELFPAY ==
--- NOTE | 2025-03-23 11:18 | A.OFFVIS_ITS ---
Vital Signs 03/23/25 11:19 Height 5 ft 8 in Weight 205 lb 0.478 oz BMI 31.2 BP 102/64 Blood Pressure Location Lt brachial Position Sitting Pulse 95 Pulse Source Pulse Oximeter Pulse Oximetry (%) 95 Oxygen Delivery Method Room Air Intake Visit Reasons: copd Intake Note: pt is here as a new patient, some short of breath only at times, does not affect him from doing things. Tire Balancer Required: No Allergies lisinopril Allergy (Severe, Verified 03/23/25 11:35) Anaphylaxis clindamycin Allergy (Mild, Verified 03/23/25 11:35) Itching doxycycline Allergy (Mild, Verified 03/23/25 11:35) Shortness of Breath Medication List - Last Reconciled 03/23/25 by Saravanan Stephenson MD acetaminophen 1,000 mg (2 x 500 mg) PO Q6H PRN adalimumab (Humira(CF) Pen Crohn's-Ulc Colitis-Hid Sup Strt) inject two - 80 mg/0.8 mL pens on Day 1; inject one - 80 mg/0.8 mL pen on Day 15 of therapy subcut atorvastatin 10 mg PO BEDTIME 90 days bupropion HCl XL 300 mg PO QAM cholecalciferol (vitamin D3) 25 mcg PO DAILY 90 days clotrimazole-betamethasone 1-0.05 % 1 appl topical BID 2 weeks cyanocobalamin (vitamin B-12) 500 mcg PO DAILY multivitamin 1 tab PO DAILY topiramate 100 mg PO DAILY ziprasidone HCl (Geodon) 120 mg PO BEDTIME zolpidem 10 mg PO BEDTIME Do you need a note to return to daycare/school/sports/work: No HPI HPI copd: Details: This 54 years old gentleman is being seen for the 1st time for pulmonary evaluation and ongoing management. He has bipolar disorder and is of his simple mind. He is not sure why he has been sent to see me. From the history, it is evident that he has been a long-time smoker currently 1 pack a day. He also has history of the intermittent and alcohol consumption., currently attending AA. meeting . States that he does not go outdoors or walk much because he has degenerative arthritis of the lower spine. He does have only mild intermittent cough mostly related to smoking and mostly in the morning hours Denies any wheezing attacks. He denies any specific dyspnea on exertion because he does not walk much. He say is he has past history of sleep apnea but after he had Bariatric surgery back in 2019, he lost significant weight and his sleep apnea resolved. He had low-dose CT scan last 1 in November 2024 and it was reported to be normal [facility] Medical History Retinopathy Nicotine dependence, cigarettes, uncomplicated Diverticulosis Alcohol dependence Heroin abuse Overweight (BMI 25.0-29.9) Intestinal malabsorption following gastrectomy Varicose veins of left lower extremity Kidney disease Gout Obstructive sleep apnea Bipolar 1 disorder Hyperlipidemia Hypertension Diabetes Surgical History History of sleeve gastrectomy History of colonoscopy Family History Father No problems noted. Mother HTN (hypertension) Brother No problems noted. Sister No problems noted. Social History Housing: Apartment Alcohol intake: former Patient Tobacco Use Status: Current everyday Tobacco user Tobacco use type: Cigarette Cigarette Packs Per Day: 1.5 Cigarettes Per Day: 25 Years Smoked: 38 e-Cigarette/Vaping Use: Never Used Second Hand Smoke Exposure: No Substance Use Type: Crack/Cocaine Advance Directives Date on File: 08/15/16 Current occupational status: disabled Cognitive needs: No Hearing needs: No Vision needs: No Review of Systems Const All systems reviewed & are unremarkable except as noted in HPI and below Eyes Reports no additional complaints ENT Reports no additional complaints Card Denies chest pain, Denies irregular heart rhythm and Denies leg edema Resp Reports as per HPI GI Reports heartburn and Reports diarrhea Reports no additional complaints Musc Reports back pain Skin/Breast Reports system reviewed and no additional complaints, except as documented Neuro Reports no additional complaints Psych Reports anxiety, Reports mood swings and Reports other (Bipolar disorder) Endo Reports no additional complaints Levi/Lymph Reports no additional complaints Aller/Immun Reports no additional complaints Physical Exam Vital Signs: Last Vital Signs Pulse 95 03/23/25 11:19 BP 102/64 03/23/25 11:19 Pulse Ox 95 03/23/25 11:19 Oxygen Delivery Method Room Air 07/28/25 11:19 BMI result Body Mass Index 31.2 Const General: healthy appearing, comfortable, no acute distress, alert and awake Orientation/consciousness: patient oriented x3 HEENT Head: Yes normal to inspection General nose exam: No nasal polyps present and No nasal discharge present Face and sinus: Yes sinuses nontender Mouth: oropharynx normal Throat: Yes posterior oropharynx normal Eyes General: appearance normal, both eyes and all related structures Neck Neck: Yes normal visual inspection, Yes no lymphadenopathy, Yes trachea midline and Yes no JVD Thyroid: Thyroid normal Chest Chest palpation & inspection: normal inspection of the chest, normal palpation of entire chest wall and no tenderness Resp Effort & Inspection: normal respiratory effort Auscultation: clear to auscultation bilaterally, no crackles, no rhonchi and no wheezes Cardio Palpation: normal PMI Rate: regular rate Rhythm: regular rhythm Heart sounds: no gallops and no murmurs Peripheral pulses: Peripheral pulses 2+ throughout GI Palpation (GI): Soft to palpation, nontender, No hepatosplenomegaly present and no masses Auscultation: normal bowel sounds Back/Spine/Pelvis Thoracic/Lumbar Spine: thoracic and lumbar spine normal to inspection Skin General skin exam: no rashes or lesions noted Neuro General: patient oriented x3 and no focal motor deficits Cranial nerves: Yes CN's II-XII intact bilaterally Extrem General: Yes normal to inspection, Yes no clubbing, cyanosis or edema and Yes no calf tenderness Psych Appearance: grossly normal and well kempt Speech and movement: Normal speech and movement present Results Reviewed Results Reviewed: LDCT of the chest, on 12/11/2024 NORMAL Assessment & Plan Assessment & Plan (1) Nicotine dependence, cigarettes, uncomplicated: Comment: (current smoker, onset 13yo, 1ppd x 40yrs, 40pyh) Code(s): F17.210 - Nicotine dependence, cigarettes, uncomplicated Category: Medical Plan: Encouraged to stay in the annual lung screening program and get low-dose CT scan every year (2) S/P laparoscopic sleeve gastrectomy: Comment: (Dr. Bro, [facility] [place] - 11/14/2018) Before this bariatric surgery he has history of being overweight, and needed to use CPAP for sleep apnea. After the surgery he had significant weight loss and sleep apnea resolved . Code(s): Z98.84 - Bariatric surgery status Category: Surgical Plan: He no longer needs CPAP . And sleeps good. (3) COPD (chronic obstructive pulmonary disease): Comment: Has mild intermittent cough, and gets short of breath if he walks fast, Denies any bouts of wheezing. Code(s): J44.9 - Chronic obstructive pulmonary disease, unspecified Category: Medical Plan: Patient needs to be evaluated for possible chronic obstructive pulmonary disease. HE WILL HAVE PULMONARY FUNCTION TEST PERFORMED , AND THEN DECIDE IF HE NEEDS ANY BRONCHODILATORS INHALERS Orders: Orders PFT pulmonary function test Today F17.210 - Nicotine dependence, cigarettes, uncomplicated, J44.9 - Chronic obstructive pulmonary disease, unspecified Coding Level of Care Code New Pt Level 3 (49038) Diagnoses Nicotine dependence, cigarettes, uncomplicated F17.210 S/P laparoscopic sleeve gastrectomy Z98.84 COPD (chronic obstructive pulmonary disease) J44.9
[2025-03-23 11:19] VITALS: BP 102/64; PULSE 95; O2SAT 95; BMI 31.2
== END 2025-03-23 11:45 | disposition home or self-care (01) ==
LOC: HO.HPS 10:37
PROVIDERS: PCP Family Medicine; Visit Provider Internal Medicine
DX: F17.210 Nicotine dependence, cigarettes, uncomplicated (principal); Z98.84 Bariatric surgery status; J44.9 Chronic obstructive pulmonary disease, unspecified
CPT/HCPCS: 99203

== ENCOUNTER → 2025-03-23 10:36 | Outpatient (BNVA) | payer OTHER, SELFPAY | PROVIDERS: PCP Family Medicine; Visit Provider Internal Medicine | DX: Z98.84 Bariatric surgery status (principal); F17.210 Nicotine dependence, cigarettes, uncomplicated; J44.9 Chronic obstructive pulmonary disease, unspecified | CPT/HCPCS: 99202 ==

== ENCOUNTER 2025-04-02 14:03 | Outpatient (AMB) | payer OTHER, SELFPAY ==
--- NOTE | 2025-04-02 14:29 | AM.OFFWIN_ITS ---
Intake Vital Signs 04/02/25 14:40 Height 5 ft 8 in Weight 203 lb 2 oz BMI 30.9 BP 118/74 Blood Pressure Location Lt brachial Position Sitting Pulse 87 Pulse Source Pulse Oximeter Temp 98.2 F Temp Source Oral Pulse Oximetry (%) 96 Oxygen Delivery Method Room Air Intake Visit Reasons: EP Cyst on hip Patient Tobacco Use Status: Current everyday Tobacco user Button Riveter Required: No Allergies lisinopril Allergy (Severe, Verified 04/02/25 14:41) Anaphylaxis clindamycin Allergy (Mild, Verified 04/02/25 14:41) Itching doxycycline Allergy (Mild, Verified 04/02/25 14:41) Shortness of Breath Do you need a note to return to daycare/school/sports/work: No HPI HPI Comments History of Present Illness Details History of Present Illness - The patient is a 54-year-old male pres enting with a cyst in the left groin. - The cyst was noticed a couple of days ago and has recently started leaking. - The patient reports a history of recur rent cysts. - He states that it has been draining an d it smells. - He has pain when he touches the area. - He is supposed to be taking [place] and has not had it filled. - Has had them drained in the past - He denies fever, chills, CP, SOB, abd pain, n/v. Physical Exam General: Cooperative, healthy appearing, comfortable, no acute distress and well developed Respiratory: Normal respiratory effort and able to speak in complete sentences. Clear to auscultation bilaterally Cardiovascular: Regular rate and rhythm. Normal S1 and S2 GI: Normal to inspection. Soft to palpation and nontender Skin: Large, vertical long shaped abscess in the left groin, open and draining pus and blood. TTP to palpation with area of induration noted. Multiple scars no michelle in the groin. No warmth noted, slight erythema noted. Patient was informed and verbally consented to the use of an ambient scribe for clinic note documentation during this visit. [facility] Medical History Retinopathy Nicotine dependence, cigarettes, uncomplicated Diverticulosis Alcohol dependence Heroin abuse Overweight (BMI 25.0-29.9) Intestinal malabsorption following gastrectomy Varicose veins of left lower extremity Kidney disease Gout Obstructive sleep apnea Bipolar 1 disorder Hyperlipidemia Hypertension Diabetes Surgical History History of sleeve gastrectomy History of colonoscopy Family History Father No problems noted. Mother HTN (hypertension) Brother No problems noted. Sister No problems noted. Social History Housing: Apartment Alcohol intake: former Patient Tobacco Use Status: Current everyday Tobacco user Tobacco use type: Cigarette Cigarette Packs Per Day: 1.5 Cigarettes Per Day: 25 Years Smoked: 38 e-Cigarette/Vaping Use: Never Used Second Hand Smoke Exposure: No Substance Use Type: Crack/Cocaine Advance Directives Date on File: 08/15/16 Current occupational status: disabled Cognitive needs: No Hearing needs: No Vision needs: No Review of Systems Const All systems reviewed & are unremarkable except as noted in HPI and below Physical Exam Vital Signs: Last Vital Signs Temp 98.2 F 04/02/25 14:40 Pulse 87 04/02/25 14:40 BP 118/74 04/02/25 14:40 Pulse Ox 96 04/02/25 14:40 Oxygen Delivery Method Room Air 04/02/25 14:40 BMI result Body Mass Index 30.9 Office Procedures I&D Drain Details: Abscess in the left groin was open and draining on its own. Expressed copious purulent dark brown foul smelling discharge manually. Cleaned the area with normal saline and placed a dry sterile dressing. Procedure was well tolerated. N o complications. [id number] of Skin Abscess, complex All charges added?: Procedure code (CPT) selection complete Assessment & Plan Assessment & Plan (1) Hidradenitis suppurativa: Code(s): L73.2 - Hidradenitis suppurativa Plan I&D in the office Plan - warm compresses to the area - soak in a sitz bath - keflex 500 mg QID for 7 days - Bactrim BID for 7 days - follow up with PCP Orders: Orders AMB Incision & Drainage Today L73.2 - Hidradenitis suppurativa Medications: New cephalexin 500 mg PO Q6H 28 caps 0RF sulfamethoxazole-trimethoprim 800-160 mg (Bactrim DS) 1 tab PO Q12H 14 tabs 0RF Coding Level of Care Code Est Pt Level 4 (20388) Diagnoses Hidradenitis suppurativa L73.2 CPT Codes I&D Drain - Drain 2: [id number] of Skin Abscess, complex ([id number])
[2025-04-02 14:40] VITALS: BP 118/74; PULSE 87; TEMP 36.8; O2SAT 96; BMI 30.9
== END 2025-04-02 15:35 | disposition home or self-care (01) ==
PROVIDERS: PCP Family Medicine; Visit Provider Physician Assistant Medical
DX: L73.2 Hidradenitis suppurativa (principal)

== ENCOUNTER → 2025-04-02 14:03 | Outpatient (BNVA) | payer OTHER, SELFPAY | PROVIDERS: PCP Family Medicine; Visit Provider Physician Assistant Medical | DX: L73.2 Hidradenitis suppurativa (principal) | CPT/HCPCS: 10060; 99212 ==

== ENCOUNTER 2025-04-03 07:54 | Outpatient (REF) | payer OTHER, SELFPAY ==
--- NOTE | 2025-04-03 07:58 | PFT_ITS ---
Flows: FEV1: 89 % of predicted at 3.09 L FVC: 101 % of predicted at 4.48 L FEV1/FVC: 69 % Bronchodilator response: Absent Volumes: Total lung capacity: 108 % of predicted at 7.28 L Residual volume: 144 % of predicted at 2.79 L Slow vital capacity: 92 % of predicted at 4.48 L Expiratory reserve volume: 104 % of predicted at 1.30 L Diffusion capacity: Moderately decreased Impression: Mild obstructive ventilatory defect with no bronchodilator response. Increased residual volume suggests air trapping. Decreased diffusion capacity suggests emphysema. MTDD
[2025-04-03 09:02] VITALS: PULSE 105; O2SAT 97
== END 2025-04-03 07:55 | disposition home or self-care (01) ==
LOC: HO.RESP 07:54
PROVIDERS: PCP Nurse Practitioner Family; Visit Provider Internal Medicine
DX: J44.9 Chronic obstructive pulmonary disease, unspecified (principal); F17.210 Nicotine dependence, cigarettes, uncomplicated
CPT/HCPCS: 94010; 94640; 94727; 94729

== ENCOUNTER → 2025-04-03 07:58 | Outpatient (BNV) | payer OTHER, SELFPAY | PROVIDERS: PCP Nurse Practitioner Family; Visit Provider Internal Medicine Pulmonary Disease | DX: F17.210 Nicotine dependence, cigarettes, uncomplicated (principal); J44.9 Chronic obstructive pulmonary disease, unspecified | CPT/HCPCS: 94060; 94727; 94729 ==